=== PATIENT | male | born 1975 | race Caucasian/White ===

== ENCOUNTER 2018-05-08 14:23 | Emergency (ER) | payer OTHER, MEDICARE, MEDICAID ==
[~2018-05-08] VITALS: Ht 175.3 cm; Wt 70.3 kg
--- OUTSIDE RECORDS SUMMARY | ~2018-05-08 | XMS | Encounter Summary ---
Demographics + + + | Address | [address] | | | [place] [address] | + + + | Home Phone | | + + + | Preferred Language | Unknown | + + + | Marital Status | Single | + + + | Baptist Affiliation | NON | + + + | Race | White | + + + | Ethnic Group | Not or | + + + Author + + + | Author | [facility] | + + + | Organization | [facility] | + + + | Address | Unknown | + + + | Phone | Unavailable | + + + Support + + +---------+ + | Name | Relationship | Address | Phone | + + +---------+ + | Vi Chatman | ECON | Unknown | | + + +---------+ + Care Team Providers + +------+ + | Care Library Page Name | Role | Phone | + +------+ + | Tony Emmanuel MD | PCP | | + +------+ + Encounter Details +--------+ + + + + | Date | Type | Department | Care Team | Description | +--------+ + + + + | 04/19/ | Abstract | Neurologic | Lavell Wallace, | | | 2018 | | Oncology at | MD [facility] | | | | | [facility] | [address] | | | | | [address] | [place], [place] | | | | | [facility] | [address] | | | | | Mailcode: [address] | [phone] | | | | | [facility] | | | | | | [place], [place] | | | | | | [address] | | | | | | [phone] | | | +--------+ + + + + Social History + + + +--------+ + | Tobacco Use | Types | Packs/Day | Years | Date | | | | | Used | | + + + +--------+ + | Former Smoker | Cigarettes | 1 | 4 | Quit: 08/16/2002 | + + + +--------+ + + +---+---+---+ | Smokeless Tobacco: | | | | | Never Used | | | | + +---+---+---+ + + +---------+ + | Alcohol Use | Drinks/We | oz/Week | Comments | | | ek | | | + + +---------+ + | Yes | | | rare | + + +---------+ + + + + | Sex Assigned at | Date Recorded | | | | + + + | Not on file | | + + + as of this encounter Plan of Treatment +--------+---------+ + + + | Date | Type | Specialty | Care Team | Description | +--------+---------+ + + + | 06/30/ | Office | Neurology | | | | 2018 | Visit | | | | +--------+---------+ + + + | 07/06/ | Office | Neurology | Wanda Miranda, | | | 2017 | Visit | | [address] | | | | | | [address] | | | | | | [place], [place] | | | | | | [address] | | | | | | [phone] | | | | | | | | +--------+---------+ + + + as of this encounter Procedures + +--------+ + + + | Procedure Name | Priori | Date/Time | Associated Diagnosis | Comments | | | ty | | | | + +--------+ + + + | CBC, WITH | Routin | 04/08/2018 | | Results for this | | DIFFERENTIAL | e | 12:00 AM | | procedure are in the | | | | PDT | | results section. | + +--------+ + + + in this encounter Results CBC, WITH DIFFERENTIAL (04/08/2018) + +-------+ + + | Component | Value | Ref Range | Performed At | + +-------+ + + | WHITE CELL COUNT | 4.1 | K/cu mm | [facility] | | | | | [place] | + +-------+ + + | RED CELL COUNT | 3.89 | M/cu mm | [facility] | | | | | [place] | + +-------+ + + | HEMOGLOBIN | 13.6 | 13.5 - 17.5 g/dL | [facility] | | | | | [place] | + +-------+ + + | HEMATOCRIT | 40.9 | % | [facility] | | | [place] | + +-------+ + + | MCV | 105.4 | fL | [facility] | | | | [place] | + +-------+ + + | MCH | 35 | pg | [facility] | | | | | [place] | + +-------+ + + | MCHC | 33 | g/dL | [facility] | | | | | [place] | + +-------+ + + | PLATELET COUNT | 189 | K/cu mm | [facility] | | | | [place] | + +-------+ + + | NEUTROPHIL % | 51.2 | % | [facility] | | | | | [place] | + +-------+ + + | LYMPHOCYTE % | 38.8 | % | [facility] | | | | [place] | + +-------+ + + | MONOCYTE % | 7.4 | % | [facility] | | | | [place] | + +-------+ + + | EOS % | 1.6 | % | [facility] | | | | | [place] | + +-------+ + + | BASO % | 1 | % | [facility] | | | | [place] | + +-------+ + + | RDW | 15.3 | % | [facility] | | | | | [place] | + +-------+ + + + + | Specimen | + + | Blood - Blood | + + + + + + + | Performing | Address | City/State/Zipcode | Phone Number | | Organization | | | | + + + + + | [facility] - | [address] | [place] | [phone] | | [place] | | | | + + + + + in this encounter Visit Diagnoses Not on filein this encounter"
--- OUTSIDE RECORDS SUMMARY | ~2018-05-08 | XMS | Encounter Summary ---
Demographics + + + | Address | [address] | | | [place] [address] | + + + | Home Phone | | + + + | Preferred Language | Unknown | + + + | Marital Status | Single | + + + | Latter Day Affiliation | NON | + + + | Race | White | + + + | Ethnic Group | Not or | + + + Author + + + | Author | [facility] | + + + | Organization | [facility] | + + + | Address | Unknown | + + + | Phone | Unavailable | + + + Support + + +---------+ + | Name | Relationship | Address | Phone | + + +---------+ + | Vi Chatman | ECON | Unknown | | + + +---------+ + Care Team Providers + +------+ + | Care Business English Instructor Name | Role | Phone | + +------+ + | Tony Emmanuel MD | PCP | | + +------+ + Encounter Details +--------+ + + + + | Date | Type | Department | Care Team | Description | +--------+ + + + + | 03/23/ | Abstract | Neurologic | Lavell Wallace, | | | 2018 | | Oncology at | [facility] | | | | | [facility] | [address] | | | | | [address] | [place], [place] | | | | | [facility] | [address] | | | | | Mailcode: [address] | [phone] | | | | | [facility] | | | | | | [place], [place] | | | | | | [address] | | | | | | [phone] | | | +--------+ + + + [...] [address] | | | | | | [place], [place] | | | | | | [address] | | | | | | [phone] | | | | | | | | +--------+---------+ + + + as of this encounter Procedures + +--------+ + + + | Procedure Name | Priori | Date/Time | Associated Diagnosis | Comments | | | ty | | | | + +--------+ + + + | CBC, WITH | Routin | 03/18/2018 | | Results for this | | DIFFERENTIAL | e | 12:00 AM | | procedure are in the | | | | PDT | | results section. | + +--------+ + + + in this encounter Results NIXON, WITH DIFFERENTIAL (03/18/2018) + + + + + | Component | Value | Ref Range | Performed At | + + + + + | WHITE CELL COUNT | 4.1 | K/cu mm | [facility] | | | | | [place] | + + + + + | RED CELL COUNT | 3.77 | M/cu mm | [facility] | | | | | [place] | + + + + + | HEMOGLOBIN | 13.1 (A) | 13.5 - 17.5 g/dL | [facility] | | | | | [place] | + + + + + | HEMATOCRIT | 38.3 | % | [facility] | | | | | [facility] | + + + + + | MCV | 101.8 | fL | [facility] | | | | | [place] | + + + + + | MCH | 35 | pg | [facility] | | | | | [place] | + + + + + | MCHC | 34 | g/dL | [facility] | | | | | [place] | + + + + + | PLATELET COUNT | 129 | K/cu mm | [facility] | | | | | [place] | + + + + + | NEUTROPHIL % | 55.2 | % | [facility] | | | | | [place] | + + + + + | LYMPHOCYTE % | 35.5 | % | [facility] | | | | | [place] | + + + + + | MONOCYTE % | 5.3 | % | [facility] | | | | | [place] | + + + + + | EOS % | 3.1 | % | [facility] | | | | | [place] | + + + + + | BASO % | 0.9 | % | [facility] | | | | | [place] | + + + + + | RDW | 14.4 | % | [facility] | | | | | [place] | + + + + + + + | Specimen | + + | Blood - Blood | + + + + + + + | Performing | Address | City/State/Zipcode | Phone Number | | Organization | | | | + + + + + | [facility] - | [address] | [place] | [phone] | | [place] | | | | + + + + + in this encounter Visit Diagnoses Not on filein this encounter"
--- OUTSIDE RECORDS SUMMARY | ~2018-05-08 | XMS | Encounter Summary ---
Demographics + + + | Address | [address] | | | [place] [address] | + + + | Home Phone | | + + + | Preferred Language | Unknown | + + + | Marital Status | Single | + + + | Jew Affiliation | NON | + + + | Race | White | + + + | Ethnic Group | Not or | + + + Author + + + | Author | [facility] | + + + | Organization | [facility] | + + + | Address | Unknown | + + + | Phone | Unavailable | + + + Support + + +---------+ + | Name | Relationship | Address | Phone | + + +---------+ + | Vi Chatman | ECON | Unknown | | + + +---------+ + Care Team Providers + +------+ + | Care System Administration Manager Name | Role | Phone | + +------+ + | Tony Emmanuel MD | PCP | | + +------+ + Encounter Details +--------+ + + + + | Date | Type | Department | Care Team | Description | +--------+ + + + + | 03/14/ | Telephone | Neurologic | Geno Veras, | | | 2018 | | Oncology at | [employer] [address] | | | | | [facility] | [address] | | | | | [address] | [place], [place] | | | | | [facility] | [address] | | | | | Mailcode: [address] | [phone] | | | | | Physicians [facility] | | | | | | [place], [place] | | | | | | [address] | | | | | | [phone] | | | +--------+ + + + [...] Office | Neurology | | | | 2017 | Visit | | | | +--------+---------+ + + + | 07/06/ | Office | Neurology | Wanda Miranda, | | | 2017 | Visit | | [address] | | | | | | [address] | | | | | | [place], [place] | | | | | | [address] | | | | | | [phone] | | | | | | | | +--------+---------+ + + + as of this encounter Visit Diagnoses Not on filein this encounter"
--- OUTSIDE RECORDS SUMMARY | ~2018-05-08 | XMS | Encounter Summary ---
Demographics + + + | Address | [address] | | | [place] [address] | + + + | Home Phone | | + + + | Preferred Language | Unknown | + + + | Marital Status | Single | + + + | Rastafari Affiliation | NON | + + + | Race | White | + + + | Ethnic Group | Not or | + + + Author + + + | Author | [facility] | + + + | Organization | [facility] | + + + | Address | Unknown | + + + | Phone | Unavailable | + + + Support + + +---------+ + | Name | Relationship | Address | Phone | + + +---------+ + | Vi Chatman | ECON | Unknown | | + + +---------+ + Care Team Providers + +------+ + | Care Software Installation Engineer Name | Role | Phone | + +------+ + | Tony Emmanuel MD | PCP | | + +------+ + Encounter Details +--------+ + + + + | Date | Type | Department | Care Team | Description | +--------+ + + + + | 03/29/ | Pharmacy | Specialty Pharmacy | | | | 2017 | Visit | Services [address] | | | | [address] | | | | | | [place], [place] | | | | | | [address] | | | | | | [phone] | | | +--------+ + + + [...] [address] | | | | | | [place], [place] | | | | | | [address] | | | | | | [phone] | | | | | | | | +--------+---------+ + + + as of this encounter Visit Diagnoses Not on filein this encounter"
--- OUTSIDE RECORDS SUMMARY | ~2018-05-08 | XMS | Encounter Summary ---
Demographics + + + | Address | [address] | | | [place] [address] | + + + | Home Phone | | + + + | Preferred Language | Unknown | + + + | Marital Status | Single | + + + | Mormon Affiliation | NON | + + + | Race | White | + + + | Ethnic Group | Not or | + + + Author + + + | Author | [facility] | + + + | Organization | [facility] | + + + | Address | Unknown | + + + | Phone | Unavailable | + + + Support + + +---------+ + | Name | Relationship | Address | Phone | + + +---------+ + | Vi Chatman | ECON | Unknown | | + + +---------+ + Care Team Providers + +------+ + | Care Rapid Outsole Stitcher Name | Role | Phone | + [...] | | | [address] | [place], [place] | | | | | [facility] | [address] | | | | | Mailcode: [address] | [phone] | | | | | [facility] | | | | | | [place], [place] | | | | | | [address] | | | | | | [phone] | | | +--------+ + + + [...] [address] | | | | | | [place], [place] | | | | | | [address] | | | | | | [phone] | | | | | | | [address] | [place] | [phone] | | [place] | | | | + + + + + in this encounter Visit Diagnoses Not on filein this encounter"
--- OUTSIDE RECORDS SUMMARY | ~2018-05-08 | XMS | Encounter Summary ---
Demographics + + + | Address | [address] | | | [place] [address] | + + + | Home Phone | | + + + | Preferred Language | Unknown | + + + | Marital Status | Single | + + + | Scientology Affiliation | NON | + + + | Race | White | + + + | Ethnic Group | Not or | + + + Author + + + | Author | [facility] | + + + | Organization | [facility] | + + + | Address | Unknown | + + + | Phone | Unavailable | + + + Support + + +---------+ + | Name | Relationship | Address | Phone | + + +---------+ + | Vi Chatman | ECON | Unknown | | + + +---------+ + Care Team Providers + +------+ + | Care Insurance Writer Name | Role | Phone | + [...] | | | [address] | [place], [place] | | | | | [facility] | [address] | | | | | Mailcode: [address] | [phone] | | | | | Phys[facility] | | | | | | [place], [place] | | | | | | [address] | | | | | | [phone] | | | +--------+ + + + [...] [address] | | | | | | [place], [place] | | | | | | [address] | | | | | | [phone] | | | | | | | | +--------+---------+ + + + as of this encounter Procedures + +--------+ + + + | Procedure Name | Priori | Date/Time | Associated Diagnosis | Comments | | | ty | | | | + +--------+ + + + | COMPLETE METABOLIC | Routin | 04/08/2018 | | Results for this | | SET | e | 12:00 AM | | procedure are in the | | (NA,K,CL,CO2,BUN,CRE | | PDT | | results section. | | AT,GLUC,CA,AST,ALT,B | | | | | | MARIELENA TOTAL,ALK | | | | | | PHOS,ALB,PROT TOTAL) | | | | | + +--------+ + + + in this encounter Results COMPLETE METABOLIC SET (NA,K,CL,CO2,BUN,CREAT,GLUC,CA,AST,ALT,BILI TOTAL,ALK PHOS,ALB,PROT TOTAL) (04/08/2018) + +-------+ + + | Component | Value | Ref Range | Performed At | + +-------+ + + | GLUCOSE, PLASMA | 99 | 65 - 110 mg/dL | [facility] - | | (LAB) | | | [place] | + +-------+ + + | BUN, PLASMA (LAB) | 16 | mg/dL | [facility] | | | | | [place] | + +-------+ + + | CREATININE PLASMA | 0.89 | mg/dL | [facility] - | | (LAB) | | | [place] | + +-------+ + + | TOTAL PROTEIN, | 6.8 | g/dL | [facility] - | | PLASMA (LAB) | | | [place] | + +-------+ + + | ALBUMIN, PLASMA | 4.4 | g/dL | [facility] | | (LAB) | | | [place] | + +-------+ + + | CALCIUM, PLASMA | 9.1 | mg/dL | [facility] | | (LAB) | | | [place] | + +-------+ + + | BILIRUBIN TOTAL | 0.3 | Transcutaneous | [facility] - | | | | Bilirubinometer | [place] | + +-------+ + + | ALK PHOS | 135 | U/L | [facility] | | | | | [place] | + +-------+ + + | AST(SGOT) | 14 | U/L | [facility] | | | | | [place] | + +-------+ + + | SODIUM, PLASMA (LAB) | 141 | mmol/L | [facility] - | | | | | [place] | + +-------+ + + | POTASSIUM, PLASMA | 4.2 | mmol/L | [facility] | | (LAB) | | | [place] | + +-------+ + + | CHLORIDE, PLASMA | 105 | mmol/L | [facility] | | (LAB) | | | [place] | + +-------+ + + | TOTAL CO2, PLASMA | 23 | mmol/L | [facility] - | | (LAB) | | | [place] | + +-------+ + + | ALT (SGPT) | 16 | U/L | [facility] - | | | | | [place] | + +-------+ + + + + | Specimen | + + | Blood - Blood | + + + + + + + | Performing | Address | City/State/Zipcode | Phone Number | | Organization | | | | + + + + + | [facility] - | [address] | [place] | [phone] | | [place] | | | | + + + + + in this encounter Visit Diagnoses Not on filein this encounter"
--- OUTSIDE RECORDS SUMMARY | ~2018-05-08 | XMS | Encounter Summary ---
Demographics + + + | Address | [address] | | | [place] [address] | + + + | Home Phone | | + + + | Preferred Language | Unknown | + + + | Marital Status | Single | + + + | Voodoo Affiliation | NON | + + + | Race | White | + + + | Ethnic Group | Not or | + + + Author + + + | Author | [facility] | + + + | Organization | [facility] | + + + | Address | Unknown | + + + | Phone | Unavailable | + + + Support + + +---------+ + | Name | Relationship | Address | Phone | + + +---------+ + | Vi Chatman | ECON | Unknown | | + + +---------+ + Care Team Providers + +------+ + | Care Cashier Supervisor Name | Role | Phone | + +------+ + | Tony Emmanuel MD | PCP | | + +------+ + Encounter Details +--------+ + + + + | Date | Type | Department | Care Team | Description | +--------+ + + + + | 02/21/ | Abstract | Neurologic | Lavell Wallace, | | | 2018 | | Oncology at | [facility] | | | | | [facility] | [address] | | | | | [address] | [place], [place] | | | | | [facility] | [address] | | | | | Mailcode: [address] | [phone] | | | | | Physicians [facility] | | | | | | [place], [place] | | | | | | [address] | | | | | | [phone] | | | +--------+ + + + [...] [address] | | | | | | [place], [place] | | | | | | [address] | | | | | | [phone] | | | | | | | | +--------+---------+ + + + as of this encounter Procedures + +--------+ + + + | Procedure Name | Priori | Date/Time | Associated Diagnosis | Comments | | | ty | | | | + +--------+ + + + | CBC, WITH | Routin | 02/18/2018 | | Results for this | | DIFFERENTIAL | e | 12:00 AM | | procedure are in the | | | | PDT | | results section. | + +--------+ + + + in this encounter Results NIXON, WITH DIFFERENTIAL (02/18/2018) + +-------+ + + | Component | Value | Ref Range | Performed At | + +-------+ + + | WHITE CELL COUNT | 5.7 | K/cu mm | [facility] | | | | | [place] | + +-------+ + + | RED CELL COUNT | 4 | M/cu mm | [facility] | | | | | [place] | + +-------+ + + | HEMOGLOBIN | 14 | 13.5 - 17.5 g/dL | [facility] | | | | | [place] | + +-------+ + + | HEMATOCRIT | 40.3 | % | [facility] | | | | | [place] | + +-------+ + + | MCV | 100.9 | fL | [facility] | | | | | [place] | + +-------+ + + | MCH | 35 | pg | [facility] | | | | | [place] | + +-------+ + + | MCHC | 35 | g/dL | [facility] | | | | | [place] | + +-------+ + + | PLATELET COUNT | 148 | K/cu mm | [facility] | | | | | [place] | + +-------+ + + | NEUTROPHIL % | 67 | % | [facility] | | | | | [place] | + +-------+ + + | LYMPHOCYTE % | 23.7 | % | [facility] | | | | | [place] | + +-------+ + + | MONOCYTE % | 8.3 | % | [facility] | | | | | [place] | + +-------+ + + | EOS % | 0.4 | % | [facility] | | | | | [place] | + +-------+ + + | BASO % | 0.6 | % | [facility] | | | | | [place] | + +-------+ + + | RDW | 13.1 | % | [facility] - | [address] | [place] | [phone] | | [place] | | | | + + + + + in this encounter Visit Diagnoses Not on filein this encounter"
--- OUTSIDE RECORDS SUMMARY | ~2018-05-08 | XMS | Clinical Summary ---
Demographics + + + | Address | [address] | | | [place] [address] | + + + | Home Phone | | + + + | Preferred Language | Unknown | + + + | Marital Status | Single | + + + | Bahai Affiliation | 1001 | + + + | Race | Unknown | + + + | Ethnic Group | Unknown | + + + Author + + + | Author | [facility] | | | and Kashana | + + + | Organization | [facility] | | | and Kashana | + + + | Address | Unknown | + + + | Phone | Unavailable | + + + Support + + +---------+ + | Name | Relationship | Address | Phone | + + +---------+ + | Albert Chatman | ECON | Unknown | | + + +---------+ + Care Team Providers + +------+ + | Care Residential Carpet Installer Name | Role | Phone | + +------+ + | No, Physician | PP | Unavailable | + +------+ + Allergies + + + + + + | Active Allergy | Reactions | Severity | Noted | Comments | | | | | Date | | + + + + + + | Clindamycin | Rash | Low | 09/13/19 | | | | | | 15 | | + + + + + + | Levetiracetam | Other (See Comments) | | 09/06/19 | Unclear if the | | | | | 14 | psychosis was truly | | | | | | due to the Keppra or | | | | | | another cause, but | | | | | | symptoms resolved | | | | | | after stopping | | | | | | Keppra | + + + + + + Current Medications + + +-------+---------+------+------+-------+ | Prescription | Sig. | Disp. | Refills | Star | End | Statu | | | | | | t | Date | s | | | | | | Date | | | + + +-------+---------+------+------+-------+ | phenytoin | Take 1 capsule by | | | 08/16 | | Activ | | (DILANTIN) 100 mg ER | mouth Daily. Take by | | | 04/04 | | e | | capsule | mouth, 500 mg once | | | 18 | | | | | daily on odd days, | | | | | | | | 600 mg once daily on | | | | | | | | even days | | | | | | + + +-------+---------+------+------+-------+ | pseudoePHEDrine | Take 1 tablet by | | | | | Activ | | (SUDOGEST) 30 mg | mouth every 6 hours | | | | | e | | tablet | as needed. | | | | | | + + +-------+---------+------+------+-------+ | topiramate | Take 2 tablets by | | | 02/2 | | Activ | | (TOPAMAX) 100 mg | mouth 2 times daily. | | | 8 | | e | | tablet | | | | 17 | | | + + +-------+---------+------+------+-------+ | Zinc 30 MG TABS | Take 1 tablet by | | | | | Activ | | | mouth Daily. | | | | | e | + + +-------+---------+------+------+-------+ | | Take 2 tablets by | | | | | Activ | | Aspirin-Acetaminophe | mouth every 6 hours | | | | | e | | n-Caffeine (EXCEDRIN | as needed. 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 Lomas, | | see detailed noted from 09/13/2014-seizures started in 2008, | | associated with tumor-initially treated with keppra but concern | | for psychosis and this was discontinued.-last seizure activity in | | 03/2016 associated with medication non-compliance, reported to | | have dilantin shortage-continue home phenytoin 500 mg vs 600 mg | | every other day and topiramate 200 mg BID VERIFIED | + + Encounters +--------+ + + + + | Date | Type | Specialty | Care Team | Description | +--------+ + + + + | 03/22/ | Hospital | | Geno Veras, | Oligoastrocytoma | | 2017 | Encounter | | ALMOND ROASTER | (HCC) | +--------+ + + + + | 03/22/ | Hospital | | Maddy Gonzalez | Glioma (HCC) | | 2017 | Encounter | | MD Marcy | (Primary Dx) | +--------+ + + + + | 03/21/ | Procedure | | | | | 2018 | Pass | | | | +--------+ + + + + | 03/21/ | Ancillary | | Geno Veras, | 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 | | ALMOND ROASTER | (HCC) | +--------+ + + + + from Last 3 Months Family History + + +------+ + | Medical History | Relation | Name | Comments | + + +------+ + | Brain cancer | Brother | | | + + +------+ + | Cancer | Maternal | | | | | Grandmoth | | | | | er | | | + + +------+ + + +------+ + + | Relation | Name | Status | Comments | + +------+ + + | Brother | | | | + +------+ + + | Father | | Alive | | + +------+ + + | Maternal Grandmother | | | | + +------+ + + | Mother | | Alive | | + +------+ + + Social History + +-------+ +--------+ + | Tobacco Use | Types | Packs/Day | Years | Date | | | | | Used | | + +-------+ +--------+ + | Former Smoker | | 0.5 | 8 | Quit: 2000 | + +-------+ +--------+ + + +---+---+---+ | Smokeless Tobacco: | | | | | Former User | | | | + +---+---+---+ + + +---------+ + | Alcohol Use | Drinks/We | oz/Week | Comments | | | ek | | | + + +---------+ + | No | | | seldom | + + +---------+ + + + + | Sex Assigned at | Date Recorded | | | | + + + | Not on file | | + + + Last Filed Vital Signs + + + + | Vital Sign | Reading | Time Taken | + + + + | Blood Pressure | 138/84 | 03/22/2018848 PDT | + + + + | Pulse | 64 | 03/22/2018848 PDT | + + + + | Temperature | 36.5 C (97.7 F) | 03/22/2018848 PDT | + + + + | Respiratory Rate | 16 | 03/22/2018848 PDT | + + + + | Oxygen Saturation | 100% | 03/22/2018848 PDT | + + + + | Inhaled Oxygen | - | - | | Concentration | | | + + + + | Weight | 86.1 kg (189 lb 13.1 | 03/22/2018848 PDT | | | oz) | | + + + + | Height | - | - | + + + + | Body Mass Index | - | - | + + + + Plan of Treatment +--------+ + + + + | Date | Type | Specialty | Care Team | Description | +--------+ + + + + | 06/24/ | Appointment | | Maddy Gonzalez | | | 2017 | | | MD Marcy [address] | | | | | | [place] | | | | | | [id number] | | | | | | | | +--------+ + + + + + + + + + | Health Maintenance | Due Date | Last Done | Comments | + + + + + | Diabetic Eye Exam | | | | | (Bi-Annually) | 1 | | | + + + + + | Diabetic Foot Exam | | | | | | 1 | | | + + + + + | Hemoglobin A1c Q3 | | | | | Months | 1 | | | + + + + + | Vaccine: | | | | | Dtap/Tdap/Td (1 - | 2 | | | | Tdap) | | | | + + + + + | Vaccine: | | | | | Pneumococcal 19-64 | 2 | | | | Highest Risk (1 of 3 | | | | | - PCV13) | | | | + + + + + | Microalbumin | | | | | Screening | 5 | | | + + + + + | Statin Therapy | | | | | (optimal intensity) | 5 | | | + + + + + | Vaccine: Influenza | | 10/12/2017, 09/08/2013 | | | (#1) | 8 | | | + + + + + Procedures + +--------+ + + + | Procedure Name | Priori | Date/Time | Associated Diagnosis | Comments | | | ty | | | | + +--------+ + + + | MRI BRAIN W WO | Routin | 03/22/2018 | Oligoastrocytoma | Results for this | | CONTRAST | e | 1040 PDT | (HCC) | procedure are in the | | | | | | results section. | + +--------+ + + + from Last 3 Months Results MRI Brain w wo Contrast (03/22/2018 1040) + + + | Narrative | Performed At | + + + | TECHNIQUE: MRI of the brain with intravenous administration of | [facility] | | contrast. Sequences include sagittal T1, axial diffusion-weighted | | | imaging and ADC maps, axial T2, axial T2 FLAIR, axial susceptibility | | | weighted imaging, axial T1, coronal T1, and postcontrast axial, | | | coronal, and sagittal T1-weighted images. 8 mL Gadavist was | | | administered intravenously. CLINICAL INFORMATION: Oligoastrocytoma | | | (HCC) P[facility]USH IMAGES TO [facility]: COMPARISON: MRI dated | | | 01/20/2018 and 11/25/2017. FINDINGS: High right frontoparietal | | | craniotomy changes with tumor resection cavity involving the mesial | | | right frontal lobe and superior right corpus callosum. Mild T1 | | | hyperintensity noted within the brain parenchyma along the anterior | | | and posterior margins of the resection cavity. The previously | | | described gyriform-like enhancement at the mesial right | | | frontoparietal region is again noted along extending posteriorly from | | | the posterior margin of the resection cavity and demonstrates mildly | | | decreased enhancement and size from prior imaging. This area | | | currently measures up to 1.3 cm in the transverse dimension, | | | previously 1.5 cm and 1.0 cm in the superior to inferior dimension, | | | previously 1.3 cm. Probable minimal postcontrast enhancement | | | within the brain parenchyma at the anterior margin of the resection | | | cavity. Gliotic changes are noted surrounding the resection | | | cavity. Expected dilatation of the right lateral ventricle. No | | | ventriculomegaly. No significant mass effect. No focal major | | | vascular structure abnormality. IMPRESSION - Slight | | | interval decreased size and enhancement of the previously described | | | lobulated, gyriform of the mesial right frontal parietal region. | | | High right frontoparietal craniotomy changes with resection cavity. | | | Dictated and Signed by: Davie Vanegas MD Electronically | | | signed: 03/22/2018 2:17 PM | | + + + + + | Procedure Note | + + | Nura, Rad Results In - 03/22/2018 1420 PDT | | TECHNIQUE: MRI of the brain with intravenous administration of contrast. | | Sequences include sagittal T1, axial diffusion-weighted imaging and ADC maps, | | axial T2, axial T2 FLAIR, axial susceptibility weighted imaging, axial T1, | | coronal T1, and postcontrast axial, coronal, and sagittal T1-weighted images. | | 8 mL Gadavist was administered intravenously. | | | | CLINICAL INFORMATION: Oligoastrocytoma (HCC) | | PLEASE PUSH IMAGES TO [facility] [place]: | | | | COMPARISON: MRI dated 01/20/2018 and 11/25/2017. | | | | FINDINGS: | | High right frontoparietal craniotomy changes with tumor resection cavity | | involving the mesial right frontal lobe and superior right corpus callosum. | | Mild T1 hyperintensity noted within the brain parenchyma along the anterior and | | posterior margins of the resection cavity. The previously described | | gyriform-like enhancement at the mesial right frontoparietal region is again | | noted along extending posteriorly from the posterior margin of the resection | | cavity and demonstrates mildly decreased enhancement and size from prior | | imaging. This area currently measures up to 1.3 cm in the transverse dimension, | | previously 1.5 cm and 1.0 cm in the superior to inferior dimension, previously | | 1.3 cm. Probable minimal postcontrast enhancement within the brain parenchyma | | at the anterior margin of the resection cavity. Gliotic changes are noted | | surrounding the resection cavity. | | | | Expected dilatation of the right lateral ventricle. No ventriculomegaly. No | | significant mass effect. | | | | No focal major vascular structure abnormality. | | | | | | IMPRESSION - | | Slight interval decreased size and enhancement of the previously described | | lobulated, gyriform of the mesial right frontal parietal region. | | | | High right frontoparietal craniotomy changes with resection cavity. | | | | Dictated and Signed by: Davie Vanegas MD | | Electronically signed: 03/22/2018 2:17 PM | + + + +---------+ + + | Performing | Address | City/State/Zipcode | Phone Number | | Organization | | | | + +---------+ + + | [facility] | | | | + +---------+ + + from Last 3 Months Insurance + +--------+ +--------+ +---------+ | Payer | Benefi | Subscriber | Type | Phone | Address | | | t Plan | ID | | | | | | / | | | | | | | Group | | | | | + +--------+ +--------+ +---------+ | MEDICARE | MEDICA | [id number] | Medica | [phone] | | | RE | | re | [phone] | | | | PART A | | | | | | | AND B | | | | | + +--------+ +--------+ +---------+ + +--------+ +--------+ + + | Guarantor Name | Accoun | Relation to | Date | Phone | Billing Address | | | t Type | Patient | of | | | | | | | | | | + +--------+ +--------+ + + | ORTIZ CHATMAN | Person | Self [birth year] | Home: | [address] | | | al/Fam | | [phone] | [phone] | [place] [address] | | | raffaele | | | [phone] | | + +--------+ +--------+ + +"
--- OUTSIDE RECORDS SUMMARY | ~2018-05-08 | XMS | Encounter Summary ---
Demographics + + + | Address | [address] | | | [place] [address] | + + + | Home Phone | | + + + | Preferred Language | Unknown | + + + | Marital Status | Single | + + + | Sabianism Affiliation | 1001 | + + + | Race | Unknown | + + + | Ethnic Group | Unknown | + + + Author + + + | Author | [facility] | | | and [place]ana | + + + | Organization | [facility] | | | and Kashana | [...] Team Providers + +------+ + | Care Client Success Director Name | Role | Phone | + +------+ + | No, Physician | PCP | Unavailable | + +------+ + Encounter Details +--------+ + + + + | Date | Type | Department | Care Team | Description | +--------+ + + + + | 03/21/ | Procedure | [facility] | | | | 2018 | Pass | [facility] MRI [address] | | | | | | [place], | | | | | | [place] [address] | | | | | | [phone] | | | +--------+ + + + + Social History + +-------+ +--------+ [...] as of this encounter Plan of Treatment +--------+ + + + + | Date | Type | Specialty | Care Team | Description | +--------+ + + + + | 06/24/ | Appointment | Radiation Oncology | Maddy Gonzalez | | | 2017 | | | MD Marcy [address] | | | | | | [place] | | | | | | [address] | | | | | | | | +--------+ + + + + as of this encounter Visit Diagnoses Not on filein this encounter"
--- OUTSIDE RECORDS SUMMARY | ~2018-05-08 | XMS | Encounter Summary ---
Demographics + + + | Address | [address] | | | [place] [address] | + + + | Home Phone | | + + + | Preferred Language | Unknown | + + + | Marital Status | Single | + + + | Voodoo Affiliation | 1001 | + + + | Race | Unknown | + + + | Ethnic Group | Unknown | + + + Author + + + | Author | [facility] | | | and Kashana | + + + | Organization | [facility] | | | and Kashana [...] Team Providers + +------+ + | Care Case Work Aide Name | Role | Phone | + +------+ + | No, Physician | PCP | Unavailable | + +------+ + Reason for Referral Diagnostic/Screening (Routine) +--------+--------+ + + + + | Status | Reason | Specialty | Diagnoses / | Referred By | Referred To | | | | | Procedures | Contact | Contact | +--------+--------+ + + + + | Closed | | Radiology | Diagnoses | Rito, | [facility] | | | | | | MICHELE Lora | [address] | | | | | Oligoastrocy | [address] | [place], | | | | | radha (HCC) | [place] | [place] | | | | | Procedures | [address] | [address] | | | | | MRI Brain w | [place], [place] | Phone: | | | | | wo Contrast | [address] | [phone] | | | | | | Phone: | Fax: | | | | | | [phone] | [phone] | | | | | | Fax: | | | | | | | [phone] | | +--------+--------+ + + + + Diagnostic/Screening (Routine) +--------+--------+ + + + + | Status | Reason | Specialty | Diagnoses / | Referred By | Referred To | | | | | Procedures | Contact | Contact | +--------+--------+ + + + + | Closed | | Radiology | Diagnoses | Rito, | [facility] | | | | | | Geno CONVEYOR WORKER | [address] | | | | | Oligoastrocy | [address] | [place], | | | | | radha (HCC) | [place] | [place] | | | | | Procedures | [address] | [address] | | | | | MRI Brain w | [place], [place] | Phone: | | | | | wo Contrast | [address] | [phone] | | | | | | Phone: | Fax: | | | | | | [phone] | [phone] | | | | | | Fax: | | | | | | | [phone] | | +--------+--------+ + + + + Reason for Visit Diagnostic/Screening (Routine) +--------+--------+ + + + + | Status | Reason | Specialty | Diagnoses / | Referred By | Referred To | | | | | Procedures | Contact | Contact | +--------+--------+ + + + + | Closed | | Radiology | Diagnoses | Rito, | [facility] | | | | | | MICHELE Lora | [address] | | | | | Oligoastrocy | [address] | [place], | | | | | radha (HCC) | [place] | [place] | | | | | Procedures | [address] | [address] | | | | | MRI Brain w | [place], [place] | Phone: | | | | | wo Contrast | [address] | [phone] | | | | | | Phone: | Fax: | | | | | | [phone] | [phone] | | | | | | Fax: | | | | | | | [phone] | | +--------+--------+ + + + + Encounter Details +--------+ + + + + | Date | Type | Department | Care Team | Description | +--------+ + + + + | 03/22/ [facility] | Geno Veras, | Oligoastrocytoma | | 2018 | Encounter | MED CTR MRI [address] | CONVEYOR WORKER [address] [facility] | ([facility]) | | | | [address] [place], | [facility] | | | | | [place] [address] | [place], [place] | | | | | [phone] | [address] | | | | | | [phone] | | | | | | | [...] + + + as of this encounter Medications at Time of Discharge + + +-------+---------+ + + | Medication | Sig. | Disp. | Refills | Start | End Date | | | | | | Date | | + + +-------+---------+ + + | | Take 2 tablets by | | | | | | Aspirin-Acetaminophe | mouth every 6 hours | | | | | | n-Caffeine (EXCEDRIN | as needed. | | | | | | PO) | | | | | | + + +-------+---------+ + + | phenytoin | Take 1 capsule by | | | 09/02/19 | | | (DILANTIN) 100 mg ER | mouth Daily. Take by | | | 18 | | | capsule | mouth, 500 mg once | | | | | | | daily on odd days, | | | | | | | 600 mg once daily on | | | | | | | even days | | | | | + + +-------+---------+ + + | pseudoePHEDrine | Take 1 tablet by | | | | | | (SUDOGEST) 30 mg | mouth every 6 hours | | | | | | tablet | as needed. | | | | | + + +-------+---------+ + + | topiramate | Take 2 tablets by | | | 10/13/19 | | | (TOPAMAX) 100 mg | mouth 2 times daily. | | | 17 | | | tablet | | | | | | + + +-------+---------+ + + | Zinc 30 MG TABS | Take 1 tablet by | | | | | | | mouth Daily. | | | | | + + +-------+---------+ + + as of this encounter Plan of Treatment +--------+ + + + + | Date | Type | Specialty | Care Team | Description | +--------+ + + + + | 06/24/ | Appointment | Radiation Oncology | Maddy Gonzalez | | | 2018 | | | MD [address] | | | | | | [place] | | | | | | [address] | | | | | | | [...] + + + in this encounter Results MRI Brain w wo Contrast (03/22/2018 [...] (HCC) | | PLEASE PUSH IMAGES TO [facility] [place]: | | | | COMPARISON: MRI [...] | | | + +---------+ + + in this encounter Visit Diagnoses + + | Diagnosis | + + | Oligoastrocytoma (HCC) | + + Administered Medications + +--------+ +-------+------+------+ | Medication Order | MAR | Action | Dose | Rate | Site | | | Action | Date | | | | + +--------+ +-------+------+------+ | gadobutrol (GADAVIST) injection | Given | 03/22/2018 | 8 mLs | | | | 8 mL 8 mL, Intravenous, ONCE | | 10:41 | | | | | PRN, Other, Starting 03/22/18 | | PDT | | | | | at 1041, For 1 dose, MRI | | | | | | + +--------+ +-------+------+------+ +---+---+ | | | +---+---+ in this encounter"
--- OUTSIDE RECORDS SUMMARY | ~2018-05-08 | XMS | Encounter Summary ---
Demographics + + + | Address | [address] | | | [place] [address] | + + + | Home Phone | | + + + | Preferred Language | Unknown | + + + | Marital Status | Single | + + + | Temple Affiliation | NON | + + + | Race | White | + + + | Ethnic Group | Not or | + + + Author + + + | Author | [facility] | + + + | Organization | [facility] | + + + | Address | Unknown | + + + | Phone | Unavailable | + + + Support + + +---------+ + | Name | Relationship | Address | Phone | + + +---------+ + | Vi Chatman | ECON | Unknown | | + + +---------+ + Care Team Providers + +------+ + | Care Lithopone Mill Worker Name | Role | Phone | + +------+ + | Tony Emmanuel MD | PCP | | + +------+ + Reason for Visit + + + | Reason | Comments | + + + | Lab Results | | + + + Encounter Details +--------+ + + + + | Date | Type | Department | Care Team | Description | +--------+ + + + + | 03/30/ | Telephone | Neurologic | Magy Samuels RN | Lab Results | | 2018 | | Oncology at | [address] | | | | | [facility] | [address] | | | | | [address] | [place], [place] | | | | | [facility] | [address] | | | | | Mailcode: L[address] | | | | | | Physicians [facility] | | | | | | [place], [place] | | | | | | [address] | | | | | | [phone] | | | +--------+ + + + [...] [address] | | | | | | [place] | | | | | | [address] | | | | | | [phone] | | | | | | | | +--------+---------+ + + + as of this encounter Visit Diagnoses Not on filein this encounter"
--- OUTSIDE RECORDS SUMMARY | ~2018-05-08 | XMS | Encounter Summary ---
Demographics + + + | Address | [address] | | | [place] [address] | + + + | Home Phone | | + + + | Preferred Language | Unknown | + + + | Marital Status | Single | + + + | Sabianism Affiliation | NON | + + + | Race | White | + + + | Ethnic Group | Not or | + + + Author + + + | Author | [facility] | + + + | Organization | [facility] | + + + | Address | Unknown | + + + | Phone | Unavailable | + + + Support + + +---------+ + | Name | Relationship | Address | Phone | + + +---------+ + | Vi Chatman | ECON | Unknown | | + + +---------+ + Care Team Providers + +------+ + | Care Publisher Assistant Name | Role | Phone | + +------+ + | Tony Emmanuel MD | PCP | | + +------+ + Reason for Visit + + + | Reason | Comments | + + + | Follow-up visit | | + + + Encounter Details +--------+---------+ + + + | Date | Type | Department | Care Team | Description | +--------+---------+ + + + | 03/30/ | Office | Neurologic | | 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 | | | | [facility] | | (HCC) (Primary Dx); | | | | [address] | | 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 | | | | Mailcode: [id number] | | (HCC); Encounter for | | | | [facility] | | antineoplastic | | | | [place], [place] | | chemotherapy | | | | [address] | | | | | | [phone] | | | +--------+---------+ + + + Social History + + [...] + + + as of this encounter Last Filed Vital Signs + + + + | Vital Sign | Reading | Time Taken | + + + + | Blood Pressure | 135/81 | 03/30/2018 1:09 PM PDT | + + + + | Pulse | 55 | 03/30/2018 1:09 PM PDT | + + + + | Temperature | - | - | + + + + | Respiratory Rate | - | - | + + + + | Oxygen Saturation | 98% | 03/30/2018 1:09 PM PDT | + + + + | Inhaled Oxygen | - | - | | Concentration | | | + + + + | Weight | 82.1 kg (181 lb) | 03/30/2018 1:09 PM PDT | + + + + | Height | 175.3 cm (5' 9") | 03/30/2018 1:09 PM PDT | + + + + | Body Mass Index | 26.73 | 03/30/2018 1:09 PM PDT | + + + + in this encounter Instructions Patient Instructions - Geno Veras NP - 03/30/2018 1:00 PM PDTReturn to Neuro-Oncolo gy clinic in 3 months with a new brain MRI Continue CCNU pickle solution maker at pharmacy today Continue weekly labs in this encounter Progress Notes Geno Veras NP - 03/30/2018 1:00 PM PDTFormatting of this note may be different from the original. Neuro Oncology Clinic 03/30/2018 Reason for Visit: Tumor follow up. History of Present Illness: Mr. Chatman initially presented in 07/24 with several months of seizures. He was seen in [facility] ED in [place], [place]. CT showed a R frontal mass with midline shift. MRI at [facility] showed a [id number] T2 bright mass centered in the superior R frontal lobe with extension across the b henna of the corpus callosum and nodular enhancing area superior to this region, suggestive of primary brain neoplasm. 08/04/[address] 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 09/2009 - 12/2009monthly temodar. Stopped because he was not able to afford the medication and his insurance changed. 08/2013 was hospitalized after he was found down in the bathtub after an unknown amount of t andrew. He had JOSTIN, DVT and large decub ulcer that required one year of woundvac and surgical r epair for healing. 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 11/26/16 MRI demonstrated new area of progressive nodular enhancement in the right paramedia n frontal lobe perioperative bed concerning for progressive disease . 01/14/17 - started TMZ 150mg/m2, increased to 200mg/m2 subsequent doses 08/27/17:Tumor progression on imaging; stopped monthly Temodar (total 5 courses) 09/28/17: Seen by Dr Sweet who felt any surgical resection of this lesion would be extens avelina and leave him much worse neurologically. Patient elected to proceed with radiation local ly under care of Dr Roca. 11/29/17:Completed RT 28fractions 5040 cGy 12/17/17: Started CCNU (lomistine) Oral 90mg /m2 every 6 weeks Interval History: Date of last clinic visit 01/2018 with MRI showing stable disease. Mr. Chatman has been taking CCNU q 6 weeks. Last dose 02/11/2018. No headaches, seizures, LOC, or falls. No changes in vision, hearing, balance, strength, or sensation. No n/v, diarrhea, constipation, chest pain, or shortness of breath. Review of Systems: General: Quality of Life and overall health in the past week is reported as not reported on 1 = very poor to 7 = excellent scale. A complete review of systems was performed, including the following: Constitutional Eyes Ears, nose mouth, throat Cardiovascular Respiratory Gastrointestinal Genitourinary Musculoskeletal Skin Neurologic General Health Hematologic or Lymphatic Allergic or immunologic Pertinent positives and negatives are recorded in the HPI and Interval Hx. All others negat avelina. KPS: 90 Steroids: No. Decadron Dose: 0. Hydrocortisone Dose: 0. Allergies Allergen Reactions Clindamycin Rash Keppra [Levetiracetam] Psychosis Unclear if the psychosis was truly due to the Keppra or another cause, but symptoms resol zamzam after stopping Keppra Current Outpatient Prescriptions Medication Sig Calcium Carbonate-Vit D3-Min 600 mg calcium- 400 unit oral tablet Take 1 tablet by mout h two times daily. Indications: Vitamin D Deficiency cholecalciferol (Vitamin D3) (VITAMIN D3) 2,000 unit oral capsule Take 1 capsule by lorna th once daily. Start after completion of high dose therapy Vitamin D 3. Indications: Vitami n D Deficiency dexamethasone (DECADRON) 4 mg oral tablet Take 2 tabs one hour prior to CCNU. Extra gi inga for future chemo cycles. ferrous sulfate 325 mg (65 mg iron) oral tablet Take 325 mg by mouth once daily. lomustine 100 mg oral capsule Total dose is 180 mg. Take one (100 mg) capsule by mouth once at bedtime for 1 day. Take on empty stomach with water. Please note you have two Lomu felix prescriptions. lomustine 40 mg oral capsule Total dose is 180mg. Take two (40mg) capsules by mouth on ce at bedtime for 1 day. Take on empty stomach with water. Please note you have two Lomusti ne prescriptions. LORazepam 0.5 mg oral tablet Take two tabs 60 min prior to CCNU. And may take q8h prn n ausea/vomiting. ondansetron (ZOFRAN ( HYDROCHLORIDE)) 8 mg oral tablet Take 1 tablet PO prior to CCNU . Also may take q8h prn for nausea/vomiting. ondansetron 8 mg oral tablet Take 1 tab (8 mg) 30-60 min prior to Temozolomide and ever y 8 hours as needed for nausea/vomiting. oxyCODONE, immediate release, 5 mg oral tablet Take 1-2 tablets by mouth every eight ho urs as needed for moderate pain or severe pain. PHENYTOIN ER 100 mg oral capsule TAKE FIVE (500) CAPSULES BY MOUTH ONCE DAILY ON ODD DA YS, SIX CAPSULES ( 600) ON EVEN DAYS TO PREVENT SEIZURES AFTER HEAD TRAUMA OR SURGERY prochlorperazine 10 mg oral tablet Take 1 tablet by mouth every eight hours as needed f or nausea/vomiting. Max dose: 40 mg/day pseudoephedrine (SUDOGEST) 30 mg oral tablet Take 30-60 mg by mouth every six hours as needed for congestion. senna-docusate 8.6-50 mg oral tablet Take 1 tablet by mouth twice daily as needed. TOPIRAMATE 100 mg oral tablet TAKE 2 TABLETS BY MOUTH TWICE DAILY No current facility-administered medications for this visit. Physical Exam: Vital Signs: BP 135/81 | Pulse 55 | Ht 1.753 m (5' 9") | Wt 82.1 kg (181 lb) | SpO2 98% | B MO 26.73 kg/(m^2) General: Affect: normal HEENT: Pupils PEERLA; EOMS intact all pedro; Visual pedro full; Hearing intact; Oropharynx clear swallow and gag intact. Resp: Normal resp effort Neurologic: Alert and oriented. Speech fluent Thought Process and Perception: Process: intact. Cognitive Function: Orientation: intact. Cranial Nerves: I: Not tested II Visual acuity, visual pedro Intact to confrontation III/IV/ Gaze conjugate, EOMI Intact; nystagmus absent V Sensation intact and symmetric to light touch V1-V3 Intact VII Symmetric facial motor function bilaterally Intact VIII Intact to finger rub bilaterally intact IX Palate elevates symmetrically Intact; X Normal cough; Clear articulation intact XI Shoulder shrug bilaterally Intact XII Tongue protrusion midline Intact Motor Assessment: normal strength and range of motion Cerebellar Assessment: Finger to Nose intact; Romberg negative Gait: upright and steady Sensory assessment: Light touch intact. Diagnostic tests: I have reviewed the CBC results since the last clinic visit. Mr. Chatman has not experien gayatri a drop in blood counts that has required a dosage change. Imaging: MR BRAIN WWO CONTRAST from 03/2018 revd , stable scans I,MICHELE Herrera, am functioning as a scribe for Hermelindo Ibanez MD for the assess ment discussion and plan. Assessment and Discussion: Mr. Chatman is doing well on oral CCNU chemotherapy and is without new issues. He is exp eriencing some side effects due to the CCNU; fatigue I personally reviewed the MR images and compared them with prior MR images. My impression is that patient's disease is stable disease. I reviewed the MRI and comparisons with the david duff and his family and all questions were answered. Plan: Return to Neuro-Oncology clinic in 3 months with a new brain MRI Continue CCNU 90 mg/m2 call when you pickle solution maker CCNU to discuss start date please Request lab results from 03/25/2018 I have verified with the patient the HPI, ROS, allergies and medication documented above by MICHELE Herrera. I have reviewed the scribed A & P and I agree. Hermelindo Ibanez MD [employer] [facility] [phone] in this encounter Plan of Treatment +--------+---------+ + [...] [address] | | | | | | [place], [place] | | | | | | [address] | | | | | | [phone] | | | | | | | | +--------+---------+ + + + + +--------+ + + | Name | Priori | Associated Diagnoses | Order Schedule | | | ty | | | + +--------+ + + | CBC, WITH DIFFERENTIAL | Routin | Encounter for | Expected: 03/30/2018 | | | e | antineoplastic | (Approximate), | | | | chemotherapy | Expires: 04/30/2019 | + +--------+ + + as of this encounter Visit Diagnoses + + | Diagnosis | + + | 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
--- OUTSIDE RECORDS SUMMARY | ~2018-05-08 | XMS | Encounter Summary ---
Demographics + + + | Address | [address] | | | [place] [address] | + + + | Home Phone | | + + + | Preferred Language | Unknown | + + + | Marital Status | Single | + + + | Adventism Affiliation | NON | + + + [...] Team Providers + +------+ + | Care Archives Technician Name | Role | Phone | + [...] Description | +--------+---------+ + + + | 03/04/ | Office | Neurology at | Asha Hyatt, | Localization-related | | 2018 | Visit | [facility] & | [employer]PECT[employer] [address] | epilepsy (HCC) | | | | Healing [address] | (Primary Dx); | | | | Odell Wills Mail Code: | [place], [place] | Vitamin D deficiency | | | | [facility] | [id number] | | | | | [facility] and [facility], | [phone] | | | | | 8th floor [place], | | | | | | [place] [address] | | | | | | [phone] | | | +--------+---------+ + + + [...] + + + | Blood Pressure | 128/86 | 03/04/2018 12:57 PM PDT | + + + + | Pulse | 58 | 03/04/2018 12:57 PM PDT | + + + + | Temperature | - | - | + + + + | Respiratory Rate | - | - | + + + + | Oxygen Saturation | - | - | + + + + | Inhaled Oxygen | - | - | | Concentration | | | + + + + | Weight | 79.4 kg (175 lb) | 03/04/2018 12:57 PM PDT | + + + + | Height | - | - | + + + + | Body Mass Index | 25.47 | 03/04/2018 12:57 PM PDT | + + + + in this encounter Instructions Patient Instructions - Asha Hyatt FNP - 03/04/2018 1:10 PM PDTIt was nice seeing y anthony in clinic today! If you need to get in touch with me between clinic visits, the best ways to do this are: 1. MyChart: this is is a good way to ask non-urgent questions. You can sign up at checkout. 2. . Our nursing team can answer many questions, and they consult with sara ferris on a daily basis for questions that need my input. 3. To cancel or reschedule appointments: [phone]. Please cancel or reschedule appointm ents at least 24 hours ahead of time. It's really helpful for other patients if you call, so we can get them in urgently. As a reminder from todays visit: For now, continue Dilantin as prescribed. I would advocate for a transition to Lacosamid e (Vimpat). I will review this with Dr. Miranda and let you know via [employer]. Continue Topamax 200mg twice per day. Labs today. Follow up with Dr. Miranda June 2018 Sincerely, Johanna Hyatt, Epilepsy PARTS SALVAGER If you have experienced a seizure or other type of spell that has affected your level of co nsciousness/alertness, you must refrain from driving, operating heavy machinery, climbing to heights, or swimming/taking baths unattended until you have been free of these seizures/spe lls for a period of 3 months if you live in the state of [place] and 6 months if you live in the state of [place]. You must be cleared by your physician and have a valid drive away driver's lic ense to be able to drive. Please bring a full list of current medications with you to your next appointment. The [facility]ile[facility] [place] ([facility]NW) www.epilepsynw.org offers some local resources and support groups. The National Epilepsy Foundation has additional helpful resources including self management tools at http://www.webease.org/ Additional reliable information about epilepsy can be found at the Epilepsy Foundation webs ite at www.epilepsy.com or the book "Navigating Life with Epilepsy" YOUR CHECK-IN TIME FOR YOUR NEXT VISIT IS 15 MINUTES BEFORE YOUR SCHEDULED APPOINTMENT TIME . IF YOU ARRIVE LATE, THERE IS A CHANCE I MAY NOT BE ABLE TO SEE YOU! in this encounter Progress Notes Asha Hyatt, [employer]PECTOR - 03/04/2018 1:10 PM PDTFormatting of this note may be different fr om the original. 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 Date of last visit: OV 05/19/17 Wanda Miranda MD Event description/semiology: nocturnal focal hypermotor seizures, focal motor seizures invo lving left leg, and secondarily generalized tonic clonic seizures Current AEDs: PHT 500 EOD / 600 on alternate days; TPX 200 BID Most recent labs/AED levels: CBC WNL (01/17/18) PHT TOTAL 13.7 (05/19/17) TPX 7.6 (05/19/17) Vit D not previously drawn (d/t insurance) - he is at high risk for deficiency and needs to be tested. He may require high dose Vitamin D supplementation d/t phenytoin therapy. I have used a diagnosis of Vitamin D deficiency, which is highly likely, for the ICD approval code . Plan at last visit per Dr Miranda: 1) Continue Dilantin alternate day 500 mg/600 mg po daily in AM and topiramate 200 mg BID. 2) AED levels and 25 OH vitamin D level were drawn today and results are reviewed above. Th judy levels were in good range for him. Since his PHT levels have been running in the 13-20 m cg/ml range, his seizure control has been excellent. The 25 OH Vitamin D level was not run t segundo by the lab because the ICD10 diagnoses submitted were not adequate. This is a new issue we will have to investigate. 3) I discussed some of the matchbook maker risks of phenytoin, including mild distal sensory axon al polyneuropathy, gingival hyperplasia, vitamin D deficiency, and premature osteopenia/oste oporosis. I discussed the value of maintaining a good dental hygiene program to minimize gin gival hyperplasia. He is still taking Vitamin D 2000 international units capsules daily. He was dosed with Vitamin D 50,000 international units weekly X 8 doses and then switched to 20 00 international units daily for maintenance therapy 6) Return to [facility] to see Anushka Brooks PARTS SALVAGER in 3 months and to see me again in 6 months. Interval Hx: No seizures at all No med SE per se but would like to consider transition off Dilantin and onto a safer long-t erm seizure medicine. He denies sensory changes, gingival hyperplasia. Never had Vit D testing d/t cost. I have reordered this today with an approved and appropri ate insurance code. Needs DEXA scan, I let him know I would request his PCP order and manage this. Reports ongoing headaches since resection. Taking Excedrin a few times per week, up to daily when they are flaring. He was not aware of the risk of rebound headaches Levetiracetam (Used for several months in 2008, possibly contributing to a bout of psychosi s at that time), gabapentin (used in combination with topiramate [id number], discontinued in early 2015). . He is considering being followed by an epileptologist in [place], closer to his home Brief hx (adapted from Dr Miranda's previous note): His right frontal oligodendroglioma, last biopsied and resected on 10/14/16 at [facility] by Dr Alicia Sweet because of MRI evidence of tumor recurrence. [facility] showed progression after 6 weeks of radiation treatment earlier this year. His functional status remains good. His memory, language, personality, and basic cognition remain intact, although executive function and higher order cognitive skills are somewhat co mpromised. His general health remains good. He is taking Vitamin D 2000 international units capsules once daily because he is on Dilantin. Since his surgery he has done well. He has no new focal neurological symptoms. Gait, cognit ion, coordination, strength, and emotional state seem to be at the prior baseline. He has be en living independently in his own apartment in [place] and has been functioning normally. Other than being more forgetful in recent years, he denies any apparent cognitive changes. 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 He was told not to drive until medically cleared by the ER physician treating him at that time. He parents report ehrnan t his driving skills seemed very adequate prior to surgery. He had been driving locally with out mishap for years. He and his parents both feel that he is now functioning well enough to safely return to driving. Ortiz underwent a 24 hour ambulatory EEG from 11/25 to 11/26/16. This showed frequent right f ronto-central sharp waves maximum at C4 and F4. There were also two subclinical electrograph ic seizures on the morning on 11/26 occurring at 8:40 AM and 9:24 AM, each lasting less than a minute. I questioned Ortiz and his parents. They were all together on that morning before returning to [facility] EEG that day. At the time of those electrographic seizures they were toget her eating breakfast and then back in their motel room and saw no clinical seizure activity. Current AED regimen: Phenytoin extended alternating 500 mg/600 mg Q PM and topiramate 200 m g BID AED tolerability: Good. He denies any significant dose related side effects. Energy level, cognition, balance, appetite, weight, and mood seemed to be unaffected by current regimen. AED adherence: Somewhat irregular over the 8 year course of his epilepsy with periods of se lf discontinuation several times in the past, but excellent since his March 2016 seizures. He is not missing doses at this point with a resultant improvement in seizure control. . Neurological and epilepsy hx (per Dr Miranda's previous notes): The patient has no early risk factors for epilepsy except a positive family hx of epilepsy in his brother, who also had a tumor related epilepsy secondary to an anaplastic oligodendro glioma and eventually of this tumor 11 years after the diagnosis. There is also a hx of epilepsy of unknown cause in a first cousin and the child of that first cousin. The patient was neurologically asymptomatic until the summer when his girlfriend moved in with him and began witnessing him to have apparent nocturnal complex partial seizures several dileep es per month manifested by behavioral arousal from sleep with an odd look on his face with h im exhibiting stiffening of his body with grabbing onto his arms with his hands, sometimes w ith jerking of one arm, followed by a period of restless confusion and then return to sleep. He himself was unable to recognize these events the next morning. Apparently no medical jamin luation was sought at that time and these episodes remained undiagnosed and untreated for ab out 5 months. These nocturnal seizures became more frequent and intense, culminating in a da ytime seizure witnessed by his boss at work in July 2009, apparently a complex partial s eizure which evolved to a secondarily generalized tonic clonic seizure, leading to a 911 martin l and transport to the [facility] ER, where a CT brain scan showed a mass in the right frontal lobe. He was loaded with IV fosphenytoin at that time and transported to [facility], where he was admitted to the neurosurgery service. The neurosurgery discharge summary descr ibed the following: "Ortiz Chatman is a 34 y/o male who presented with 5 months of seizure-like episodes that have been increasing in frequency and severity over the past few weeks. Events start with R arm twitching and generalize to whole body shaking and becomes unresponsive. He does endorse occasional blurry vision with his left eye. His history is significant for a brother with a naplastic oligodendroglioma with a 1P19Q deletion. CT head at OSH showed 3x3x8 cm R frontal minimally-enhancing brain mass. He was given ativan and loaded with 1g dilantin at the [facility] an acute care hospital and transferred to [facility] for further care. He received an additional 500mg dila ntin on arrival to [facility]. No seizure activity during hospital stay. A MRI which revealed a T2 bright mass centered in the superior right frontal lobe with extension across the body of t he corpus callosum and nodular enhancement superiorly concerning for primary brain neoplasm. A right frontal craniotomy for tumor resection was done on 08/04/09. Patient tolerated the p rocedure well without complications". During that hospitalization the patient was initially on phenytoin extended, but was switch ed to levetiracetam and discharged seizure free on 1000 mg BID and a tapering course of dexa methasone. He initially tolerated levetiracetam well except for developing some insomnia and irritability. Within a week he self discontinued the levetiracetam and had several more wit nessed nocturnal seizures. During that time he developed a rapidly worsening manic type psyc hosis with increasingly severe insomnia, agitation, bizarre behavior, and scientology delusion s. He was readmitted to neurosurgery on 08/25 and seen by psychiatry, who thought that his ps ychosis might be due to coming off Keppra abruptly with recurrence of seizures with potentia l contributions from steroid therapy and levetiracetam effect. Levetiracetam was restarted a t 1000 mg BID and over the course of his 3 day admission, his psychosis resolved. The pathol ogy showed a WHO grade II oligoastrocytoma and arrangements were made for him to see Dr Alex Wallace in for a neuro-oncology consultation. He was started on monthly cyclical therapy with temozolomide in October 2009 and maintained on that for the next 3 months, at which time chemotherapy was discontinued because the patient lost his medical insurance coverage and co uld not afford the cost of treatment. Dexamethasone was eventually discontinued, but then la ter restarted in 2012 and maintained chronically, possibly because of evidence of tumor recu rrence on MRI. 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 He was initially maintained on levetiracetam 2000 mg BID, but continued to manifest some in termittent manic type behaviors for the next month with periods of agitation and bizarre beh avior lasting sometimes hours to several days at a time. He was first seen by Dr Rito rowell in neurology consultation on 10/03/09, at which time he was still on levetiracetam and a recent bout of bizarre behavior had just subsided. Dr Lomas could not differentiate bet ween AED induced psychosis and intermittent post ictal psychosis. He elected to start him on gabapentin therapy, up titrated to 600 mg TID and to taper him off levetiracetam therapy. Sonia ferris did well on GBP monotherapy and remained seizure free with no further episodes of manic ty pe psychosis. He eventually moved to [place] for about a year in late 2009 and early 2010, du ring which time he remained seizure free, but developed recurrent sharp headaches. His neuro logist in [place] started him on topiramate co-therapy 100 mg BID to treat his headaches, whi ch was somewhat helpful. He continued to maintain on a TPM-GBP combination through 2015 with good tolerability during which time he remained free of witnessed seizures. He continued to be followed by Dr Wallace during this time and had interval MRI brain scans roughly every 6 months with no signs of tumor relapse until June 2013 when a scan showed some evidence of right para-falcine tumor recurrence. Dr Wallace recommended restarting Temodar therapy at that time. He began to complain of increased headache and was restarted on dexamethasone 2 mg BID at that time. Apparently he never started the Temodar as recommended. In August 2013 he was found down by his son lying in his bathtub, stuporous and confused. He apparently been lying in his tub for several days. He recalls becoming sick and has a vag ue recollection of getting in his tub, but little or no recall of the events of the next day or two. His son called 911 and he was transported to [facility] in [place] and then transferred to [facility]. He was found to have a decubitus ulcers on his back and buttocks, and m arkedly swollen left leg, later diagnosed as being due to extensive deep vein thrombosis. He was dehydrated with evidence of kidney injury from myoglobinuria. There was a leukocytosis, but no evidence of infection was found. There was no clear explanation for why he had been lying in his tub for several days. Neurology saw him, but did not think he had had seizure a ctivity. It was felt that he may have become increasingly encephalopathic due to dehydration related to his diabetes mellitus, treated with metformin and insulin. He was also diagnosed as developing a pulmonary embolism due to his DVT. He was treated with enoxaparin Sub Q, ev entually switched to coumadin, but matchbook maker anticoagulation was not continued because of th e risks of cerebral bleed with his brain tumor. He was eventually transferred to a SNF for rehab and had to undergo grafting to treat a deep decubitus on his buttocks. Repeat MRI duri ng this admission showed no evidence of tumor progression. Apparently the suspicious abnorma lity noted in the June 2013 scan had regressed. He remained on topiramate 100 mg BID and gabapentin 600 mg TID after that hospitalization, and remained seizure free. When he returned to the [facility] on 09/13/14 he report ed being seizure free, but Dr Lomas had concerns about him still having nocturnal seizur es that were not being documented. When living with his girlfriend in 2008 she witnessed parul quent nocturnal seizures with him grabbing both arms with his hands followed by confusion wh ich he was unable to recognize himself the next morning. The exam on that visit revealed him having unusual ecchymoses on both arms, possibly seizure related. When the patient returned to Dr Wallace in February 2015 there was no evidence of tumor recurrence on the interval scan a nd a decision was made to defer Temodar therapy. The MRI scan was stable on his November 2015 v isit to neuro-oncology and the dexamethasone taper was started on that visit. When Ortiz was last here to see Dr Lomas on 03/19, he reported that he had been seizure free since 2009, but had gone off his AED therapy, apparently having misconstrued something his PCP, Dr Tony Emmanuel had said. According to his parents, he had been "sickly" in January a february, feeling fatigued with diminished appetite and some weight loss. He was starting to recover when he saw Dr Lomas. His appetite had improved and he had stopped losing weight . For much of the preceding 5-6 years before that, he had been maintained on dexamethasone 2 mg BID to limit cerebral edema secondary to his tumor, resulting in iatrogenic Pearis[place]'s sy ndrome complicated by diabetes mellitus. On his 11/27/[address] Wallace, his dexamethaso ne was reduced to 2 mg daily with plans to taper and discontinue steroid therapy in the next month. Some of the "sickly" symptoms he was having during the Spring and early summer h ave been related to this transition. During the summer much of the iatrogenic Shirin's synd daylin resolved with significant weight loss and resolution of his diabetes. At the time of wy s 03/19 clinic visit, Dr Lomas instructed him on getting back on his regimen of topiramate 100 mg BID and gabapentin 600 mg TID. On 04/14/16, a few weeks after he saw Dr Lomas in clinic, Ortiz had a cluster of complex partial seizures culminating in a witnessed tonic clonic seizure in the [facility] ER in [place]. He woke up that day not feeling right and called his dad when he found h imself having lost some time and feeling confused. He dad describes him as being quite confu sed on the phone and only able to repetitively state "I want to come home". His dad was in [facility] at the time and called to 911 to have the police go check on him. When the police a rrived at his home he seemed to have recovered and was back to baseline. They did not activa te medical transport at that time. His dad arrived about an hour later and found him again t o be confused. He then had a brief witnessed seizure in which he stiffened, flexed his arms and grabbed his left arm with his right hand, after which he put his head down and went into a deeply somnolent state and was unarousable. His dad then called 911 and had him transport ed to the [facility] ER. He was awake and coherent in the ER, but then had another more se ever seizure that his dad and ER staff witnessed. He became unresponsive and got an odd grim elena on his face with blank staring. He then grabbed his arms with both hands and his body st iffened, after which he apparently went into a grand mal seizure. The post ictal somnolence cleared in 5-10 minutes with him awakening into a confusional amnesic state that cleared in 20-30 minutes. At that point he was given a loading dose of IV fosphenytoin and then started on maintenance phenytoin extended. He was asked to restart topiramate at 100 mg BID and eusebio ntually this was increased to the current 200 mg BID. The gabapentin was either discontinued or not restarted. He was observed in the ER for 8-12 hours and sent home having returned to his prior neurological baseline, maintained on a PHT-TPM combination. When Ortiz returned to see Dr Lomas on 03/19 some recent brain imaging studies raised con cern about tumor re-growth or recurrence. He was referred back to neuro-oncology and was see n by Dr Wallace on 05/28/16. A repeat MRI scan showed a new area of mass in the right mesial frontal lobe concerning for tumor growth. He was referred back to neurosurgery and re-evalu ated by Dr Sweet on 10/13/16. He underwent a craniotomy for biopsy and debulking of this t umor recurrence at [facility] on 10/14/16. The biopsy pathology showed WHO grade II oligodendrogliom a with 1p/19q co-deletions. His case was presented to tumor board with recommendations being repeat MRI to evaluate the residual bulk of the new tumor nodule with consideration for mor e aggressive treatment for a WHO grade III recurrence given the risk that this recurrence wa s more biologically aggressive. Dexamethasone was used only for post operative cerebral edema and was then rapidly tapered and discontinued. While he had no apparent complex partial or tonic clonic seizures since that cluster of sei zures in March 2016, he describes having developed some spells of "jerkiness" in his left l eg and sometimes his left arm starting in late August or early September 2016. These apparen t focal motor seizures began to occur almost daily and sometimes several times in a day. The se episodes were manifested by the onset of low amplitude involuntary irregular jerky moveme nts of mostly his distal left leg or sometimes of his left arm lasting 1-3 minutes, during w hich time he has no other symptoms and retains normal awareness and control. He could still use his left sided extremities normally, executing normal voluntary movements, such as walki ng during these episodes. He did not experience any other sensory, psychical, or cognitive s ymptoms during these spells. The jerky movements were often subtle and not very evident to o thers. These apparent focal motor seizures resolved within a few weeks of his first [facility] visit with me on 11/04/16, perhaps due to improved AED adherence and more consis tently therapeutic phenytoin levels. 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 Calcium Carbonate-Vit D3-Min 600 mg calcium- 400 [...] 40 mg oral capsule Total dose is 180 mg. Take two (40 mg) capsules by mouth once at bedtime for 1 day. Take on empty stomach with water. Please note you have two Lomus marlin prescriptions. LORazepam 0.5 mg oral tablet Take [...] needed for moderate pain or severe pain. (Patient not taking: Reported on 09/28/2017) PHENYTOIN ER 100 mg oral capsule TAKE [...] No current facility-administered medications for this visit. Psychosocial: Ortiz is now on SSD and Medicare. He lives independently in his own apartment in [place]. His parents live a few miles aware and remain supportive and involved in his life. He has a teenage son who does not live with him. His ex girlfriend and mother of this son still lives in [place]. He has an ODL, but has not been driving since his seizure relapse on March 2017. His cousin is now living with him. Examination: Healthy appearing white male of average to mildly overweight build, neatly magaly ssed and well groomed, in NAD. Vital signs: BP 128/86 | Pulse 58 | Wt 79.4 kg (175 lb) | BMI 25.47 kg/(m^2). Skin: Unremarkable. HEENT: Recent well healed bifrontal craniotomy scars. External ocular exam normal. Fundosco pic exam unremarkable. No papilledema. Mouth and pharynx normal. No lymphadenopathy. Chest - Clear to A and P. Cardiac - S1 and S2 normal with regular rhythm. No murmurs or gallops hea rd. Neurological - Alert and fully oriented. Thinking logical, coherent, and organized. Affect somewhat blunted. Speech fluent with no evidence of aphasia or dysarthria. CN II-XII intact. EOM's full without nystagmus. Visual pedro intact to confrontation. Facial movements full and symmetric. Motor - no drift, asterixis, tremor, involuntary movements, or myoclonus evid ent. Strength and tone normal in all limbs. Coordination intact on finger to nose and heel t o guzmán maneuvers. KJ's normal bilaterally. Movements are smooth, prompt, and well executed. Gait was unremarkable. Tandem walk normal. Romberg negative. DTR's 1-1.5+ and symmetrical. Neurodiagnostics: MRI brain w wo contrast (09/15/17, [facility]): IMPRESSION: There is no evidence of interval disease progression. Stable extensive residual mildly enha ncing tumor along the right cerebral hemisphere compared to a most recent scan. ADDENDUM: There is mild interval increase in the intensity of the enhancement in the medial aspect of the tumor or could be related to technical differences in between the scans or early diseas e progression. Short followup is recommended. MRI brain without and with contrast (05/13/17, [facility]) IMPRESSION: Compared to 02/10/17, stable residual mildly enhancing tumor along the right paramedian fron huong lobe without evidence of disease progression. MRI brain without and with contrast (07/01/16, [facility]): IMPRESSION: Findings highly suspicious for continued disease progression, with new enhancing foci in the right frontal lobe and right posterior parafalcine region. * numerous interim MRI studies (see reports in EPIC) MRI brain w / wo contrast (08/01/19, [facility]) IMPRESSION: T2 bright mass centered in the superior right frontal lobe with extension across the body of the corpus callosum and nodular enhancement superiorly suggestive of primary brain neoplasm. Routine EEG: Date of Test: 11/27/2009 ROUTINE EEG: This is a routine EEG in a 34-year-old man with a history of seizure disorder. Background activity in the awake state contains a posteriorly dominant and symmetrically distributed 11 Hz well formed alpha rhythm that blocks with eye opening. Some low voltage beta activity is seen in the central head regions. Hyperventilation and photic stimulation do not produce diagnostic changes in the EEG. Later in the recording the patient becomes drowsy with generalized slowing of the background. Vertex sharp waves are seen. However, a well developed and sustained stage two sleep recording is not achieved. Clinical interpretation: this is a normal awake and drowsy EEG. No epileptiform discharges or lateralized abnormalities were identified. Jacques Shelley M.D. Dept. 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 EEG Description Interictal Record: The record was obtained in awake, drowsy and sleep states. The posterior awake dominant background activity was a continuous, reactive rhythm of 10.5-11 Hz. This was mildly asymmetric with the amplitude is higher and activity appears more sharply contoured in the right hemisphere but well modulated, and attenuated with eye opening. There is also slightly higher amplitude faster frequencies across the right Fronto-central region are consistent with a breach rhythm. Symmetric diffuse frontocentral beta range activity was present. Photic stimulation results in a symmetric photic driving response. Hyperventilation results in symmetric physiologic slowing. As the patient grew drowsy, a drop out of the background rhythm occurred with vertex sharp waves and sleep spindles appearing asymmetrically over the central region with higher amplitudes noted on the right compared to Left side. Stage II sleep was evident. K-complexes, vertex waves, and sleep spindles were noted. Interictal Findings - Abnormal slow wave/Epileptiform activity: - Intermittent right fronto-central primarily theta slowing noted. - Right epileptiform discharges seen intermittently throughout the study in the right fronto-central region (F4/C4 maximal). Ictal Activity: 2 focal right fronto-central focal onset electrographic seizures (with rapi d generalization) were observed. 1) Electrographic onset at 08:40:55am on 11/26/2016, there was onset of right fronto-central delta activity that became more sharply contoured as it progressed then spread bihemispherically as the wa ve forms evolved into clear epileptiform spike/wave morphology with 2-4 Hz range activity. This mark alphonso continued until 08:41:36 on 11/26/2016 when it dissipated and was followed by post-ictal slowing. 2) Electrographic onset at 09:24:57am on 11/26/2016, there was onset of right fronto-central delta activity that became more sharply contoured as it progressed then spread bihemispherically as the wa ve forms evolved into clear epileptiform spike/wave morphology with 2-4 Hz range activity. This mark alphonso continued until 09:25:39 on 11/26/2016 when it dissipated and was followed by post-ictal slowing. Events: No clinical events were reported by patient. EKG: The single-channel EKG recording shows a normal sinus rhythm. Interpretation: This is an abnormal awake and asleep 24-hour ambulatory EEG study. The higher amplitude faster frequencies across the right fronto-central region are consistent with a breach rhythm and patient's known skull defect. The presence of intermittent focal slowing in the right Fronto-central region suggests the presence of an underlying space occupying or atrophic structural abnormality in that region. Additionally, intermittent epileptiform discharges were seen in the right fronto-central region, representing an increased risk of seizures arising from that region. 2 focal right fronto-central focal onset electrographic seizures (with rapid generalization ) were seen. Edward Redman DO, MFA [employer] Department of Neurology Impression: 1) Treatment responsive symptomatic focal epilepsy with nocturnal focal hypermotor seizures , focal motor seizures involving left leg, and secondarily generalized tonic clonic seizures , due to a right frontal oligodendroglioma, now controlled on current AED regimen of phenyto in and topiramate. Last seizure nocturnal hypermotor and tonic clonic seizure activity occur red on 04/14/16 as a cluster of complex partial seizures culminating in a tonic clonic seizur e after the patient had self discontinued his AED's a few months before and had not fully re -established therapy after a 03/19/[address] Lomas. Focal motor seizures inv olving his left leg and occasionally left arm came under control with improved adherence wit h his AED regimen after his 11/04 epilepsy clinic visit. Recent ambulatory EEG captured frequ ent interictal right frontal sharp waves and 2 subclinical electrographic seizures during th e waking state not associated with any clinical manifestation. 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 S/P initial craniotomy for bx and debulking in August 2009. Treated with temozolomide for only 3 months in 2009, discontinued due to lo ss of medical insurance. Questionable growth in 2012 which receded prompting restart of dexa methasone. More definite tumor progression noted in May 2016 leading to his most recent craniotomy for bx and debulking on 10/14/16. 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 Potential contributing factors included levetiracetam therapy, treatment with dexamethasone, and post ictal effects. This has since fully resolved. 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 A 1-2 month period of failure to thrive in January and February 2016 may have been related to coming off steroid therapy with transient iatrogenic Marion's disease. 6) Anxiety/Depression. As part of routine office visitation the patient completed NDDI-E an d NIKKI-7 forms to screen for depression and anxiety. He is not interested in initiating treat ment and we will continue to monitor this. NDDI-E Score (>15 significant): NDDI-E Everything is a struggle: 2 Nothing I do is right: 3 Feel guilty: 1 I'd be better off : 1 Frustrated: 3 Difficulty finding pleasure: 3 NDDI-E Total: 13 NIKKI-7 score (5-9 mild, 10-14 moderate, >14 severe): NIKKI Questionnaire Feeling nervous, anxious, or on edge: 1 Not being able to stop or control worryin Worrying too much about different things: 1 Having trouble relaxin Being so restless that it is hard to sit still: 1 Becoming easily annoyed or irritable: 1 Feeling afraid as if something awful might happen: 0 TOTAL SCORE (5=mild; 10=moderate; 15=severe): 6 Considerations: Consider referral to mental health or treat NDDIE > 15 NIKKI >/= 10 Consider urgent assessment Score of 3 or 4 on better off question of NDDI-E Expresses active suicidal ideation in clinic encounter Plan: 1. Medications: a) Maintenance: Continue phenytoin 500 , , , Wednesday / 600mg on , , Wed *I will discuss potential brown sition from phenytoin to an alternative agent with Dr Miranda. Options include oxcarbazepine, lacosmide, valproic acid and others. I'm reluctant to make changes given seizure-freedom, ye t undetermined tumor recurrence, and I have only just met the patient today. Continue topiramate 200mg BID c) Supplements: Vitamin D will be based on blood test results. 2. EEG: None at this time. 3. Imaging: per oncology team for MRI. Recommend DEXA scan with PCP. 4. Labs: After visit today: AED levels, CBC, CMP, Vitamin D 5. Safety: Reviewed. 6. Follow up: as scheduled June [address] Miranda I spent 35 minutes with this patient, of which greater than 50% was spent counseling the pa tient regarding their medical condition, including risks and benefits of long-term use of ph enytoin versus other seizure medications. We specifically discussed lacosamide though other options exist and may be better. We discussed seizure safety, treatment for any Vitamin D de ficiency as well as DEXA scan to evaluate any developing osteopenia or osteoporosis d/t phen ytoin therapy. Did you review any brain imaging study results, if available? (Choose "Yes" if you looked a nd no results were available for review.): Yes Did you review any EEG study results, if available? (Choose "Yes" if you looked and no resu lts were available for review.): Yes Electronically signed on 03/04/2018 by MICHELE Clarke. [facility] Epilepsy [place]onin this encounter Plan of Treatment +--------+---------+ + + + | Date | Type | Specialty | Care Team | Description | +--------+---------+ + + + | 06/30/ | Office | Neurology | | | | 2017 | Visit | | | | +--------+---------+ + + + | 07/06/ | Office | Neurology | Wanda Miranda, | | | 2017 | Visit | | [address] | | | | | | [address] | | | | | | [place], [place] | | | | | | [address] | | | | | | [phone] | | | | | | | | +--------+---------+ + + + as of this encounter Results COMPLETE METABOLIC SET (NA,K,CL,CO2,BUN,CREAT,GLUC,CA,AST,ALT,BILI TOTAL,ALK PHOS,ALB,PROT TOTAL) (03/04/2018 1:54 PM) + +---------+ + + | Component | Value | Ref Range | Performed At | + +---------+ + + | GLUCOSE, PLASMA | 78 | 70 - 99 mg/dL | [facility] | | (LAB) | | | SERVICES, CORE | + +---------+ + + | BUN, PLASMA (LAB) | 15 | 6 - 20 mg/dL | [facility] | | | | | SERVICES, CORE | + +---------+ + + | CREATININE PLASMA | 0.85 | 0.70 - 1.30 mg/dL | [facility] | | (LAB) | | | SERVICES, CORE | + +---------+ + + | EGFR - | >60 | >60 mL/min | [facility] | | CENTRAL AFRICAN | | | SERVICES, CORE | + +---------+ + + | EGFR NON | >60 | >60 mL/min | [facility] | | -CENTRAL AFRICAN | | | SERVICES, CORE | + +---------+ + + | SODIUM, PLASMA (LAB) | 143 | 136 - 145 mmol/L | [facility] | | | | | SERVICES, CORE | + +---------+ + + | POTASSIUM, PLASMA | 4.0 | 3.4 - 5.0 mmol/L | [facility] | | (LAB) | | | SERVICES, CORE | + +---------+ + + | CHLORIDE, PLASMA | 108 | 97 - 108 mmol/L | [facility] | | (LAB) | | | SERVICES, CORE | + +---------+ + + | TOTAL CO2, PLASMA | 27 | 21 - 32 mmol/L | [facility] | | (LAB) | | | SERVICES, CORE | + +---------+ + + | CALCIUM, PLASMA | 9.2 | 8.6 - 10.2 mg/dL | [facility] | | (LAB) | | | SERVICES, CORE | + +---------+ + + | CALCIUM(ALB | 9.0 | 8.6 - 10.2 mg/dL | [facility] | | CORRECTED) | | | SERVICES, CORE | + +---------+ + + | BILIRUBIN TOTAL | 0.2 (L) | 0.3 - 1.2 mg/dL | [facility] | | | | | SERVICES, CORE | + +---------+ + + | TOTAL PROTEIN, | 7.9 | 6.4 - 8.2 g/dL | [facility] | | PLASMA (LAB) | | | SERVICES, CORE | + +---------+ + + | ALBUMIN, PLASMA | 4.2 | 3.5 - 4.7 g/dL | [facility] | | (LAB) | | | SERVICES, CORE | + +---------+ + + | ALK PHOS | 148 (H) | 53 - 128 U/L | [facility] | | | | | SERVICES, CORE | + +---------+ + + | AST(SGOT) | 19 | <=41 U/L | [facility] | | | | | SERVICES, CORE | + +---------+ + + | ALT (SGPT) | 27 | <=60 U/L | [facility] | | | | | SERVICES, CORE | + +---------+ + + | ANION GAP | 8 | 4 - 11 mmol/L | [facility] | | | | | SERVICES, CORE | + +---------+ + + | ANION GAP(ALB | 7 | 4 - 11 mmol/L | [facility] | | CORRECTED) | | | SERVICES, CORE | + +---------+ + + | POTASSIUM CMNT | No Hemo | | [facility] | | | | | SERVICES, CORE | + +---------+ + + | AZIZA T CMNT | No Hemo | | [facility] | | | | | SERVICES, CORE | + +---------+ + + | AST CMNT | No Hemo | | [facility] | | | | | SERVICES, CORE | + +---------+ + + + + | Specimen | + + | Blood - Blood | + + + + + | Narrative | Performed At | + + + | GFR is estimated using the MDRD equation recommended by the | [facility] | | National Kidney Disease Education Program. Estimated GFR | LABORATORY | | Interpretive Information: <60 mL/min/1.73 sq | SERVICES, CORE | | m Chronic Kidney Disease <15 mL/min/1.73 | | | sq m Kidney Failure Estimated GFR greater | | | that 60 mL/min/1.73 sq m is of limited clinical value. The MDRD | | | equation is not valid in the following situations: - Patients under | | | 18 years of age - Severe malnutrition or obesity - Vegetarian diet | | | - Rapidly changing kidney function - Amputees, paraplegics, or other | | | muscle-wasting diseses | | + + + + + + + + | Performing | Address | City/State/Zipcode | Phone Number | | Organization | | | | + + + + + | [facility] | [address] | [place] [address] | | | SERVICES, CORE | [address] | | | + + + + + TOPIRAMATE, SERUM (03/04/2018 1:54 PM) + + + + + | Component | Value | Ref Range | Performed At | + + + + + | TOPIRAMATE, SERUM | 5.2Comment: INTERPRETIVE | 5.0 - 20.0 ug/mL | [facility] | | | INFORMATION: Topiramate | | [facility] - | | | Therapeutic | | [facility] | | | range: 5.0-20.0 | | | | | ug/mL | | | | | Toxic: Not well | | | | | established | | | | | Pharmacokinetics varies | | | | | widely, particularly | | | | | with co-medications, | | | | | age, and/or compromised | | | | | renal function. Adverse | | | | | effects may include | | | | | somnolence, fatigue, and | | | | | dizziness.Performed by | | | | | [facility] | | | | | [address], [facility],[place] | | | | | [address] | | | | | [phone]. | | | | | Anuj driscoll MD, | | | | | Lab. Director | | | + + + + + + + | Specimen | + + | Blood - Blood | + + + + + + + | Performing | Address | City/State/Zipcode | Phone Number | | Organization | | | | + + + + + | [facility] | [address] | [place], [place] | | | [facility] | | [address] | | + + + + + PHENYTOIN, FREE & TOTAL (03/04/2018 1:54 PM) + +-------+ + + | Component | Value | Ref Range | Performed At | + +-------+ + + | PHENYTOIN CONC, | 12 | 10 - 20 ug/mL | [facility] | | TOTAL | | | LAB | + +-------+ + + | % BOUND PHENYTOIN | 90.8 | 85.0 - 95.0 % | [facility] | | | | | LAB | + +-------+ + + | FREE PHENYTOIN CONC | 1.1 | 1.0 - 2.0 ug/mL | [facility] | | | | | LAB | + +-------+ + + + + | Specimen | + + | Blood - Blood | + + + + + | Narrative | Performed At | + + + | Toxic | [facility] | | Level: Total: >30 ug/mL Serious: >160 ug/mL Test | REFER[facility] | | performed by: [employer] [employer] [facility] [address], [place] | | | [address] | | | | | |Test performed by: | | |[facility] | | |[address] | | |[place] [address] | | + + + + + + + + | Performing | Address | City/State/Zipcode | Phone Number | | Organization | | | | + + + + + | [facility] | | | | + + + + + | [facility] | see below | | | + + + + + in this encounter Visit Diagnoses + + | Diagnosis | + + | Localization-related epilepsy (HCC) - Primary | + + | Localization-related (focal) (partial) epilepsy and epileptic syndromes with simple | | partial seizures, without mention of intractable epilepsy | + + | Vitamin D deficiency | + +
--- OUTSIDE RECORDS SUMMARY | ~2018-05-08 | XMS | Encounter Summary ---
Demographics + + + | Address | [address] | | | [place] [address] | + + + | Home Phone | | + + + | Preferred Language | Unknown | + + + | Marital Status | Single | + + + | Orthodoxy Affiliation | NON | + + + | Race | White | + + + | Ethnic Group | Not or | + + + Author + + + | Author | [facility] | + + + | Organization | [facility] | + + + | Address | Unknown | + + + | Phone | Unavailable | + + + Support + + +---------+ + | Name | Relationship | Address | Phone | + + +---------+ + | Vi Chatman | ECON | Unknown | | + + +---------+ + Care Team Providers + +------+ + | Care Edi Architect Name | Role | Phone | + +------+ + | Tony Emmanuel MD | PCP | | + +------+ + Reason for Visit + + + | Reason | Comments | + + + | Lab Results | requested | + + + Encounter Details +--------+ + + + + | Date | Type | Department | Care Team | Description | +--------+ + + + + | 05/04/ | Telephone | Neurologic | Magy Samuels RN | Lab Results | | 2018 | | Oncology at | [address] | (requested) | | | | [facility] | [address] | | | | | [address] | [place], [place] | | | | | [facility] | [address] | | | | | Mailcode: [id number] | | | | | | [address] | | | | | | [place], [place] | | | | | | [address] | | | | | | [phone] | | | +--------+ + + + [...] Neurology | Wanda Miranda, | | | 2018 | Visit | | [address] | | | | | | [address] | | | | | | [place], [place] | | | | | | [address] | | | | | | [phone] | | | | | | | | +--------+---------+ + + + as of this encounter Visit Diagnoses Not on filein this encounter"
--- OUTSIDE RECORDS SUMMARY | ~2018-05-08 | XMS | Encounter Summary ---
Demographics + + + | Address | [address] | | | [place] [address] | + + + | Home Phone | | + + + | Preferred Language | Unknown | + + + | Marital Status | Single | + + + | Anglican Affiliation | NON | + + + | Race | White | + + + | Ethnic Group | Not or | + + + Author + + + | Author | [facility] | + + + | Organization | [facility] | + + + | Address | Unknown | + + + | Phone | Unavailable | + + + Support + + +---------+ + | Name | Relationship | Address | Phone | + + +---------+ + | Vi Chatman | ECON | Unknown | | + + +---------+ + Care Team Providers + +------+ + | Care 2Nd Grade Teacher Name | Role | Phone | + +------+ + | Tony Emmanuel MD | PCP | | + +------+ + Encounter Details +--------+ + + + + | Date | Type | Department | Care Team | Description | +--------+ + + + + | 03/21/ | Telephone | Neurologic | Geno Veras, | | | 2018 | | Oncology at | STEAM HAMMER OPERATOR [address] | | | | | [facility] | [address] | | | | | [address] | [place], [place] | | | | | [facility] | [address] | | | | | Mailcode: [id number] | [phone] | | | | | [facility] | | | | | | [place], [place] | | | | | | [address] | | | | | | [phone] | | | +--------+ + + + [...] [address] | | | | | | [place], [place] | | | | | | [address] | | | | | | [phone] | | | | | | | | +--------+---------+ + + + as of this encounter Visit Diagnoses Not on filein this encounter"
--- OUTSIDE RECORDS SUMMARY | ~2018-05-08 | XMS | Encounter Summary ---
Demographics + + + | Address | [address] | | | [place] [address] | + + + | Home Phone | | + + + | Preferred Language | Unknown | + + + | Marital Status | Single | + + + | Zoroastrian Affiliation | NON | + + + [...] Team Providers + +------+ + | Care Air Quality Technician Name | Role | Phone | + +------+ + | Tony Emmanuel MD | PCP | | + +------+ + Encounter Details +--------+ + + + + | Date | Type | Department | Care Team | Description | +--------+ + + + + | 02/09/ | Pharmacy | Specialty Pharmacy | | | | 2017 | Visit | Services [address] | | | | [address] | | | | | | [place], [place] | | | | | | [address] | | | | | | [phone] | | | +--------+ + + + [address] | | | | | | [place], [place] | | | | | | [address] | | | | | | [phone] | | | | | | | | +--------+---------+ + + + as of this encounter Visit Diagnoses Not on filein this encounter"
--- OUTSIDE RECORDS SUMMARY | ~2018-05-08 | XMS | Encounter Summary ---
Demographics + + + | Address | [address] | | | [place] [address] | + + + | Home Phone | | + + + | Preferred Language | Unknown | + + + | Marital Status | Single | + + + | Anabaptist Affiliation | NON | + + + | Race | White | + + + | Ethnic Group | Not or | + + + Author + + + | Author | [facility] | + + + | Organization | [facility] | + + + | Address | Unknown | + + + | Phone | Unavailable | + + + Support + + +---------+ + | Name | Relationship | Address | Phone | + + +---------+ + | Vi Chatman | ECON | Unknown | | + + +---------+ + Care Team Providers + +------+ + | Care Career Technical Supervisor Name | Role | Phone | [...] | +--------+ + + + + | 03/04/ | Telephone | Neurologic | Magy Samuels RN | Lab Results | | 2018 | | Oncology at | [address] | | | | | [facility] | [address] | | | | | [address] | [place], [place] | | | | | [facility] | [address] | | | | | Mailcode: [id number] | | | | | | [facility] | | | | | | [place], [place] | | | | | | [address] | | | | | | [phone] | | | +--------+ + + + [address] | | | | | | [place] | | | | | | [address] | | | | | | [phone] | | | | | | | | +--------+---------+ + + + as of this encounter Visit Diagnoses Not on filein this encounter"
--- OUTSIDE RECORDS SUMMARY | ~2018-05-08 | XMS | Encounter Summary ---
Demographics + + + | Address | [address] | | | [place] [address] | + + + | Home Phone | | + + + | Preferred Language | Unknown | + + + | Marital Status | Single | + + + | Christian Affiliation | NON | + + + [...] Team Providers + +------+ + | Care Cash Poster Name | Role | Phone | + +------+ + | Tony Emmanuel MD | PCP | | + +------+ + Encounter Details +--------+ + + + + | Date | Type | Department | Care Team | Description | +--------+ + + + + | 02/09/ | Abstract | Neurologic | Lavell Wallace, | | | 2018 | | Oncology at | MD Halima Ya | | | | | Physicians Yolanda | [address] | | | | | [address] | [place], [place] | | | | | [facility] | [address] | | | | | Mailcode: [id number] | [phone] | | | | | Physicians Yolanda | | | | | | [place], [place] | | | | | | [address] | | | | | | [phone] | | | +--------+ + + + [...] Rd | | | | | | [place], [place] | | | | | | [address] | | | | | | [phone] | | | | | | | | +--------+---------+ + + + as of this encounter Procedures + +--------+ + + + | Procedure Name | Priori | Date/Time | Associated Diagnosis | Comments | | | ty | | | | + +--------+ + + + | CBC, WITH | Routin | 01/17/2018 | | Results for this | | DIFFERENTIAL | e | 12:00 AM | | procedure are in the | | | | PDT | | results section. | + +--------+ + + + in this encounter Results NIXON, WITH DIFFERENTIAL (01/17/2018) + +-------+ + + | Component | Value | Ref Range | Performed At | + +-------+ + + | WHITE CELL COUNT | 5.3 | K/cu mm | [facility] | | | | | [place] | + +-------+ + + | RED CELL COUNT | 4.02 | M/cu mm | [facility] | | | [facility] | + +-------+ + + | HEMOGLOBIN | 13.7 | 13.5 - 17.5 g/dL | [facility] | | | [facility] | + +-------+ + + | HEMATOCRIT | 41.9 | % | [facility] | | | [facility] | + +-------+ + + | MCV | 104.1 | fL | [facility] | | | [facility] | + +-------+ + + | MCH | 34 | pg | [facility] | | | [facility] | + +-------+ + + | MCHC | 33 | g/dL | [facility] | | | [facility] | + +-------+ + + | PLATELET COUNT | 132 | K/cu mm | [facility] | | | [facility] | + +-------+ + + | NEUTROPHIL % | 62.7 | % | [facility] | | | [facility] | + +-------+ + + | LYMPHOCYTE % | 28.5 | % | [facility] | | | [facility] | + +-------+ + + | MONOCYTE % | 6.3 | % | [facility] | | | [facility] | + +-------+ + + | EOS % | 1.7 | % | [facility] | | | | | [facility] | + +-------+ + + | BASO % | 0.8 | % | [facility] | [...] + + | [facility] - | [address] | [place] | [phone] | | [place] | | | | + + + + + in this encounter Visit Diagnoses Not on filein this encounter"
--- OUTSIDE RECORDS SUMMARY | ~2018-05-08 | XMS | Encounter Summary ---
Demographics + + + | Address | [address] | | | [place] [address] | + + + | Home Phone | | + + + | Preferred Language | Unknown | + + + | Marital Status | Single | + + + | Jain Affiliation | NON | + + + | Race | White | + + + | Ethnic Group | Not or | + + + Author + + + | Author | [facility] | + + + | Organization | [facility] | + + + | Address | Unknown | + + + | Phone | Unavailable | + + + Support + + +---------+ + | Name | Relationship | Address | Phone | + + +---------+ + | Vi Chatman | ECON | Unknown | | + + +---------+ + Care Team Providers + +------+ + | Care Weapons Engineer Name | Role | Phone | + +------+ + | Tony Emmanuel MD | PCP | | + +------+ + Encounter Details +--------+ + + + + | Date | Type | Department | Care Team | Description | +--------+ + + + + | 04/04/ | Abstract | Neurologic | Lavell Wallace, | | | 2018 | | Oncology at | MD Halima Ya | | | | | Physicians Yolanda | [address] | | | | | [address] | [place], [place] | | | | | [facility] | [address] | | | | | Mailcode: [id number] | [phone] | | | | | Physicians Yolanda | | | | | | [place], [place] | | | | | | [address] | | | | | | [phone] | | | +--------+ + + + [...] Rd | | | | | | [place], [place] | | | | | | [address] | | | | | | [phone] | | | | | | | | +--------+---------+ + + + as of this encounter Procedures + +--------+ + + + | Procedure Name | Priori | Date/Time | Associated Diagnosis | Comments | | | ty | | | | + +--------+ + + + | CBC, WITH | Routin | 03/25/2018 | | Results for this | | DIFFERENTIAL | e | 12:00 AM | | procedure are in the | | | | PDT | | results section. | + +--------+ + + + in this encounter Results NIXON, WITH DIFFERENTIAL (03/25/2018) + +-------+ + + | Component | Value | Ref Range | Performed At | + +-------+ + + | WHITE CELL COUNT | 5.4 | K/cu mm | [facility] | | | [facility] | + +-------+ + + | RED CELL COUNT | 3.99 | M/cu mm | [facility] | | | | [facility] | + +-------+ + + | HEMOGLOBIN | 14 | 13.5 - 17.5 g/dL | [facility] | | | | | [facility] | + +-------+ + + | HEMATOCRIT | 40.6 | % | [facility] | | | [facility] | + +-------+ + + | MCV | 101.7 | fL | [facility] | | | [facility] | + +-------+ + + | MCH | 35 | pg | [facility] | | | [facility] | + +-------+ + + | MCHC | 34 | g/dL | [facility] | | | | [facility] | + +-------+ + + | PLATELET COUNT | 131 | K/cu mm | [facility] | | | | [facility] | + +-------+ + + | NEUTROPHIL % | 64.2 | % | [facility] | | | [facility] | + +-------+ + + | LYMPHOCYTE % | 26.9 | % | [facility] | | | [facility] | + +-------+ + + | MONOCYTE % | 4.9 | % | [facility] | | | | [facility] | + +-------+ + + | EOS % | 3 | % | [facility] | | | | | [place] | + +-------+ + + | BASO % | 1 | % | [facility] | | | | | [facility] | + +-------+ + + | RDW | 14.7 | % | [facility] | [address] | [place] | [phone] | | [place] | | | | + + + + + in this encounter Visit Diagnoses Not on filein this encounter"
--- OUTSIDE RECORDS SUMMARY | ~2018-05-08 | XMS | Clinical Summary ---
Demographics + + + | Address | [address] | | | [place] [address] | + + + | Home Phone | | + + + | Preferred Language | Unknown | + + + | Marital Status | Single | + + + | Church Affiliation | 1001 | + + + | Race | Unknown | + + + | Ethnic Group | Unknown | + + + Author + + + | Author | [facility] | | | and Kashana | + + + | Organization | [facility] | | | and Kashana [...] Team Providers + +------+ + | Care Sign Letterer Name | Role | Phone | + [...] | | 2017 | Encounter | | SENIOR MARKETING DATA ANALYST | (HCC) | +--------+ + + + [...] | | 2018 | Orders | | SENIOR MARKETING DATA ANALYST | (HCC) | +--------+ + + + [...] [place] | | | | | | [address] | | | | | | | [...] | | (HCC) PLEASE PUSH IMAGES TO [facility]: COMPARISON: MRI dated | | [...] (HCC) | | PLEASE PUSH IMAGES TO [facility] [place]: | | | | COMPARISON: [...] +--------+ +---------+ | MEDICARE | MEDICA | [id number] | Medica | [phone] | | [...] | 1975 | [phone] | [place] [address] | | | raffaele | | | 0536 | | + +--------+ +--------+ + +"
--- OUTSIDE RECORDS SUMMARY | ~2018-05-08 | XMS | Encounter Summary ---
Demographics + + + | Address | [address] | | | [place] [address] | + + + | Home Phone | | + + + | Preferred Language | Unknown | + + + | Marital Status | Single | + + + | Hoahaoism Affiliation | 1001 | + + + | Race | Unknown | + + + | Ethnic Group | Unknown | + + + Author + + + | Author | [facility] | | | and Kashana | + + + | Organization | [facility] | | | and Kashana [...] Team Providers + +------+ + | Care Clinician Oncology Name | Role | Phone | + [...] | | MICHELE Lora | [address] | | | | | Oligoastrocy | [address] | [place], | | | | | radha (HCC) | [place] | [place] | | | | | Procedures | [address] | [address] | | | | | MRI Brain w | [place], [place] | Phone: | | | | | wo Contrast | [address] | [phone] | | | | | | Phone: | Fax: | | | | | | [phone] | [phone] | | | | | | Fax: | | | | | | | [phone] | | +--------+--------+ + + + + Encounter Details +--------+ + + + + | Date | Type | Department | Care Team | Description | +--------+ + + + + | 03/21/ | 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, | 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 | MED CTR XRAY [address] | INCOME AUDITOR [address] [facility] | ([facility]) | | | | [address] [place] | Jose Wendi | | | | | [place] [address] | [place], [place] | | | | | [phone] | [address] | | | | | | [phone] | | | | | | | [...] | | 2017 | | | MD Deepti Vidal | | | | | | [place], [place] | | | | | | [address] | | | | | | | | +--------+ + + + + as of this encounter Results MRI Brain w wo [...] | | (HCC) PLEASE PUSH IMAGES TO [facility] [place]: COMPARISON: MRI dated | | | 01/20/2018 [...] (HCC) | | PLEASE PUSH IMAGES TO [facility] [place]: | | | | COMPARISON: [...] + + | Oligoastrocytoma (HCC) | + +"
--- OUTSIDE RECORDS SUMMARY | ~2018-05-08 | XMS | Encounter Summary ---
Demographics + + + | Address | [address] | | | [place] [address] | + + + | Home Phone | | + + + | Preferred Language | Unknown | + + + | Marital Status | Single | + + + | Faith Affiliation | NON | + + + | Race | White | + + + | Ethnic Group | Not or | + + + Author + + + | Author | [facility] | + + + | Organization | [facility] | + + + | Address | Unknown | + + + | Phone | Unavailable | + + + Support + + +---------+ + | Name | Relationship | Address | Phone | + + +---------+ + | Vi Chatman | ECON | Unknown | | + + +---------+ + Care Team Providers + +------+ + | Care Scissors Sharpener Name | Role | Phone | + +------+ + | Tony Emmanuel MD | PCP | | + +------+ + Encounter Details +--------+ + + + + | Date | Type | Department | Care Team | Description | +--------+ + + + + | 02/07/ | Telephone | Neurologic | Geno Veras, | | | 2018 | | Oncology at | ACCESS SERVICES REPRESENTATIVE [address] | | | | | Physicians Yolanda | [address] | | | | | [address] | [place], [place] | | | | | [facility] | [address] | | | | | Mailcode: [id number] | [phone] | | | | | Physicians [address]on | | | | | | [place], [place] | | | | | | [address] | | | | | | [phone] | | | +--------+ + + + [...] Rd | | | | | | [place], [place] | | | | | | [address] | | | | | | [phone] | | | | | | | | +--------+---------+ + + + as of this encounter Visit Diagnoses Not on filein this encounter"
--- OUTSIDE RECORDS SUMMARY | ~2018-05-08 | XMS | Encounter Summary ---
Demographics + + + | Address | [address] | | | [place] [address] | + + + | Home Phone | | + + + | Preferred Language | Unknown | + + + | Marital Status | Single | + + + | Gnosticist Affiliation | NON | + + + [...] Team Providers + +------+ + | Care Elementary School Counselor Name | Role | Phone | + +------+ + | Tony Emmanuel MD | PCP | | + +------+ + Encounter Details +--------+ + + + + | Date | Type | Department | Care Team | Description | +--------+ + + + + | 02/07/ | Pharmacy | Specialty Pharmacy | | | | 2017 | Visit | Services [address] | | | | | | [address] | | | | | | [place], [place] | | | | | | [address] | | | | | | [phone] | | | +--------+ + + + [...] Rd | | | | | | [place], [place] | | | | | | [address] | | | | | | [phone] | | | | | | | | +--------+---------+ + + + as of this encounter Visit Diagnoses Not on filein this encounter"
--- OUTSIDE RECORDS SUMMARY | ~2018-05-08 | XMS | Encounter Summary ---
Demographics + + + | Address | [address] | | | [place] [address] | + + + | Home Phone | | + + + | Preferred Language | Unknown | + + + | Marital Status | Single | + + + | Methodist Affiliation | 1001 | + + + | Race | Unknown | + + + | Ethnic Group | Unknown | + + + Author + + + | Author | [facility] | | | and Kashana | + + + | Organization | [facility] | | | and Kashana [...] Team Providers + +------+ + | Care Health Information Assistant Name | Role | Phone | [...] | | MICHELE Lora | [address] | | | | | Oligoastrocy | [address] | [place], | | | | | radha (HCC) | [place] | [place] | | | | | Procedures | [address] | [address] | | | | | MRI Brain w | [place], [place] | Phone: | | | | | wo Contrast | [address] | [phone] | | | | | | Phone: | Fax: | | | | | | [phone] | [phone] | | | | | | Fax: | | | | | | | [phone] | | +--------+--------+ + + + + Encounter Details +--------+ + + + + | Date | Type | Department | Care Team | Description | +--------+ + + + + | 03/21/ | 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
--- OUTSIDE RECORDS SUMMARY | ~2018-05-08 | XMS | Encounter Summary ---
Demographics + + + | Address | [address] | | | [place] [address] | + + + | Home Phone | | + + + | Preferred Language | Unknown | + + + | Marital Status | Single | + + + | Methodist Affiliation | NON | + + + [...] Team Providers + +------+ + | Care Manager Relocation Name | Role | Phone | + +------+ + | Tony Emmanuel MD | PCP | | + +------+ + Encounter Details +--------+ + + + + | Date | Type | Department | Care Team | Description | +--------+ + + + + | 03/16/ | Abstract | Neurologic | Lavell Wallace, | | | 2018 | | Oncology at | MD Halima Ya | | | | | Physicians Yolanda | [address] | | | | | [address] | [place], [place] | | | | | [facility] | [address] | | | | | Mailcode: L603 | [phone] | | | | | Physicians Yolanda | | | | | | [place], [place] | | | | | | [address] | | | | | | [phone] | | | +--------+ + + + [...] Rd | | | | | | [place], [place] | | | | | | [address] | | | | | | [phone] | | | | | | | | +--------+---------+ + + + as of this encounter Procedures + +--------+ + + + | Procedure Name | Priori | Date/Time | Associated Diagnosis | Comments | | | ty | | | | + +--------+ + + + | COMPLETE METABOLIC | Routin | 03/11/2018 | | Results for this | | [...] COMPLETE METABOLIC SET (NA,K,CL,CO2,BUN,CREAT,GLUC,CA,AST,ALT,BILI TOTAL,ALK PHOS,ALB,PROT TOTAL) (03/11/2018) + +-------+ + + | Component | Value | Ref Range | Performed At | + +-------+ + + | GLUCOSE, PLASMA | 85 | 65 - 110 mg/dL | [facility] | | (LAB) | | | [facility] | + +-------+ + + | BUN, PLASMA (LAB) | 14 | mg/dL | [facility] | | | | | [facility] | + +-------+ + + | CREATININE PLASMA | 0.9 | mg/dL | [facility] | | (LAB) | | | [facility] | + +-------+ + + | TOTAL PROTEIN, | 7 | g/dL | [facility] | | PLASMA (LAB) | | | [place] | + +-------+ + + | ALBUMIN, PLASMA | 4.6 | g/dL | [facility] | | (LAB) | | | [place] | + +-------+ + + | CALCIUM, PLASMA | 9.6 | mg/dL | [facility] | | (LAB) | | | [facility] | + +-------+ + + | BILIRUBIN TOTAL | 0.3 | Transcutaneous | [facility] - | | | | Bilirubinometer | [facility] | + +-------+ + + | ALK PHOS | 143 | U/L | [facility] | | | | | [facility] | + +-------+ + + | AST(SGOT) | 18 | U/L | [facility] | | | | | [place] | + +-------+ + + | SODIUM, PLASMA (LAB) | 142 | mmol/L | [facility] | | | | | [place] | + +-------+ + + | POTASSIUM, PLASMA | 4 | mmol/L | [facility] | | (LAB) | | | [facility] | + +-------+ + + | CHLORIDE, PLASMA | 108 | mmol/L | [facility] | | (LAB) | | | [facility] | + +-------+ + + | TOTAL CO2, PLASMA | 20 | mmol/L | [facility] | | (LAB) | | | [place] | + +-------+ + + | ALT (SGPT) | 22 | U/L | [facility] - | | | | | [place] | + +-------+ + + + + | Specimen | + + | Blood - Blood | + + + + + + + | Performing | Address | City/State/Zipcode | Phone Number | | Organization | | | | + + + + + | [facility] | [address] | [place] | [phone] | | [place] | | | | + + + + + in this encounter Visit Diagnoses Not on filein this encounter"
--- OUTSIDE RECORDS SUMMARY | ~2018-05-08 | XMS | Encounter Summary ---
Demographics + + + | Address | [address] | | | [place] [address] | + + + | Home Phone | | + + + | Preferred Language | Unknown | + + + | Marital Status | Single | + + + | Baptism Affiliation | 1001 | + + + | Race | Unknown | + + + | Ethnic Group | Unknown | + + + Author + + + | Author | [facility] | | | and Kashana | + + + | Organization | [facility] | | | and Kashana | [...] Team Providers + +------+ + | Care It Admin Name | Role | Phone | + [...] | | MICHELE Lora | [address] | | | | | Oligoastrocy | [address] | [place], | | | | | radha (HCC) | [place] | [place] | | | | | Procedures | [address] | [address] | | | | | MRI Brain w | [place], [place] | Phone: | | | | | wo Contrast | [address] | [phone] | | | | | | Phone: | Fax: | | | | | | [phone] | [phone] | | | | | | Fax: | | | | | | | [phone] | | +--------+--------+ + + + + [...] | | | | | | Geno ELECTRICAL MANUFACTURING ENGINEER | [address] | | | | | Oligoastrocy | [address] | [place], | | | | | radha (HCC) | [address] | [place] | | | | | Procedures | [address] | [address] | | | | | MRI Brain w | [place], [place] | Phone: | | | | | wo Contrast | [address] | [phone] | | | | | | Phone: | Fax: | | | | | | [phone] | [phone] | | | | | | Fax: | | | | | | | [phone] | | +--------+--------+ + + + + [...] | | MICHELE Lora | [address] | | | | | Oligoastrocy | [address] | [place], | | | | | radha (HCC) | [address] | [place] | | | | | Procedures | [address] | [address] | | | | | MRI Brain w | [place], [place] | Phone: | | | | | wo Contrast | [address] | [phone] | | | | | | Phone: | Fax: | | | | | | [phone] | [phone] | | | | | | Fax: | | | | | | | [phone] | | +--------+--------+ + + + + Encounter Details +--------+ + + + + | Date | Type | Department | Care Team | Description | +--------+ + + + + | 03/22/ | [facility] | [facility] | Geno Veras, | Oligoastrocytoma | | 2018 | Encounter | MED CTR MRI [address] | ELECTRICAL MANUFACTURING ENGINEER [address] [facility] | ([facility]) | | | | [address] [place], | [facility] | | | | | [place] [address] | [place], [place] | | | | | [phone] | [address] | | | | | | [phone] | | | | | | | [...] | | | | [address] [place] | | | | | | [address] [...] | | (HCC) PLEASE PUSH IMAGES TO [facility]: COMPARISON: MRI dated | | [...] | | PLEASE PUSH IMAGES TO [facility] [place]: | | | | COMPARISON: [...]
--- OUTSIDE RECORDS SUMMARY | ~2018-05-08 | XMS | Clinical Summary ---
Demographics + + + | Address | [address] | | | [place] [address] | + + + | Home Phone | | + + + | Preferred Language | Unknown | + + + | Marital Status | Single | + + + | Congregation Affiliation | NON | + + + | Race | White | + + + | Ethnic Group | Not or | + + + Author + + + | Author | [facility] | + + + | Organization | [facility] | + + + | Address | Unknown | + + + | Phone | Unavailable | + + + Support + + +---------+ + | Name | Relationship | Address | Phone | + + +---------+ + | Vi Chatman | ECON | Unknown | | + + +---------+ + Care Team Providers + +------+ + | Care Chronometer Adjuster Name | Role | Phone | + +------+ + | Tony Emmanuel MD | PP | | + +------+ + Source Comments JAYRO is fully live on both [facility] Ambulatory and [facility] InPatient.[facility] Allergies + + + + + + | Active Allergy | Reactions | Severity | Noted | Comments | | | | | Date | | + + + + + + | Clindamycin | Rash | | 09/13/19 | | | | | | 15 | | + + + + + + | Levetiracetam | Psychosis | | 09/06/19 | Unclear if the [...] + + + Current Medications + + +---------+---------+------+------+-------+ | Prescription | Sig. | Disp. | Refills | Star | End | Statu | | | | | | t | Date | s | | | | | | Date | | | + + +---------+---------+------+------+-------+ | ferrous sulfate | Take 325 mg by mouth | | | | | Activ | | 325 mg (65 mg iron) | once daily. | | | | | e | | oral tablet | | | | | | | + + +---------+---------+------+------+-------+ | pseudoephedrine | Take 30-60 mg by | | | | | Activ | | (SUDOGEST) 30 mg | mouth every six | | | | | e | | oral tablet | hours as needed for | | | | | | | | congestion. | | | | | | + + +---------+---------+------+------+-------+ | senna-docusate | Take 1 tablet by | 60 | 0 | 03/0 | | Activ | | 8.6-50 mg oral | mouth twice daily as | tablet | | 4/20 | | e | | tablet | needed. | | | 17 | | | + + +---------+---------+------+------+-------+ | oxyCODONE, | Take 1-2 tablets by | 40 | 0 | 03/2 | | Activ | | immediate release, 5 | mouth every eight | tablet | | 2/20 | | e | | mg oral tablet | hours as needed for | | | 17 | | | | | moderate pain or | | | | | | | | severe pain. | | | | | | + + +---------+---------+------+------+-------+ | ondansetron 8 mg | Take 1 tab (8 mg) | 30 | 5 | 04/1 | | Activ | | oral | 30-60 min prior to | tablet | | 3/20 | | e | | tabletIndications: | Temozolomide and | | | 17 | | | | Mixed | every 8 hours as | | | | | | | oligoastrocytoma | needed for | | | | | | | ([facility]) | nausea/vomiting. | | | | | | + + +---------+---------+------+------+-------+ | prochlorperazine | Take 1 tablet by | 30 | 5 | 04/1 | | Activ | | 10 mg oral | mouth every eight | tablet | | 3/20 | | e | | tabletIndications: | hours as needed for | | | 17 | | | | Mixed | nausea/vomiting. Max | | | | | | | oligoastrocytoma | dose: 40 mg/day | | | | | | | ([facility]) | | | | | | | + + +---------+---------+------+------+-------+ | Calcium | Take 1 tablet by | 60 | 2 | 04/1 | | Activ | | Carbonate-Vit D3-Min | mouth two times | tablet | | 8/20 | | e | | 600 mg calcium- 400 | daily. Indications: | | | 17 | | | | unit oral | Vitamin D Deficiency | | | | | | | tabletIndications: | | | | | | | | Vitamin D Deficiency | | | | | | | + + +---------+---------+------+------+-------+ | cholecalciferol | Take 1 capsule by | | | 06/2 | | Activ | | (Vitamin D3) | mouth once daily. | | | 05/05 | | e | | (VITAMIN D3) 2,000 | Start after | | | 17 | | | | unit oral | completion of high | | | | | | | capsuleIndications: | dose therapy Vitamin | | | | | | | Vitamin D Deficiency | D 3. Indications: | | | | | | | | Vitamin D Deficiency | | | | | | + + +---------+---------+------+------+-------+ | LORazepam 0.5 mg | Take two tabs 60 min | 20 | 0 | 11/14 | | Activ | | oral tablet | prior to CCNU. And | tablet | | 04/04 | | e | | | may take q8h prn | | | 18 | | | | | nausea/vomiting. | | | | | | + + +---------+---------+------+------+-------+ | dexamethasone | Take 2 tabs one hour | 30 | 2 | / | | Activ | | (DECADRON) 4 mg oral | prior to CCNU. | tablet | | 820 | | e | | tablet | Extra given for | | | 18 | | | | | future chemo cycles. | | | | | | + + +---------+---------+------+------+-------+ | ondansetron | Take 1 tablet PO | 30 | 2 | 11/14 | | Activ | | (ZOFRAN ( | prior to CCNU. Also | tablet | | 04/04 | | e | | HYDROCHLORIDE)) 8 mg | may take q8h prn for | | | 18 | | | | oral tablet | nausea/vomiting. | | | | | | + + +---------+---------+------+------+-------+ | TOPIRAMATE 100 mg | TAKE 2 TABLETS BY | 60 | 5 | 01/14 | | Activ | | oral tablet | MOUTH TWICE DAILY | tablet | | 09/04 | | e | | | | | | 18 | | | + + +---------+---------+------+------+-------+ | PHENYTOIN ER 100 | TAKE FIVE (500) | 165 | 5 | 02/13 | | Activ | | mg oral capsule | CAPSULES BY MOUTH | capsule | | 03/04 | | e | | | ONCE DAILY ON ODD | | | 18 | | | | | DAYS, SIX CAPSULES ( | | | | | | | | 600) ON EVEN DAYS | | | | | | | | TO PREVENT SEIZURES | | | | | | | | AFTER HEAD TRAUMA OR | | | | | | | | SURGERY | | | | | | + + +---------+---------+------+------+-------+ | lomustine 100 mg | Total dose is 180 | 1 | 0 | 08/0 | | Activ | | oral capsule | mg. Take one (100 | capsule | | 2/20 | | e | | | mg) capsule by mouth | | | 18 | | | | | once at bedtime for | | | | | | | | 1 day. Take on | | | | | | | | empty stomach with | | | | | | | | water. Please note | | | | | | | | you have two | | | | | | | | Lomustine | | | | | | | | prescriptions. | | | | | | + + +---------+---------+------+------+-------+ | lomustine 40 mg | Total dose is 180mg. | 2 | 0 | 08/0 | | Activ | | oral capsule | Take two (40mg) | capsule | | 2/20 | | e | | | capsules by mouth | | | 18 | | | | | once at bedtime for | | | | | | | | 1 day. Take on empty | | | | | | | | stomach with water. | | | | | | | | Please note you | | | | | | | | have two Lomustine | | | | | | | | prescriptions. | | | | | | + + +---------+---------+------+------+-------+ Active Problems + + + | Problem | Noted Date | + + + | At risk for electrolyte imbalance | 10/14/2016 | + + + + + | Last Assessment & Plan: -MAC electrolyte protocol | + + + + + | At risk for constipation | 10/14/2016 | + + + + + | Last Assessment & Plan: -MAC bowel protocol | + + + + + | Brain tumor (HCC) | 10/14/2016 | + + + + + | Overview: Initial presentation in July 2009 with several | | months of seizures (left arm twitching that occasionally | | generalized), found to have a right frontal mass with midline | | shift. 08/04/09: resection by Dr. 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 Stopped because he was unable to | | afford medication and insurance change August 2013: | | hospitalization after he was found down in a bathtub for unknown | | amount of time, complicated by JOSTIN, DVT, and large decubitus | | ulcer requiring 1 year of wound vac and surgical repair for | | healing March 2016: GTC provoked after medication | | non-compliance, problem with shortage of dilantin per report | | May 28 2016: MRI showing area of concern to the medial part | | of the right frontal lobe, concerning for progression Family | | history significant for brother who had seizures associated with | | a right frontal oligodendroglioma; passing away several years | | after resection. 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 pending pathology | | | + + + + + | DVT of LEFT LOWER extremity (deep venous thrombosis) | 09/11/2013 | + + + | Steroid-induced diabetes mellitus (HCC) | 09/09/2013 | + + + + + | Overview: -A1c 6.7% on 10/13/16 | | Last Assessment & Plan: - not requiring any insulin coverage | | - on decadron wean and tolerating diet, will discontinue ISS | + + + + + | Decubitus ulcer | 09/05/2013 | + + + | Leukocytosis | 09/05/2013 | + + + | Hypovolemia | 09/05/2013 | + + + | Headache | 09/05/2013 | + + + + + | Overview: -Arose 02/2010 while he was living in [place] | | -Topomax was started at that time | | -Ibuprofen for break-through headaches | | ICD10 | + + + + + | Chronic fatigue | 04/07/2012 | + + + | Encounter for antineoplastic chemotherapy | 10/28/2009 | + + + | 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 Lomas, see | | detailed noted from 09/13/2014-seizures started in 2008, | | associated with tumor-initially treated with keppra but concern | | for psychosis and this was discontinued.-last seizure activity in | | 03/2016 associated with medication non-compliance, reported to | | have dilantin shortage-continue home phenytoin 500 mg vs 600 mg | | every other day and topiramate 200 mg BID VERIFIED | + + Resolved Problems + + + + | Problem | Noted | Resolved | | | Date | Date | + + + + | Pulmonary embolism ([facility]) | 09/11/19 | | | | 14 | 7 | + + + + | Hypernatremia | 09/11/19 | | | | 14 | 7 | + + + + | JOSTIN (acute kidney injury) ([facility]) | 09/05/19 | | | | 14 | 7 | + + + + | Altered mental state | 09/05/19 | | | | 14 | 7 | + + + + | Hypothermia | 09/05/19 | | | | 14 | 7 | + + + + | Chemotherapy induced nausea and vomiting | 07/18/20 | | | | 13 | 7 | + + + + | Hypertension | 09/16/19 | | | | 10 | 7 | + + + + Encounters +--------+ + + + + | Date | Type | Specialty | Care Team | Description | +--------+ + + + + | 05/04/ | Telephone | | Magy Samuels RN | Lab Results | | 2017 | | | | (requested) | +--------+ + + + + | 05/02/ | Telephone | | Angy Quintero | | 2017 | | | NICOLASA Hammer | | +--------+ + + + + | 04/19/ | Abstract | | Lavell Wallace, | | | 2017 | | | MD | | +--------+ + + + + | 04/19/ | Abstract | | Lavell Wallace, | | | 2017 | | | MD | | +--------+ + + + + | 04/14/ | Telephone | | Magy Samuels RN | Lab Results | | 2018 | | | | | +--------+ + + + + | 04/04/ | Abstract | | Lavell Wallace, | | | 2017 | | | MD | | +--------+ + + + + | 03/31/ | Telephone | | Magy Samuels RN | Chemotherapy Cycle | | 2017 | | | | | +--------+ + + + + | 03/30/ | Office | | | Oligodendroglioma of | | 2018 | Visit | | | both frontal lobes | | | | | | (HCC) (Primary Dx); | | | | | | Mixed | | | | | | oligoastrocytoma | | | | | | (HCC); Encounter for | | | | | | antineoplastic | | | | | | chemotherapy | +--------+ + + + + | 03/30/ | Telephone | | Magy Samuels RN | Lab Results | | 2017 | | | | | +--------+ + + + + | 03/30/ | Pharmacy | | | | | 2017 | Visit | | | | +--------+ + + + + | 03/30/ | Pharmacy | | | | | 2017 | Visit | | | | +--------+ + + + + | 03/29/ | Pharmacy | | | | | 2017 | Visit | | | | +--------+ + + + + | 03/25/ | Telephone | | Magy Samuels RN | Care Coordination | | 2018 | | | | | +--------+ + + + + | 08/10/ | Pharmacy | | | | | 2017 | Visit | | | | +--------+ + + + + | 03/23/ | Abstract | | Lavell Wallace, | | | 2017 | | | MD | | +--------+ + + + + | 03/21/ | Telephone | | Geno Veras, | | | 2017 | | | HEAVY CLEANER | | +--------+ + + + + | 03/17/ | Telephone | | Magy Samuels RN | Care Coordination | | 2017 | | | | | +--------+ + + + + | 03/17/ | Acid Filler | | Geno Veras, | Mixed | | 2017 | | | HEAVY CLEANER | oligoastrocytoma | | | | | | (HCC) (Primary Dx); | | | | | | Encounter for | | | | | | antineoplastic | | | | | | chemotherapy | +--------+ + + + + | 03/16/ | Abstract | | Lavell Wallace, | | | 2017 | | | MD | | +--------+ + + + + | 03/16/ | Abstract | | Lavell Wallace, | | | 2017 | | | MD | | +--------+ + + + + | 03/14/ | Telephone | | Geno Veras, | | | 2017 | | | HEAVY CLEANER | | +--------+ + + + + | 03/04/ | Lab | | | Oligoastrocytoma | | 2017 | | | | (HCC); Vitamin D | | | | | | deficiency ; | | | | | | Localization-related | | | | | | epilepsy (HCC) | +--------+ + + + + | 03/04/ | Office | | Asha Hyatt, | Localization-related | | 2017 | Visit | | CAT OPERATOR | epilepsy (HCC) | | | | | | (Primary Dx); | | | | | | Vitamin D deficiency | | | | | | | +--------+ + + + + | 03/04/ | Telephone | | Magy Samuels RN | Lab Results | 2017 | | | | | +--------+ + + + + | 02/26/ | Refill | | Wanda Miranda, | Refill Request | 2017 | | | MD | | +--------+ + + + + | 02/21/ | Abstract | | Lavell Wallace, | | | 2017 | | | MD | | +--------+ + + + + | 02/18/ | Telephone | | Angy Quintero | Lab Results | | 2017 | | | R, HEAVY CLEANER | | +--------+ + + + + | 02/17/ | Pharmacy | | | | | 2017 | Visit | | | | +--------+ + + + + | 02/10/ | Pharmacy | | | | | 2017 | Visit | | | | +--------+ + + + + | 02/09/ | Abstract | | Lavell Wallace, | | | 2017 | | | MD | | +--------+ + + + + | 02/09/ | Pharmacy | | | | | 2017 | Visit | | | | +--------+ + + + + | 02/07/ | Pharmacy | | | | | 2017 | Visit | | | | +--------+ + + + + | 02/07/ | Telephone | | Geno Veras, | | | 2017 | | | HEAVY CLEANER | | +--------+ + + + + from Last 3 Months Immunizations + + + + | Name | Dates Previously Given | Next Due | + + + + | Influenza Injectable | 09/08/2013 | | | Quadrivalent (IIV4 | | | | P-Free) | | | + + + + | Influenza, split | 08/26/2009 | | + + + + Family History + + +------+ + | Medical History | Relation | Name | Comments | + + +------+ + | Cancer | Brother | | anaplastic oligodendroglioma | + + +------+ + | None | Father | | | + + +------+ + | Cancer | Maternal | | breast | | | Grandmoth | | | | | er | | | + + +------+ + | Diabetes | Mother | | | + + +------+ + | Cancer | Paternal | | prostate | | | Grandfath | | | | | er | | | + + +------+ + + +------+--------+ + | Relation | Name | Status | Comments | + +------+--------+ + | Brother | | | | + +------+--------+ + | Father | | Alive | | + +------+--------+ + | Maternal Grandmother | | | | + +------+--------+ + | Mother | | Alive | | + +------+--------+ + | Paternal Grandfather | | | | + +------+--------+ + Social History + + + +--------+ [...] + + + + | Temperature | 36.7 C (98 F) | 09/28/2017 1:28 PM PST | + + + + | Respiratory Rate | 16 | 10/17/2016 7:56 AM PST | + + + + | Oxygen [...] PM PDT | + + + + Plan of Treatment +--------+---------+ + + + | Date | Type | Specialty | Care Team | Description | +--------+---------+ + + + | 06/30/ | Office | | | | | 2017 | Visit | | | | +--------+---------+ + + + | 07/06/ | Office | | Wanda Miranda, | | | 2017 | Visit | | [address] [facility] | | | | | | [address] | | | | | | [place], [place] | | | | | | [address] | | | | | | [phone] | | | | | | | | +--------+---------+ + + + + + + + + | Health Maintenance | Due Date | Last Done | Comments | + + + + + | INFLUENZA VACCINE | | 04/25/2016, 09/08/2013, | | | (FLU SHOT) | 8 | 08/26/2009, Additional history | | | | | exists | | + + + + + Implants + +------+------+ +--------+--------+--------+ | Implanted | Type | Area | Manufacture | Device | Expira | Model | | | | | r | | tion | / | | | | | | Identi | Date | Serial | | | | | | fier | | / Lot | + +------+------+ +--------+--------+--------+ | Screw Bone 4mm 1.55mm 2.55mm | | | [employer] | | | 04.503 | | Matrixneuro | | | | | | .104.0 | | Craniomaxillofacial Titanium | | | | | | 5 / / | | Self Drill Nonsterile - | | | | | | | | [id number]: Qty: 10 | | | | | | | | on 10/14/2016 by Kee, | | | | | | | | MD Alicia | | | | | | | + +------+------+ +--------+--------+--------+ | Plate Bone .5mm | | | [employer] [facility] | | | 421.52 | | Craniomaxillofacial Titanium | | | | | | 2 / / | | 6 Hole Strut Low Profile | | | | | | | | Nonsterile - | | | | | | | | [id number]: Qty: 3 on | | | | | | | | 10/14/2016 by Alicia Sweet, | | | | | | | | MD | | | | | | | + +------+------+ +--------+--------+--------+ | Graft Soft Tissue 3x3in | | | [employer] | | 05/15/ | [id number] | | Duragen Plus Cranial Dura | | | LIFESCIENCE | | 2018 | / | | Bovine Collagen Matrix Patch | | | S | | | [id number] | | Resorbable Suturable - | | | | | | 61 | | [id number]: Qty: 1 on | | | | | | | | 10/14/2016 by Alicia Sweet, | | | | | | | | MD | | | | | | | + +------+------+ +--------+--------+--------+ + +------+------+ +--------+--------+--------+ | Explanted | Type | Area | Manufacture | Device | Expira | Model | | | | | r | | tion | / | | | | | | Identi | Date | Serial | | | | | | fier | | / Lot | + +------+------+ +--------+--------+--------+ | Screw Bone 4mm 1.55mm 2.55mm | | | [employer] | | | 04.503 | | Matrixneuro | | | | | | .104.0 | | Craniomaxillofacial Titanium | | | | | | 5 / / | | Self Drill Nonsterile - | | | | | | | | [id number]: Kee | | | | | | | | MD Alicia (Quantity not on | | | | | | | | file)Explanted: Qty: 3 on | | | | | | | | 10/14/2016 by Alicia Sweet | | | | | | | | | | | | | | | + +------+------+ +--------+--------+--------+ Procedures + +--------+ + + + | [...] section. | + +--------+ + + + | [...] section. | + +--------+ + + + | CBC, WITH | Routin | 03/18/2018 | | Results for this | | DIFFERENTIAL | e | 12:00 AM | | procedure are in the | | | | PDT | | results section. | + +--------+ + + + | CBC, WITH | Routin | 03/11/2018 | | Results for this | | DIFFERENTIAL | e | 12:00 AM | | procedure are in the | | | | PDT | | results section. | + +--------+ + + + | [...] | + +--------+ + + + | CBC AND AUTO DIFF | Routin | 03/04/2018 | Oligoastrocytoma | Results for this | | | e | 1:54 PM | (HCC) | procedure are in the | | | | PDT | | results section. | + +--------+ + + + | VITAMIN D, | Routin | 03/04/2018 | Oligoastrocytoma | Results for this | | 25-HYDROXY, SERUM | e | 1:54 PM | (HCC) Vitamin D | procedure are in the | | | | PDT | deficiency | results section. | | | | | Localization-related | | | | | | epilepsy (HCC) | | + +--------+ + + + | COMPLETE METABOLIC | Routin | 03/04/2018 | | Results for this | | SET | e | 1:54 PM | Localization-related | procedure are in the | | (NA,K,CL,CO2,BUN,CRE | | PDT | epilepsy ([facility]) | results section. | | AT,GLUC,CA,AST,ALT,B | | | | | | MARIELENA TOTAL,ALK | | | | | | PHOS,ALB,PROT TOTAL) | | | | | + +--------+ + + + | TOPIRAMATE, SERUM | Routin | 03/04/2018 | | Results for this | | | e | 1:54 PM | Localization-related | procedure are in the | | | | PDT | epilepsy ([facility]) | results section. | + +--------+ + + + | PHENYTOIN, FREE & | Routin | 03/04/2018 | | Results for this | | TOTAL | e | 1:54 PM | Localization-related | procedure are in the | | | | PDT | epilepsy (HCC) | results section. | + +--------+ + + + | T CELL QUANT (T,B | Routin | 03/04/2018 | Oligoastrocytoma | Results for this | | AND NK), BLOOD | e | 1:54 PM | (HCC) | procedure are in the | | | | PDT | | results section. | + +--------+ + + + | CBC, WITH | Routin | 03/04/2018 | Oligoastrocytoma | Results for this | | DIFFERENTIAL | e | 1:54 PM | (HCC) | procedure are in the | | | | PDT | | results section. | + +--------+ + + + | CBC, WITH | Routin | 02/18/2018 | | Results for this | | DIFFERENTIAL | e | 12:00 AM | | procedure are in the | | | | PDT | | results section. | + +--------+ + + + from Last 3 Months Results CBC, WITH DIFFERENTIAL (04/08/2018)Only the most recent of 5 results within the time period is included. + +-------+ + + | Component | [...] + | [facility] - | [address] | [place], [place] | [phone] | | [place] | | | | + + + + + COMPLETE METABOLIC SET (NA,K,CL,CO2,BUN,CREAT,GLUC,CA,AST,ALT,BILI TOTAL,ALK PHOS,ALB,PROT TOTAL) (04/08/2018)Only the most recent of 3 results within the time period is included. + +-------+ + + | Component | [...] + | [facility] - | [address] | [place], [place] | [phone] | | [place] | | | | + + + + + CBC AND AUTO DIFF (03/04/2018 1:54 PM) + + + + + | Component | Value | Ref Range | Performed At | + + + + + | WHITE CELL COUNT | 4.91 | 3.50 - 10.80 K/cu mm | [facility] | | | | [facility] | [facility] | + + + + + | RED CELL COUNT | 4.17 (L) | 4.50 - 6.00 M/cu mm | [facility] | [facility] | | [facility] | | | | | [facility] | + + + + + | HEMOGLOBIN | 14.4 | 13.5 - 17.5 g/dL | [facility] | | | | | [facility], | | | | | [facility] | + + + + + | HEMATOCRIT | 42.8 | 41.0 - 53.0 % | [facility] | | | | | [facility], | | | | | [facility] | + + + + + | MCV | 102.6 (H) | 80.0 - 100.0 fL | [facility] | | | | | [facility], | | | | | [facility] | + + + + + | MCHC | 33.6 | 32.0 - 36.0 g/dL | [facility] | | | | | [facility], | | | | | [facility] | + + + + + | RDW SD | 47.7 (H) | 35.1 - 46.3 fL | [facility] | | | | | [facility], | | | | | [facility] | + + + + + | PLATELET COUNT | 143 (L) | 150 - 400 K/cu mm | [facility] | | | | | [facility], | | | | | [facility] | + + + + + | MPV | 9.0 (L) | 9.7 - 12.3 fL | [facility] | | | | | [facility], | | | | | [facility] | + + + + + | NEUTROPHIL % | 58.1 | 50.0 - 70.0 % | [facility] | | | | | [facility], | | | | | [facility] | + + + + + | LYMPHOCYTE % | 29.3 | 18.0 - 42.0 % | [facility] | | | | | [facility], | | | | | [facility] | + + + + + | MONOCYTE % | 9.8 (H) | 3.5 - 9.0 % | [facility] | | | | | [facility], | | | | | [facility] | + + + + + | EOS % | 2.2 | 1.0 - 3.0 % | [facility] | | | | | [facility], | | | | | [facility] | + + + + + | BASO % | 0.6 | 0.0 - 2.0 % | [facility] | | | | | [facility], | | | | | [facility] | + + + + + | NEUTROPHIL # | 2.85 | 1.80 - 7.70 K/cu mm | [facility] | | | | | [facility], | | | | | [facility] | + + + + + | LYMPHOCYTE # | 1.44 | 1.00 - 4.80 K/cu mm | [facility] | | | | | [facility], | | | | | [facility] | + + + + + | MONOCYTE # | 0.48 | 0.10 - 0.90 K/cu mm | [facility] | | | | | [facility], | | | | | [facility] | + + + + + | EOS # | 0.11 | 0.00 - 0.50 K/cu mm | [facility] | | | | | [facility], | | | | | [facility] | + + + + + | BASO # | 0.03 | 0.00 - 0.10 K/cu mm | [facility] | | | | | SERVICES, | | | | | [facility] | | [facility] + | | | | | [facility] | + + + + + + + | Specimen | + + | Blood - Blood | + + + + + | Narrative | Performed At | + + + | New pediatric reference ranges for Lymphocyte % in effect January 27, | [facility] | | 2018. | LABORATORY | | | SERVICES, | | | [facility] | [facility] + [facility] | | [facility] | + + + + + + + + | Performing | Address | City/State/Zipcode | Phone Number | | Organization | | | | + + + + + | [facility] | [address] | [place] [address] | | | [facility] | | | | | HEALTH + HEALING | | | | + + + + + LYMPHOCYTE QUANTITATION (T,B AND NK), BLOOD (03/04/2018 1:54 PM) + +-------+ + + | Component | Value | Ref Range | Performed At | + +-------+ + + | CD3% (TOTAL T CELLS) | 75.5 | 49.0 - 85.0 % | [facility] | | | | | SERVICES, | | | | | [facility] + | | | | | COAG | + +-------+ + + | CD3 (TOTAL T CELLS) | 1,012 | 411-2,061 /cu mm | [facility] | | | | | SERVICES, | | | | | [facility] + | | | | | COAG | + +-------+ + + | CD4 % (T HELPER | 44.9 | 26.0 - 61.0 % | [facility] | | CELLS) | | | SERVICES, | | | | | SPECIAL IMM + | | | | | COAG | + +-------+ + + | CD4 (T HELPER CELLS) | 624 | 212-1,391 /cu mm | [facility] | | | | | SERVICES, | | | | | SPECIAL IMM + | | | | | COAG | + +-------+ + + | CD8 % (T SUPPRESSOR | 29.1 | 10.0 - 31.0 % | [facility] | | CELLS) | | | SERVICES, | | | | | SPECIAL IMM + | | | | | COAG | + +-------+ + + | CD8 (T SUPPRESSOR | 405 | 59 - 699 /cu mm | [facility] | | CELLS) | | | SERVICES, | | | | | SPECIAL IMM + | | | | | COAG | + +-------+ + + | CD4/CD8 RATIO | 1.5 | 1.0 - 3.6 Ratio | [facility] | | | | | SERVICES, | | | | | SPECIAL IMM + | | | | | COAG | + +-------+ + + | CD19%(TOTAL B CELLS) | 13.9 | 4.0 - 17.0 % | [facility] | | | | | SERVICES, | | | | | SPECIAL IMM + | | | | | COAG | + +-------+ + + | CD19 (TOTAL B CELLS) | 180 | 32 - 341 /cu mm | [facility] | | | | | SERVICES, | | | | | SPECIAL IMM + | | | | | COAG | + +-------+ + + | CD56+, CD3- % (NK | 5.8 | 5.0 - 28.0 % | [facility] | | CELLS) | | | SERVICES, | | | | | SPECIAL IMM + | | | | | COAG | + +-------+ + + | CD56+, CD3- (NK | 75 | 71 - 499 /cu mm | [facility] | | CELLS) | | | SERVICES, | | | | | SPECIAL IMM + | | | | | COAG | + +-------+ + + | LYMPHOCYTE NUMBER | 1,389 | 1,000-3,440 /cu mm | [facility] | | | | | SERVICES, | | | | | SPECIAL IMM + | | | | | COAG | + +-------+ + + + + | Specimen | + + | Blood - Blood | + + + + + | Narrative | Performed At | + + + | This is a quantitative assay for lymphocyte subsets and may be | [facility] | | useful for initial screening. Please request the IMMUNODEF SURFACE | LABORATORY | | MARKERS PANEL or ALPS-LYMPHOPROLIFERATIVE MARKER PANEL for more | SERVICES, | | comprehensive Flow Cytometry testing of immunodeficiency or autoimmune | SPECIAL IMM + | | disorders. (Analyte specific reagents are used in many laboratory | COAG | | tests necessary for standard medical care. This test was developed | | | and its performance characteristics determined by [facility] | | | laboratories. It has not been cleared or approved by the US Food | | | and Drug Administration (FDA). FDA does not require this test to go | | | through premarket FDA review. This test is used for clinical | | | purposes. It should not be regarded as investigational or for | | | research. The laboratory is certified under the Clinical Laboratory | | | Improvement Amendments (CLIA) as qualified to perform high complexity | | | clinical laboratory testing.) | | + + + + + + + + | Performing | Address | City/State/Zipcode | Phone Number | | Organization | | | | + + + + + | [facility] | [address] | [place] [address] | | | SERVICES, SPECIAL | [address] | | | | IMM + COAG | | | | + + + [...] dizziness.Performed by | | | | | [facility] | | | | | [address] Little, [facility],[place] | | | | | [address] | | | | | [phone]. | | | | | [facility], Anuj Harden MD, | | | | | Lab. Director | | | + + + + + + + | Specimen | + + | Blood - Blood | + + + + + + + | Performing | Address | City/State/Zipcode | Phone Number | | Organization | | | | + + + + + | [facility] | [address] | [place], [place] | | | [facility] | | [address] | | + + + + + VITAMIN D, 25-HYDROXY, SERUM (03/04/2018 1:54 PM) + +-------+ + + | Component | Value | Ref Range | Performed At | + +-------+ + + | VITAMIN D 25 HYDROXY | 37.0 | 30 - 80 ng/mL | [facility] | | | | | SERVICES, CORE | + +-------+ + + + + | Specimen | + + | Blood - Blood | + + + + + | Narrative | Performed At | + + + | Reference Interval: 0-18years: Deficiency: <20 ng/mL | [facility] | | Optimum level: >or=20 | LABORATORY | | ng/mL | SERVICES, CORE | | >18years: Deficiency: <20 ng/mL | | | Insufficiency: 20-29 ng/mL | | | Optimum Level: 30-80 ng/mL | | | High: 81-150 ng/ml | | | Toxic: >150 ng/mL | | + + + + + + + + | Performing | Address | City/State/Zipcode | Phone Number | | Organization | | | | + + + + + | [facility] | [address] | [place] [address] | | | SERVICES, CORE | [address] | | | + + + [...] | REFERENCE LAB | | performed by: [facility] [address], [place] | | | [address] | | | | | |Test performed by: | | |[facility] | | |[address] | | |[place] [address] | | + + + + + + + + | Performing | Address | City/State/Zipcode | Phone Number | | Organization | | | | + + + + + | [facility] | | | | + + + + + | [facility] | see below | | | + + + + + from Last 3 Months Insurance + +--------+ +--------+ + + | Payer | Benefi | Subscriber | Type | Phone | Address | | | t Plan | ID | | | | | | / | | | | | | | Group | | | | | + +--------+ +--------+ + + | MEDICARE | MEDICA | xxxxxxxxxx | Medica | [phone] | [address] | | | RE A & | | re | [phone] | [place] [address] | | | B | | | | | + +--------+ +--------+ + + + +--------+ +--------+ + + | Guarantor Name | Accoun | Relation to | Date | Phone | Billing Address | | | t Type | Patient | of | | | | | | | | | | + +--------+ +--------+ + + | ORTIZ CHATMAN | Person | Self [birth year] | Home: | [address] | | | al/Mat | | 1975 | [phone] | [place] [address] | | | raffaele | | | [phone] | | + +--------+ +--------+ + +
--- OUTSIDE RECORDS SUMMARY | ~2018-05-08 | XMS | Encounter Summary ---
Demographics + + + | Address | [address] | | | [place] [address] | + + + | Home Phone | | + + + | Preferred Language | Unknown | + + + | Marital Status | Single | + + + | Synagogue Affiliation | NON | + + + [...] Team Providers + +------+ + | Care Cdl Dedicated Truck Driver Name | Role | Phone | + [...] + + | 02/18/ | Telephone | Neurologic | Angy Quintero | Lab Results | | 2018 | | Oncology at | R, METAL PUNCH PRESS OPERATOR [address] | | | | | Physicians [facility] | [address] | | | | | [address] | [place], [place] | | | | | [facility] | [address] | | | | | Mailcode: [id number] | [phone] | | | | | [address] | | | | | | [place], [place] | | | | | | [address] | | | | | | [phone] | | | +--------+ + + + [...] [address] | | | | | | [place] | | | | | | [address] | | | | | | [phone] | | | | | | | | +--------+---------+ + + + as of this encounter Visit Diagnoses Not on filein this encounter"
--- OUTSIDE RECORDS SUMMARY | ~2018-05-08 | XMS | Encounter Summary ---
Demographics + + + | Address | [address] | | | [place] [address] | + + + | Home Phone | | + + + | Preferred Language | Unknown | + + + | Marital Status | Single | + + + | Hindu Affiliation | NON | + + + | Race | White | + + + | Ethnic Group | Not or | + + + Author + + + | Author | [facility] | + + + | Organization | [facility] | + + + | Address | Unknown | + + + | Phone | Unavailable | + + + Support + + +---------+ + | Name | Relationship | Address | Phone | + + +---------+ + | Vi Chatman | ECON | Unknown | | + + +---------+ + Care Team Providers + +------+ + | Care Rail Filler Name | Role | Phone | + +------+ + | Tony Emmanuel MD | PCP | | + +------+ + Encounter Details +--------+ + + + + | Date | Type | Department | Care Team | Description | +--------+ + + + + | 03/25/ | Pharmacy | Specialty Pharmacy | | | | 2017 | Visit | Services [address] | | | | | | [address] | | | | | | [place], [place] | | | | | | [address] | | | | | | [phone] | | | +--------+ + + + [...] [address] | | | | | | [place], [place] | | | | | | [address] | | | | | | [phone] | | | | | | | | +--------+---------+ + + + as of this encounter Visit Diagnoses Not on filein this encounter"
--- OUTSIDE RECORDS SUMMARY | ~2018-05-08 | XMS | Encounter Summary ---
Demographics + + + | Address | [address] | | | [place] [address] | + + + | Home Phone | | + + + | Preferred Language | Unknown | + + + | Marital Status | Single | + + + | Hinduism Affiliation | NON | + + + [...] Team Providers + +------+ + | Care Assistant Grocery Store Manager Name | Role | Phone | + +------+ + | Tony Emmanuel MD | PCP | | + +------+ + Reason for Visit + + + | Reason | Comments | + + + | Care Coordination | | + + + Encounter Details +--------+ + + + + | Date | Type | Department | Care Team | Description | +--------+ + + + + | 03/17/ | Telephone | Neurologic | Magy Samuels RN | Care Coordination | | 2018 | | Oncology at | [address] | | | | | Physicians [facility] | [facility] | | | | | [address] | [place], [place] | | | | | [facility] | [address] | | | | | Mailcode: [id number] | | | | | | Physicians [facility]anda | | | | | | [place], [place] | | | | | | [address] | | | | | | [phone] | | | +--------+ + + + [...] [address] | | | | | | [place] | | | | | | [address] | | | | | | [phone] | | | | | | | | +--------+---------+ + + + as of this encounter Visit Diagnoses Not on filein this encounter"
--- OUTSIDE RECORDS SUMMARY | ~2018-05-08 | XMS | Encounter Summary ---
Demographics + + + | Address | [address] | | | [place] [address] | + + + | Home Phone | | + + + | Preferred Language | Unknown | + + + | Marital Status | Single | + + + | Restorationist Affiliation | NON | + + + | Race | White | + + + | Ethnic Group | Not or | + + + Author + + + | Author | [facility] | + + + | Organization | [facility] | + + + | Address | Unknown | + + + | Phone | Unavailable | + + + Support + + +---------+ + | Name | Relationship | Address | Phone | + + +---------+ + | Vi Chatman | ECON | Unknown | | + + +---------+ + Care Team Providers + +------+ + | Care Drawing Tender Name | Role | Phone | + +------+ + | Tony Emmanuel MD | PCP | | + +------+ + Encounter Details +--------+------+ + + + | Date | Type | Department | Care Team | Description | +--------+------+ + + + | 03/04/ | Lab | Laboratory at [facility] | | Oligoastrocytoma | | 2017 | | 3rd Floor [address] | | ([facility]); Vitamin D | | | | [address], | | deficiency ; | | | | [place] [address] | | Localization-related | | | | [phone] | | epilepsy ([facility]) | +--------+------+ + + + Social History + + [...] | 2017 | Visit | | [address] | | | | | | [address] | | | | | | [place], [place] | | | | | | [address] | | | | | | [phone] | | | | | | | [...] | (NA,K,CL,CO2,BUN,CRE | | PDT | epilepsy (HCC) | results section. | | AT,GLUC,CA,AST,ALT,B | | | | | | MARIELENA TOTAL,ALK | | | | | | PHOS,ALB,PROT TOTAL) | | | | | + +--------+ + + + in this encounter Results VITAMIN D, 25-HYDROXY, SERUM (03/04/2018 1:54 PM) [...] | + + + + + | [facility] | [address] | [place] [address] | | | SERVICES, CORE | [address] | | | + + + + + CBC AND AUTO DIFF (03/04/2018 1:54 PM) + + + + + | Component | Value | Ref Range | Performed At | + + + + + | WHITE CELL COUNT | 4.91 | 3.50 - 10.80 K/cu mm | [facility] | | | | | SERVICES, | | | | | [facility] + | | | | | [facility] | + + + + + | RED CELL COUNT | 4.17 (L) | 4.50 - 6.00 M/cu mm | [facility] | | | [...] (H) | 80.0 - 100.0 fL | [facility] | | | | | SERVICES, | | | | | [facility] | [facility] | [facility] + | | | | | [facility]AL[facility] | + + + + + | MCHC | 33.6 | 32.0 - 36.0 g/dL | [facility] | | | | | SERVICES, | | | | | [facility] | | [facility] | [facility] + | | | | | HEALING | + + + + + | RDW SD | 47.7 (H) | 35.1 - 46.3 fL | [facility] | | | | | [...] | 0.00 - 0.50 K/cu mm | [facility] | | | | | SERVICES, | | | | | [facility] | | [facility] | [facility] + | | | | | HEALING | + + + + + | BASO # | 0.03 | 0.00 - 0.10 K/cu mm | [facility] | | | | | [...] Lymphocyte % in effect January 27, | [facility] | | 2018. | [facility]ORAT[facility] | | | [facility], | | | [facility] | | | [facility] + | | | HEALING | + + + + + + + + | Performing | Address | City/State/Zipcode | Phone Number | | Organization | | | | + + + + + | [facility] | [address] | [place] [address] | | | SERVICES, [facility] | | | | | [facility] [...] 15 | 6 - 20 mg/dL | [facility] | | | | | SERVICES, CORE | + +---------+ + + | CREATININE PLASMA | 0.85 | 0.70 - 1.30 mg/dL | [facility] | | (LAB) | | | SERVICES, CORE | + +---------+ + + | EGFR - | >60 | >60 mL/min | [facility] | | ETHIOPIAN | | | SERVICES, CORE | + +---------+ + + | EGFR NON | >60 | >60 mL/min | [facility] | | -ETHIOPIAN | | | SERVICES, CORE | + [...] 7.9 | 6.4 - 8.2 g/dL | [facility] | | PLASMA (LAB) | | [...] CORE | + +---------+ + + | BILI T CMNT | No Hemo | | [...] | + + + + + | [facility] | [address] [facility] | [place] [address] | | | SERVICES, CORE | [address] [...] dizziness.Performed by | | | | | [address] | | | | | [address], [facility],[place] | | | | | [address] | | | | | [phone].Banjo. | | | | | [facility] MD, | | | | | Lab. [...] [facility] | [address] | [place], [place] | | | [facility] | | [address] | | + + + + + [...] | REFERENCE LAB | | performed by: [facility] [address], [place] | | | [address] | | | | | |Test performed by: | | |[facility] | | |[address] | | |[place] [address] | | + + + + + [...] 75.5 | 49.0 - 85.0 % | [facility] | | | | | SERVICES, | | | | | SPECIAL IMM + | | | | | COAG | + +-------+ + + | CD3 (TOTAL T CELLS) | 1,012 | 411-2,061 /cu mm | [facility] | | | | | SERVICES, | | | | | SPECIAL IMM + | | | | | COAG | + +-------+ + + | CD4 % (T HELPER | 44.9 | 26.0 - 61.0 % | [facility] | | CELLS) | | [...] | 59 - 699 /cu mm | [facility] | | CELLS) | | | [...] | and its performance characteristics determined by [facility] | | | laboratories. 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
--- OUTSIDE RECORDS SUMMARY | ~2018-05-08 | XMS | Encounter Summary ---
Demographics + + + | Address | [address] | | | [place] [address] | + + + | Home Phone | | + + + | Preferred Language | Unknown | + + + | Marital Status | Single | + + + | Latter-Day Affiliation | NON | + + + [...] Team Providers + +------+ + | Care Director Of Enrollment Name | Role | Phone | + +------+ + | Tony Emmanuel MD | PCP | | + +------+ + Encounter Details +--------+ + + + + | Date | Type | Department | Care Team | Description | +--------+ + + + + | 05/02/ | Telephone | Neurologic | Angy Quintero | | | 2018 | | Oncology at | R, RAIL CAR UNLOADER [address] | | | | | Physicians [facility] | [address] | | | | | [address] | [place], [place] | | | | | [facility] | [address] | | | | | Mailcode: [id number] | [phone] | | | | | Physicians [address] | | | | | | [place], [place] | | | | | | [address] | | | | | | [phone] | | | +--------+ + + + [...] [address] | | | | | | [place], [place] | | | | | | [address] | | | | | | [phone] | | | | | | | | +--------+---------+ + + + as of this encounter Visit Diagnoses Not on filein this encounter"
--- OUTSIDE RECORDS SUMMARY | ~2018-05-08 | XMS | Encounter Summary ---
Demographics + + + | Address | [address] | | | [place] [address] | + + + | Home Phone [...] Author + + + | Author | [facility] | + + + | Organization | [facility] | + + + | Address | Unknown | + + + | Phone | Unavailable | + + + Support + + +---------+ + | Name | Relationship | Address | Phone | + + +---------+ + | Vi Chatman | ECON | Unknown | | + + +---------+ + Care Team Providers + +------+ + | Care Bell Hole Digger Name | Role | Phone | + [...] | | | [address] | [place], [place] | | | | | [facility] | [address] | | | | | Mailcode: [id number] | [phone] | | | | | Physicians [facility]olanda | | | | | | [place], [place] | | | | | | [address] | | | | | | [phone] | | | +--------+ + + + [...] [address] | | | | | | [place], [place] | | | | | | [address] | | | | | | [phone] | | | | | | | [...] + + | [facility] - | [address] | [place] | [phone] | | [place] | | | | + + + + + in this encounter Visit Diagnoses Not on filein this encounter"
--- OUTSIDE RECORDS SUMMARY | ~2018-05-08 | XMS | Encounter Summary ---
Demographics + + + | Address | [address] | | | [place] [address] | + + + | Home Phone | | + + + | Preferred Language | Unknown | + + + | Marital Status | Single | + + + | Shinto Affiliation | NON | + + + [...] Team Providers + +------+ + | Care Audiology Assistant Name | Role | Phone | [...] | | | [address] | [place], [place] | | | | | [facility] | [address] | | | | | Mailcode: [id number] | [phone] | | | | | Physicians [facility]olanda | | | | | | [place], [place] | | | | | | [address] | | | | | | [phone] | | | +--------+ + + + [...] Rd | | | | | | [place], [place] | | | | | | [address] | | | | | | [phone] | | | | | | | [...] + + | [facility] - | [address] | [place] | [phone] | | [place] | | | | + + + + + in this encounter Visit Diagnoses Not on filein this encounter"
--- OUTSIDE RECORDS SUMMARY | ~2018-05-08 | XMS | Encounter Summary ---
Demographics + + + | Address | [address] | | | [place] [address] | + + + | Home Phone | | + + + | Preferred Language | Unknown | + + + | Marital Status | Single | + + + | Sikh Affiliation | NON | + + + | Race | White | + + + | Ethnic Group | Not or | + + + Author + + + | Author | [facility] | + + + | Organization | [facility] | + + + | Address | Unknown | + + + | Phone | Unavailable | + + + Support + + +---------+ + | Name | Relationship | Address | Phone | + + +---------+ + | Vi Chatman | ECON | Unknown | | + + +---------+ + Care Team Providers + +------+ + | Care Rotary Screen Printing Machine Operator Name | Role | Phone | + [...] | | | [address] | [place], [place] | | | | | [facility] | [address] | | | | | Mailcode: [id number] | | | | | | Physicians [facility]olanda | | | | | | [place], [place] | | | | | | [address] | | | | | | [phone] | | | +--------+ + + + [...] [address] | | | | | | [place] | | | | | | [address] | | | | | | [phone] | | | | | | | | +--------+---------+ + + + as of this encounter Visit Diagnoses Not on filein this encounter"
--- OUTSIDE RECORDS SUMMARY | ~2018-05-08 | XMS | Encounter Summary ---
Demographics + + + | Address | [address] | | | [place] [address] | + + + | Home Phone | | + + + | Preferred Language | Unknown | + + + | Marital Status | Single | + + + | Quaker Affiliation | NON | + + + | Race | White | + + + | Ethnic Group | Not or | + + + Author + + + | Author | [facility] | + + + | Organization | [facility] | + + + | Address | Unknown | + + + | Phone | Unavailable | + + + Support + + +---------+ + | Name | Relationship | Address | Phone | + + +---------+ + | Vi Chatman | ECON | Unknown | | + + +---------+ + Care Team Providers + +------+ + | Care Medical Orderly Name | Role | Phone | + +------+ + | Tony Emmanuel MD | PCP | | + +------+ + Encounter Details +--------+ + + + + | Date | Type | Department | Care Team | Description | +--------+ + + + + | 03/30/ | Pharmacy | Specialty Pharmacy | | | | 2017 | Visit | Services [address] | | | | | | [address] | | | | | | [place], [place] | | | | | | [address] | | | | | | [phone] | | | +--------+ + + + [...] [address] | | | | | | [place], [place] | | | | | | [address] | | | | | | [phone] | | | | | | | | +--------+---------+ + + + as of this encounter Visit Diagnoses Not on filein this encounter"
--- OUTSIDE RECORDS SUMMARY | ~2018-05-08 | XMS | Encounter Summary ---
Demographics + + + | Address | [address] | | | [place] [address] | + + + | Home Phone | | + + + | Preferred Language | Unknown | + + + | Marital Status | Single | + + + | Spiritism Affiliation | NON | + + + | Race | White | + + + | Ethnic Group | Not or | + + + Author + + + | Author | [facility] | + + + | Organization | [facility] | + + + | Address | Unknown | + + + | Phone | Unavailable | + + + Support + + +---------+ + | Name | Relationship | Address | Phone | + + +---------+ + | Vi Chatman | ECON | Unknown | | + + +---------+ + Care Team Providers + +------+ + | Care Target Man Name | Role | Phone | + [...] + + | 03/25/ | Telephone | Neurologic | Magy Samuels RN | Care Coordination | | 2018 | | Oncology at | [address] | | | | | Physicians [facility] | [facility] | | | | | [address] | [place], [place] | | | | | [facility] | [address] | | | | | Mailcode: [address] | | | | | | Physicians [facility]olanda | | | | | | [place], [place] | | | | | | [address] | | | | | | [phone] | | | +--------+ + + + [...] [address] | | | | | | [place] | | | | | | [address] | | | | | | [phone] | | | | | | | | +--------+---------+ + + + as of this encounter Visit Diagnoses Not on filein this encounter"
--- OUTSIDE RECORDS SUMMARY | ~2018-05-08 | XMS | Encounter Summary ---
Demographics + + + | Address | [address] | | | [place] [address] | + + + | Home Phone | | + + + | Preferred Language | Unknown | + + + | Marital Status | Single | + + + | Sikhism Affiliation | NON | + + + | Race | White | + + + | Ethnic Group | Not or | + + + Author + + + | Author | [facility] | + + + | Organization | [facility] | + + + | Address | Unknown | + + + | Phone | Unavailable | + + + Support + + +---------+ + | Name | Relationship | Address | Phone | + + +---------+ + | Vi Chatman | ECON | Unknown | | + + +---------+ + Care Team Providers + +------+ + | Care Rug Cleaner Hand Name | Role | Phone | + [...] [address] | | | | | | [place], [place] | | | | | | [address] | | | | | | [phone] | | | +--------+ + + + [...] [address] | | | | | | [place], [place] | | | | | | [address] | | | | | | [phone] | | | | | | | | +--------+---------+ + + + as of this encounter Visit Diagnoses Not on filein this encounter"
--- OUTSIDE RECORDS SUMMARY | ~2018-05-08 | XMS | Encounter Summary ---
Demographics + + + | Address | [address] | | | [place] [address] | + + + | Home Phone | | + + + | Preferred Language | Unknown | + + + | Marital Status | Single | + + + | Jewish Affiliation | NON | + + + [...] Team Providers + +------+ + | Care Data Software Engineer Name | Role | Phone | [...] | | | [address] | [place], [place] | | | | | [facility] | [address] | | | | | Mailcode: [address] | [phone] | | | | | Physicians [facility]olanda | | | | | | [place], [place] | | | | | | [address] | | | | | | [phone] | | | +--------+ + + + [...] [address] | | | | | | [place], [place] | | | | | | [address] | | | | | | [phone] | | | | | | | [address] | [place] | [phone] | | [place] | | | | + + + + + in this encounter Visit Diagnoses Not on filein this encounter"
--- OUTSIDE RECORDS SUMMARY | ~2018-05-08 | XMS | Encounter Summary ---
Demographics + + + | Address | [address] | | | [place] [address] | + + + | Home Phone | | + + + | Preferred Language | Unknown | + + + | Marital Status | Single | + + + | Orthodox Affiliation | NON | + + + [...] Team Providers + +------+ + | Care Lunchroom Mother Name | Role | Phone | + +------+ + | Tony Emmanuel MD | PCP | | + +------+ + Encounter Details +--------+ + + + + | Date | Type | Department | Care Team | Description | +--------+ + + + + | 02/10/ | Pharmacy | Specialty Pharmacy | | | | 2017 | Visit | Services [address] | | | | | [address] | | | | | | [place], [place] | | | | | | [address] | | | | | | [phone] | | | +--------+ + + + [...] Rd | | | | | | [place], [place] | | | | | | [address] | | | | | | [phone] | | | | | | | | +--------+---------+ + + + as of this encounter Visit Diagnoses Not on filein this encounter"
--- OUTSIDE RECORDS SUMMARY | ~2018-05-08 | XMS | Encounter Summary ---
Demographics + + + | Address | [address] | | | [place] [address] | + + + | Home Phone | | + + + | Preferred Language | Unknown | + + + | Marital Status | Single | + + + | Judaism Affiliation | NON | + + + | Race | White | + + + | Ethnic Group | Not or | + + + Author + + + | Author | [facility] | + + + | Organization | [facility] | + + + | Address | Unknown | + + + | Phone | Unavailable | + + + Support + + +---------+ + | Name | Relationship | Address | Phone | + + +---------+ + | Vi Chatman | ECON | Unknown | | + + +---------+ + Care Team Providers + +------+ + | Care Oracle Ebs Consultant Name | Role | Phone | + +------+ + | Tony Emmanuel MD | PCP | | + +------+ + Encounter Details +--------+ + + + + | Date | Type | Department | Care Team | Description | +--------+ + + + + | 02/17/ | Pharmacy | Specialty Pharmacy | | | | 2017 | Visit | Services [address] | | | | | [address] | | | | | | [place], [place] | | | | | | [address] | | | | | | [phone] | | | +--------+ + + + [...] [address] | | | | | | [place], [place] | | | | | | [address] | | | | | | [phone] | | | | | | | | +--------+---------+ + + + as of this encounter Visit Diagnoses Not on filein this encounter"
--- OUTSIDE RECORDS SUMMARY | ~2018-05-08 | XMS | Encounter Summary ---
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 [address] | | ([facility]); Vitamin D | | | | [place], | | deficiency ; | | | | [place] [address] | | Localization-related | | | | [phone] | | epilepsy ([facility]) | +--------+------+ + + + Social History [...] [address] | | | | | | [place], [place] | | | | | | [address] | | | | | | [phone] | | | | | | | [...] [facility] | [address] | [place] [address] | | | SERVICES, CORE | PARK [...] (H) | 80.0 - 100.0 fL | [facility] | | | | | SERVICES, | | | | | [facility] | | [facility] | [facility] + | | | | | HEAL[facility] | + + + + + | MCHC | 33.6 | 32.0 - 36.0 g/dL | [facility] | | | | | SERVICES, | | | | | [facility] | | | | | [facility] + | | | | | HEALING | + + + + + | RDW SD | 47.7 (H) | 35.1 - 46.3 fL | [facility] | | | | | SERVICES, [...] | 0.00 - 0.50 K/cu mm | [facility] | | | | | SERVICES, | | | | | [facility] | | | | | [facility] + | | | | | HEALING | + + + + + | BASO # | 0.03 | 0.00 - 0.10 K/cu mm | [facility] | | | | | SERVICES, [...] | 2018. | LABORATORY | | | [facility], | | | CENTER FOR | | | HEALTH + | | | HEALING | + + + + + + + + | Performing | Address | City/State/Zipcode | Phone Number | | Organization | | | | + + + + + | [facility] | [address] | [place] [address] | | | SERVICES, [place] [facility] | | | | | HEALTH [...] >60 mL/min | [facility] | | [place] | | | SERVICES, CORE | + +---------+ + + | EGFR NON | >60 | >60 mL/min | [facility] | | -[place] | | | SERVICES, CORE | + [...] | + + + + + | [facility] | [address] [facility] | [place] [address] | | | SERVICES, CORE | PARK [...] dizziness.Performed by | | | | | [employer],[address] | | | | | [address], [facility],[place] | | | | | [address] | | | | | [phone].[employer]. | | | | | [facility] MD, | | | | | Lab. [...] [facility] | [address] | [place], [place] | | | [facility] | | [address] | | + + + + + [...] | REFERENCE LAB | | performed by: [facility] [address], [place] | | | [address] | | | | | |Test performed by: | | |[facility] | | |[address] | | |[place] [address] | | + + + + + [...] | 1,012 | 411-2,061 /cu mm | [facility] | | | | | SERVICES, | | | | | SPECIAL IMM + | | | | | COAG | + +-------+ + + | CD4 % (T HELPER | 44.9 | 26.0 - 61.0 % | [facility] | | CELLS) | | | [...] | 59 - 699 /cu mm | [facility] | | CELLS) | | | [...] | and its performance characteristics determined by [facility] | | | laboratories. It has not [...] | + + + + + | [facility] | [address] | [place] [address] | | | SERVICES, SPECIAL | PARK [...]
--- OUTSIDE RECORDS SUMMARY | ~2018-05-08 | XMS | Encounter Summary ---
Demographics + + + | Address | [address] | | | [place] [address] | + + + | Home Phone | | + + + | Preferred Language | Unknown | + + + | Marital Status | Single | + + + | Mandaen Affiliation | NON | + + + [...] Team Providers + +------+ + | Care Rn Chronic Name | Role | Phone | + [...] + + | 04/14/ | Telephone | Neurologic | Magy Samuels RN | Lab Results | | 2018 | | Oncology at | [address] | | | | | [facility] | [address] | | | | | [address] | [place], [place] | | | | | [facility] | [address] | | | | | Mailcode: L[address] | | | | | | [facility] | | | | | | [place], [place] | | | | | | [address] | | | | | | [phone] | | | +--------+ + + + [...] Rd | | | | | | [place] | | | | | | [address] | | | | | | [phone] | | | | | | | | +--------+---------+ + + + as of this encounter Visit Diagnoses Not on filein this encounter"
--- OUTSIDE RECORDS SUMMARY | ~2018-05-08 | XMS | Encounter Summary ---
Demographics + + + | Address | [address] | | | [place] [address] | + + + | Home Phone | | + + + | Preferred Language | Unknown | + + + | Marital Status | Single | + + + | Yarsanism Affiliation | NON | + + + [...] Team Providers + +------+ + | Care Cake Wrapper Name | Role | Phone | + +------+ + | Tony Emmanuel MD | PCP | | + +------+ + Encounter Details +--------+ + + + + | Date | Type | Department | Care Team | Description | +--------+ + + + + | 02/07/ | Telephone | Neurologic | Geno Veras, | | | 2018 | | Oncology at | [facility] [address] | | | | | [facility] | [address] | | | | | [address] | [place], [place] | | | | | [facility] | [address] | | | | | Mailcode: [address] | [phone] | | | | | Physicians [facility] | | | | | | [place], [place] | | | | | | [address] | | | | | | [phone] | | | +--------+ + + + [...] Rd | | | | | | [place], [place] | | | | | | [address] | | | | | | [phone] | | | | | | | | +--------+---------+ + + + as of this encounter Visit Diagnoses Not on filein this encounter"
--- OUTSIDE RECORDS SUMMARY | ~2018-05-08 | XMS | Encounter Summary ---
Demographics + + + | Address | [address] | | | [place] [address] | + + + | Home Phone | | + + + | Preferred Language | Unknown | + + + | Marital Status | Single | + + + | Confucianism Affiliation | NON | + + + | Race | White | + + + | Ethnic Group | Not or | + + + Author + + + | Author | [facility] | + + + | Organization | [facility] | + + + | Address | Unknown | + + + | Phone | Unavailable | + + + Support + + +---------+ + | Name | Relationship | Address | Phone | + + +---------+ + | Vi Chatman | ECON | Unknown | | + + +---------+ + Care Team Providers + +------+ + | Care Class A Truck Driver Name | Role | Phone | + +------+ + | Tony Emmanuel MD | PCP | | + +------+ + Reason for Visit + + + | Reason | Comments | + + + | Chemotherapy Cycle | | + + + Encounter Details +--------+ + + + + | Date | Type | Department | Care Team | Description | +--------+ + + + + | 03/31/ | Telephone | Neurologic | Magy Samuels RN | Chemotherapy Cycle | | 2017 | | Oncology at | [address] | | | | | [facility] | [address] | | | | | [address] | [place], [place] | | | | | [facility] | [address] | | | | | Mailcode: [address] | | | | | | Phys[facility] | | | | | | [place], [place] | | | | | | [address] | | | | | | [phone] | | | +--------+ + + + [...] [address] | | | | | | [place] | | | | | | [address] | | | | | | [phone] | | | | | | | | +--------+---------+ + + + as of this encounter Visit Diagnoses Not on filein this encounter"
--- OUTSIDE RECORDS SUMMARY | ~2018-05-08 | XMS | Encounter Summary ---
Demographics + + + | Address | [address] | | | [place] [address] | + + + | Home Phone | | + + + | Preferred Language | Unknown | + + + | Marital Status | Single | + + + | Lutheran Affiliation | 1001 | + + + | Race | Unknown | + + + | Ethnic Group | Unknown | + + + Author + + + | Author | [facility] | | | and Kashana | + + + | Organization | [facility] | | | and Kashana [...] Team Providers + +------+ + | Care Elocution Teacher Name | Role | Phone | + +------+ + | No, Physician | PCP | Unavailable | + +------+ + Reason for Visit + + + | Reason | Comments | + + + | Follow-up | | + + + Encounter Details +--------+ + + + + | Date | Type | Department | Care Team | Description | +--------+ + + + + | 03/22/ | Hospital | [facility] | Maddy Gonzalez | Glioma (HCC) | | 2018 | Encounter | [facility] | MD Marcy [address] | (Primary Dx) | | | | [facility] [address] | [place], [place] | | | | | [address] | [address] | | | | | [place] [address] | | | | | | [phone] | | | +--------+ + + + [...] + | Blood Pressure | 138/84 | 03/22/2018 0849 PDT | + + + + | [...] | - | + + + + in this encounter Medications at Time of Discharge [...] +-------+---------+ + + as of this encounter Progress Notes Maddy Gonzalez MD - 03/22/2018 0727 PDTFormatting of this note may be different from t he original. Radiation Oncology Follow-up Chief Complaint/ICD10 ICD-10-CM ICD-9-CM 1. 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 He has undergone bruno or subtotal resection/biopsy on 2 occasions (2008 and 2016). Prior (09/2009-12/2010) and rec ent (01/2017-08/2017) treatment with Temodar with recent progression on Temodar. Completed ra diation therapy alone with 50.4 Gy in 28 fractions on 11/29/17. Ortiz was last seen at completion of radiation in November. Proceeded directly to additional chemotherapy at [facility], CCNU (Lomustine) 90mg /m2 every 6 we eks, started 12/17/17. Seems to be tolerating therapy well. Notes mild fatigue. Continued he adaches a few times a week. Stable from prior to treatment, no worsening. Manages with OTC E xcedrin. MRI brain on 01/20/18 demonstrated expansion of heterogeneous enhancing mass, suspicious for progression versus posttreatment changes/pseudo-progression. Similar T2/FLAIR surrounding h yperintensity. Dilantin alternate day 500 mg/600 mg po daily in AM and topiramate 200 mg BID. Managed by the [facility] epilepsy clinic. No recent generalized seizures. MRI brain scheduled for later today, 03/22/18 Review of systems: Constitutional: Reports times when energy is low, but good most of the time. Denies high f dania, shaking chills, anorexia, nausea, vomiting, weight loss, or night sweats. Appetite w ithout changes. Ear, Nose, Mouth, Throat: Denies odynophagia, dysphagia, or tinnitus. Cardiovascular: Denies shortness of breath, dyspnea on exertion, chest pain, palpitations o r orthopnea. Respiratory: Denies cough, hemoptysis, or sputum production. Gastrointestinal: Denies abdominal pain, constipation, diarrhea, melena, or bright red bloo d per rectum. Genitourinary: Denies hematuria or dysuria. Musculoskeletal: Denies joint pain or tenderness. Neurologic: Reports headaches about 3/week takes Excedrin which usually is effective for pa in relief. Denies visual changes, or numbness/tingling of the extremities. Endocrine: Denies peripheral edema or heat/cold intolerance. Hematologic: Denies spontaneous bruising or bleeding. Integumentary: Denies rash, wounds or other skin concerns. Pain: Denies pain. Pain assessment: Location: NA Pain Level: PAIN PROG PAIN LEVEL: 0 Current Outpatient Prescriptions Medication Sig Dispense Refill acetaminophen (TYLENOL) 500 mg tablet Take 1,000 mg by mouth every 6 hours as needed. Calcium Carbonate-Vit D-Min (CALCIUM 600+D PLUS MINERALS) 600-400 MG-UNIT TABS Take 1 t ablet by mouth 2 times daily. ferrous sulfate 325 mg tablet Take 1 tablet by mouth Daily. phenytoin (DILANTIN) 100 mg ER capsule Take 1 capsule by mouth Daily. Take by mouth, 50 0 mg once daily on odd days, 600 mg once daily on even days pseudoePHEDrine (SUDOGEST) 30 mg tablet Take 1 tablet by mouth every 6 hours as needed. topiramate (TOPAMAX) 100 mg tablet Take 2 tablets by mouth 2 times daily. Zinc 30 MG TABS Take 1 tablet by mouth Daily. No current facility-administered medications for this encounter. Allergies Allergen Reactions Levetiracetam Other (See Comments) Unclear if the psychosis was truly due to the Keppra or another cause, but symptoms resolv ed after stopping Keppra Clindamycin Rash Intolerance No active intolerances/contraindications There were no vitals filed for this visit. Wt Readings from Last 3 Encounters: 11/29/17 82.3 kg (181 lb 7 oz) 11/25/17 82.6 kg (182 lb 1.6 oz) 11/18/17 82.9 kg (182 lb 12.2 oz) Physical Exam: General: Healthy appearing man in no acute medical distress. KPS: 90 HEENT: Pupils equal, round and reactive to light. No conjunctival icterus or injection. EOM I. Oral, moist mucus membranes. Lymphatic: No cervical, supraclavicular or axillary lymphadenopathy. Cardiovascular: Regular rate and rhythm, no murmur. Pulmonary: Breath sounds heard throughout, no adventitial sounds or increased work of breat penny at rest. Extremities: Upper and lower extremities warm and well perfused with no upper or lower extr emity edema. Neurologic: Alert, oriented and appropriated in conversation. CN II-IX grossly intact. Move s all 4 extremities normally with normal gait. Strength 5/5 bilateral divider operator. Psychiatric: Appropriate. Labs: 03/11/18 WHITE CELL COUNT 5.5 K/cu mm RED CELL COUNT 4.03 M/cu mm HEMOGLOBIN 14 13.5 - 17.5 g/dL HEMATOCRIT 41.1 % MCV 102 fL MCH 35 pg MCHC 34 g/dL PLATELET COUNT 144 K/cu mm NEUTROPHIL % 61 % LYMPHOCYTE % 27.9 % MONOCYTE % 7.9 % EOS % 1.9 % BASO % 1.3 % RDW 14.6 GLUCOSE, PLASMA (LAB) 85 65 - 110 mg/dL BUN, PLASMA (LAB) 14 mg/dL CREATININE PLASMA (LAB) 0.9 mg/dL TOTAL PROTEIN, PLASMA (LAB) 7 g/dL ALBUMIN, PLASMA (LAB) 4.6 g/dL CALCIUM, PLASMA (LAB) 9.6 mg/dL BILIRUBIN TOTAL 0.3 Transcutaneous Bilirubinometer ALK PHOS 143 U/L AST(SGOT) 18 U/L SODIUM, PLASMA (LAB) 142 mmol/L POTASSIUM, PLASMA (LAB) 4 mmol/L CHLORIDE, PLASMA (LAB) 108 mmol/L TOTAL CO2, PLASMA (LAB) 20 mmol/L ALT (SGPT) 22 Imaging: UNENHANCED AND ENHANCED BRAIN MRI 01/20/2018 FINDINGS: Changes of high right frontoparietal craniotomy and tumor resection are again apparent. Lobulated, expanded gyriform appearing heterogeneously enhancing regions predominantly along the superior and posterior margins of the resection cavity are more conspicuous and larger compared with imaging of November 25. This measures up to maximal transverse dimension of approximately 1.5 cm, compared to 0.9 cm previously. Confluent T2/FLAIR hyperintensity at the resection site and extending anteriorly and posteriorly in the mesial right frontal and parietal lobes, and also through the body of the corpus callosum into the white matter along the superior margin of the body of the left lateral ventricle is stable along with mild, heterogeneous signal alteration anterior and posterior to the resection cavity on the diffusion-weighted images and ADC map, and scattered low signal foci on the susceptibility weighted images, likely reflecting blood products related to previous instrumentation in combination with tumoral microhemorrhage. Some ex vacuo dilation of the body of the right lateral ventricle is again apparent, with deviation of the adjacent septum pellucidum to the left. No other mass effect is apparent. The ventricles are otherwise unremarkable along with the brainstem and cerebellum. No extra-axial abnormality is apparent. The paranasal sinuses, orbits, sellar region, basilar cisterns and osseous structures are otherwise unremarkable. Major intracranial vessels and dural sinuses appear patent and grossly unremarkable. IMPRESSION - 1. PROGRESSIVE LOBULATED, EXPANDED GYRIFORM APPEARING REGIONS OF HETEROGENEOUS ENHANCEMENT IN THE MESIAL RIGHT FRONTAL AND PARIETAL LOBES EXTENDING FROM THE MARGINS OF THE RESECTION CAVITY COMPARED WITH IMAGING OF NOVEMBER 25, SUSPICIOUS FOR PROGRESSIVE MALIGNANCY. THERE IS SIMILAR CONFLUENT T2/FLAIR HYPERINTENSITY SURROUNDING THE RESECTION CAVITY, ENCOMPASSING THE REGIONS OF SUSPICIOUS ENHANCEMENT, AND EXTENDING THROUGH THE CORPUS CALLOSUM INTO THE LEFT PERIVENTRICULAR WHITE MATTER, LIKELY REFLECTING A COMPONENT OF GLIOSIS AND EDEMA. THERE IS NO SIGNIFICANT MASS EFFECT. Dictated and Signed by: Eber Chavarria MD Images reviewed personally and compare to priors in 08/2017 and 11/2017. Very similar enhanc ement pattern and edema (T2/FLAIR). Heterogeneous enhancement may be slightly more prominen t. Findings likely consistent with pseudo-progression, postradiation. Today's 03/22/18 MRI al so appears similar with potentially less enhancement, pending radiology report. Assessment: ICD-10-CM ICD-9-CM 1. 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 He has undergone bruno or subtotal resection/biopsy on 2 occasions (2008 and 2016). Prior (09/2009-12/2010) and rec ent (01/2017-08/2017) treatment with Temodar with recent progression on Temodar. Completed ra diation therapy alone with 50.4 Gy in 28 fractions on 11/29/17. Continues on adjuvant Lomust ine chemotherapy. Ortiz tolerated radiation treatment quite well. He continues to have mild fatigue, otherwi se does not indicate any lasting side effects from radiation treatment. He is tolerating ch emotherapy very well. Continues to be monitored by [facility]. No focal neurologic deficits, no symptoms of disease activity. Plan: -Follow-up on radiology interpretation from today's MRI. -He should continue to follow-up with [facility] with ongoing lomustine as directed. -Return to clinic in 3 months. -Anticipate MRI imaging approximately every 3 months, untill stability. [facility] currently man aging MRI ordering. Thank you for allowing me to participate in the care of Ortiz Chatman. If you should hav e any questions regarding this evaluation, please do not hesitate to contact me. Maddy Feldman M.D. Radiation Oncologist Department of Radiation Oncology [facility] Office: [phone] CC: Patient Care Team: Physician No as PCP - General Lavell Wallace MD ([facility]) Maddy Gonzalez MD as Physician (Radiation Oncology) Alicia Sweet (Neurosurgery) Neville Miranda MD (Neurology) MICHELE Herrera as Nurse Practitioner (Family Nurse Practitioner) in this encounter Plan of Treatment +--------+ + + + + | Date | Type | Specialty | Care Team | Description | +--------+ + + + + | 06/24/ | Appointment | Radiation Oncology | Maddy Gonzalez | | | 2018 | | | MD [address] | | | | | | [place] | | | | | | [address] | | | | | | | | +--------+ + + + + as of this encounter Visit Diagnoses + + | Diagnosis | + + | Glioma (HCC) - Primary | + +"
--- OUTSIDE RECORDS SUMMARY | ~2018-05-08 | XMS | Clinical Summary ---
Demographics + + + | Address | [address] | | | [place] [address] | + + + | Home Phone | | + + + | Preferred Language | Unknown | + + + | Marital Status | Single | + + + | Advent Affiliation | NON | + + + [...] Team Providers + +------+ + | Care Cloth Doffer Name | Role | Phone | + +------+ + | Tony Emmanuel MD | PP | | + +------+ + Source Comments JAYRO is fully live on both [facility] Ambulatory and [facility] InPatient.[facility] Allergies + + + + + + [...] | | | | | | | ([facility]) | nausea/vomiting. | | | | | [...] | | | | | | | ([facility]) | | | | | | | [...] resection. Last Assessment & Plan: -transfer to [facility], | | intermediate level of care, q4h [...] -Arose 02/2010 while he was living in [place] | | -Topomax was started at that [...] + + + + | Pulmonary embolism ([facility]) | 09/11/19 | | | | 14 | 7 | + + + + | Hypernatremia | 09/11/19 | | | | 14 | 7 | + + + + | JOSTIN (acute kidney injury) ([facility]) | 09/05/19 | | | | 14 [...] | | | 2017 | | | CREATIVE INTERN | | +--------+ + + + + | 03/17/ | Telephone | | Magy Samuels RN | Care Coordination | | 2017 | | | | | +--------+ + + + + | 03/17/ | Time Study Clerk | | Geno Veras, | Mixed | | 2017 | | | CREATIVE INTERN | oligoastrocytoma | | | | | [...] | | | 2017 | | | CREATIVE INTERN | | +--------+ + + + + [...] | | 2017 | Visit | | FRETTED INSTRUMENT REPAIRER | epilepsy (HCC) | | | | [...] | | 2017 | | | R, CREATIVE INTERN | | +--------+ + + + + [...] | | | 2017 | | | CREATIVE INTERN | | +--------+ + + + + [...] | 2017 | Visit | | [address] [facility] | | | | | | [address] | | | | | | [place], [place] | | | | | | [address] | | | | | | [phone] | | | | | | | [...] | | | | | | | [id number]: Qty: 10 | | | | | | | | on 10/14/2016 by Kee, | | | | | | | | MD Alicia | | | | | | | + +------+------+ +--------+--------+--------+ | Plate Bone .5mm | | | SYN[facility]ES [facility] | | | 421.52 | | Craniomaxillofacial Titanium | | | | | | 2 / / | | 6 Hole Strut Low Profile | | | | | | | | Nonsterile - | | | | | | | | [id number]: Qty: 3 on | | | | | | | | 10/14/2016 by Alicia Sweet, | | | | | | | | MD | | | | | | | + +------+------+ +--------+--------+--------+ | Graft Soft Tissue 3x3in | | | [employer] | | 05/15/ | [id number] | | Duragen Plus Cranial Dura | | | LIFESCIENCE | | 2018 | / | | Bovine Collagen Matrix Patch | | | S | | | /[id number] | | Resorbable Suturable - | | | | | | 61 | | [id number]: Qty: 1 on | | | | [...] | | | | | | | [id number]: Kee | | | | | | [...] | (NA,K,CL,CO2,BUN,CRE | | PDT | epilepsy ([facility]) | results section. | | AT,GLUC,CA,AST,ALT,B | [...] | | | | PDT | epilepsy ([facility]) | results section. | + +--------+ + [...] | | | | ERCIK | + +-------+ + + | HEMATOCRIT [...] [address] | [place], [place] | [phone] | | [place] | | | | [...] - | [address] | [place], [place] | [phone] | | [place] | | | | + + + + + CBC AND AUTO DIFF (03/04/2018 1:54 PM) + + + + + | Component | Value | Ref Range | Performed At | + + + + + | WHITE CELL COUNT | 4.91 | 3.50 - 10.80 K/cu mm | [facility] | | | | | SERVICES, | | | | | [facility] | [facility] + | | | | | HEAL[facility] | + + + + + | RED CELL COUNT | 4.17 (L) | 4.50 - 6.00 M/cu mm | [facility] | | | | | SERVICES, [...] | 0.00 - 0.10 K/cu mm | [facility] | | | | | SERVICES, [...] Lymphocyte % in effect January 27, | [facility] | | 2018. | LABORATORY | | | SERVICES, | | | [facility] | | | [facility]ALTH + | | | HEALING | + + + + + + + + | Performing | Address | City/State/Zipcode | Phone Number | | Organization | | | | + + + + + | [facility] | [address] | [place] [address] | | | [facility] | | | | | HEALTH + HEALING | | | | + + + + + LYMPHOCYTE QUANTITATION (T,B AND NK), BLOOD (03/04/2018 1:54 PM) + +-------+ + + | Component | Value | Ref Range | Performed At | + +-------+ + + | CD3% (TOTAL T CELLS) | 75.5 | 49.0 - 85.0 % | [facility] | | | | | SERVICES, | | | | | SPECIAL IMM + | | | | | COAG | + +-------+ + + | CD3 (TOTAL T CELLS) | 1,012 | 411-2,061 /cu mm | [facility] | | | | | SERVICES, | | | | | SPECIAL IMM + | | | | | COAG | + +-------+ + + | CD4 % (T HELPER | 44.9 | 26.0 - 61.0 % | [facility] | | CELLS) | | | [...] | and its performance characteristics determined by [facility] | | | laboratories. It has not [...] | + + + + + | [facility] | [address] | [place] [address] | | | SERVICES, SPECIAL | PARK [...] dizziness.Performed by | | | | | [facility] | | | | | [address], [facility] | | | | | [address] | | | | | [phone].[facility]. | | | | | [facility], Anuj Harden MD, | | | | | Lab. Director | | | + + + + + + + | Specimen | + + | Blood - Blood | + + + + + + + | Performing | Address | City/State/Zipcode | Phone Number | | Organization | | | | + + + + + | [facility] | [address] | [place], [place] | | | [facility] | | [address] | | + + + + + [...] [facility] | [address] | [place] [address] | | | SERVICES, CORE | NETTIE [...] | REFERENCE LAB | | performed by: [facility] [address], [place] | | | [address] | | | | | |Test performed by: | | |[employer] | | |[address] | | |[place], [place] [address] | | + + + + + [...] | re | [address] | [place] [address] | | | B | | | [...] | 1975 | [phone] | [place] [address] | | | raffaele | | | [address]16 | | + +--------+ +--------+ + +
--- OUTSIDE RECORDS SUMMARY | ~2018-05-08 | XMS | Encounter Summary ---
Demographics + + + | Address | [address] | | | [place] [address] | + + + | Home Phone | | + + + | Preferred Language | Unknown | + + + | Marital Status | Single | + + + | Zoroastrianism Affiliation | NON | + + + | Race | White | + + + | Ethnic Group | Not or | + + + Author + + + | Author | [facility] | + + + | Organization | [facility] | + + + | Address | Unknown | + + + | Phone | Unavailable | + + + Support + + +---------+ + | Name | Relationship | Address | Phone | + + +---------+ + | Vi Chatman | ECON | Unknown | | + + +---------+ + Care Team Providers + +------+ + | Care Manager Perioperative Name | Role | Phone | + +------+ + | Tony Emmanuel MD | PCP | | + +------+ + Reason for Visit + + + | Reason | Comments | + + + | Refill Request | | + + + Encounter Details +--------+--------+ + + + | Date | Type | Department | Care Team | Description | +--------+--------+ + + + | 02/26/ | Refill | Neurology at | Wanda Miranda, | Refill Request | | 2018 | | [facility] & | [address] | | | | | Healing [address] | | | | | [place] Mail Code: | [place], [place] | | | | | [facility] [place] [facility] | [address] | | | | | Health and Healing, | [phone] | | | | | 8th floor [place], | | | | | | [place] [address] | | | | | | [phone] | | | +--------+--------+ + + + Social History + + [...] [address] | | | | | | [place] | | | | | | [address] | | | | | | [phone] | | | | | | | | +--------+---------+ + + + as of this encounter Visit Diagnoses Not on filein this encounter"
--- OUTSIDE RECORDS SUMMARY | ~2018-05-08 | XMS | Encounter Summary ---
Demographics + + + | Address | [address] | | | [place] [address] | + + + | Home Phone [...] Author + + + | Author | [facility] | + + + | Organization | [facility] | + + + | Address | Unknown | + + + | Phone | Unavailable | + + + Support + + +---------+ + | Name | Relationship | Address | Phone | + + +---------+ + | Vi Chatman | ECON | Unknown | | + + +---------+ + Care Team Providers + +------+ + | Care Tool Setter Apprentice Name | Role | Phone | + [...] [address] | | | | | | [place], [place] | | | | | | [address] | | | | | | [phone] | | | +--------+ + + + [...] Rd | | | | | | [place], [place] | | | | | | [address] | | | | | | [phone] | | | | | | | | +--------+---------+ + + + as of this encounter Visit Diagnoses Not on filein this encounter"
--- OUTSIDE RECORDS SUMMARY | ~2018-05-08 | XMS | Encounter Summary ---
Demographics + + + | Address | [address] | | | [place] [address] | + + + | Home Phone | | + + + | Preferred Language | Unknown | + + + | Marital Status | Single | + + + | Adventist Affiliation | NON | + + + | Race | White | + + + | Ethnic Group | Not or | + + + Author + + + | Author | [facility] | + + + | Organization | [facility] | + + + | Address | Unknown | + + + | Phone | Unavailable | + + + Support + + +---------+ + | Name | Relationship | Address | Phone | + + +---------+ + | Vi Chatman | ECON | Unknown | | + + +---------+ + Care Team Providers + +------+ + | Care Escapement Maker Name | Role | Phone | + +------+ + | Tony Emmanuel MD | PCP | | + +------+ + Encounter Details +--------+ + + + + | Date | Type | Department | Care Team | Description | +--------+ + + + + | 03/17/ | Supply And Distribution Manager | Neurologic | Geno Veras, | Mixed | | 2018 | | Oncology at | TEAR DOWN MAN [address] | oligoastrocytoma | | | | [address] | [address] | (HCC) (Primary Dx); | | | | [address] | [place], [place] | Encounter for | | | | [address] | [address] | antineoplastic | | | | Mailcode: L[address] | [phone] | chemotherapy | | | | [address] | | | | | | [place], [place] | | | | | | [address] | | | | | | [phone] | | | +--------+ + + + [...] | | +--------+---------+ + + + | 11/21/ | Office | Neurology | Wanda Miranda, | | | 2017 | Visit | | [address] | | | | | | [address] | | | | | | [place], [place] | | | | | | [address] | | | | | | [phone] | | | | | | | | +--------+---------+ + + + as of this encounter Visit Diagnoses + + | Diagnosis | + + | Mixed oligoastrocytoma (HCC) - Primary | + + | Malignant neoplasm of brain, unspecified site | + + | Encounter for antineoplastic chemotherapy | + +"
--- OUTSIDE RECORDS SUMMARY | ~2018-05-08 | XMS | Encounter Summary ---
Demographics + + + | Address | [address] | | | [place] [address] | + + + | Home Phone | | + + + | Preferred Language | Unknown | + + + | Marital Status | Single | + + + | Caodaism Affiliation | NON | + + + | Race | White | + + + | Ethnic Group | Not or | + + + Author + + + | Author | [facility] | + + + | Organization | [facility] | + + + | Address | Unknown | + + + | Phone | Unavailable | + + + Support + + +---------+ + | Name | Relationship | Address | Phone | + + +---------+ + | Vi Chatman | ECON | Unknown | | + + +---------+ + Care Team Providers + +------+ + | Care Insole Coverer Name | Role | Phone | + [...] [address] | | | | | | [place], [place] | | | | | | [address] | | | | | | [phone] | | | +--------+ + + + [...] Rd | | | | | | [place], [place] | | | | | | [address] | | | | | | [phone] | | | | | | | | +--------+---------+ + + + as of this encounter Visit Diagnoses Not on filein this encounter"
--- OUTSIDE RECORDS SUMMARY | ~2018-05-08 | XMS | Encounter Summary ---
Demographics + + + | Address | [address] | | | [place] [address] | + + + | Home Phone | | + + + | Preferred Language | Unknown | + + + | Marital Status | Single | + + + | Denominational Affiliation | NON | + + + | Race | White | + + + | Ethnic Group | Not or | + + + Author + + + | Author | [facility] | + + + | Organization | [facility] | + + + | Address | Unknown | + + + | Phone | Unavailable | + + + Support + + +---------+ + | Name | Relationship | Address | Phone | + + +---------+ + | Vi Chatman | ECON | Unknown | | + + +---------+ + Care Team Providers + +------+ + | Care Pharmaceutical Sales Specialist Name | Role | Phone | + +------+ + | Tony Emmanuel MD | PCP | | + +------+ + Encounter Details +--------+ + + + + | Date | Type | Department | Care Team | Description | +--------+ + + + + | 03/30/ | Pharmacy | Outpatient Retail | | | | 2018 | Visit | [facility] | | | | | | [address] | | | | | | [facility] | | | | | | [place], [place] | | | | | | [address] | | | +--------+ + + + [...] | 2017 | Visit | | [address] [facility] | | | | | | [address] | | | | | | [place], [place] | | | | | | [address] | | | | | | [phone] | | | | | | | | +--------+---------+ + + + as of this encounter Visit Diagnoses Not on filein this encounter"
--- OUTSIDE RECORDS SUMMARY | ~2018-05-08 | XMS | Encounter Summary ---
Demographics + + + | Address | [address] | | | [place] [address] | + + + | Home Phone | | + + + | Preferred Language | Unknown | + + + | Marital Status | Single | + + + | Buddhism Affiliation | NON | + + + [...] Team Providers + +------+ + | Care Automatic Driller And Reamer Name | Role | Phone | + +------+ + | Tony Emmanuel MD | PCP | | + +------+ + Encounter Details +--------+ + + + + | Date | Type | Department | Care Team | Description | +--------+ + + + + | 03/14/ | Telephone | Neurologic | Geno Veras, | | | 2018 | | Oncology at | FLAT POLISHER [address] | | | | | [address] | [address] | | | | | [address] | [place], [place] | | | | | [facility] | [address] | | | | | Mailcode: [address] | [phone] | | | | | [address] | | | | | | [place], [place] | | | | | | [address] | | | | | | [phone] | | | +--------+ + + + [...] [address] | | | | | | [place], [place] | | | | | | [address] | | | | | | [phone] | | | | | | | | +--------+---------+ + + + as of this encounter Visit Diagnoses Not on filein this encounter"
--- OUTSIDE RECORDS SUMMARY | ~2018-05-08 | XMS | Encounter Summary ---
Demographics + + + | Address | [address] | | | [place] [address] | + + + | Home Phone | | + + + | Preferred Language | Unknown | + + + | Marital Status | Single | + + + | Yazidism Affiliation | NON | + + + [...] Team Providers + +------+ + | Care Dollyman Name | Role | Phone | + [...] | | | [address] | [place], [place] | | | | | [facility] | [address] | | | | | Mailcode: [address] | | | | | | [address] | | | | | | [place], [place] | | | | | | [address] | | | | | | [phone] | | | +--------+ + + + [...] [address] | | | | | | [place], [place] | | | | | | [address] | | | | | | [phone] | | | | | | | | +--------+---------+ + + + as of this encounter Visit Diagnoses Not on filein this encounter"
--- OUTSIDE RECORDS SUMMARY | ~2018-05-08 | XMS | Encounter Summary ---
Demographics + + + | Address | [address] | | | [place] [address] | + + + | Home Phone | | + + + | Preferred Language | Unknown | + + + | Marital Status | Single | + + + | Catholic Affiliation | NON | + + + | Race | White | + + + | Ethnic Group | Not or | + + + Author + + + | Author | [facility] | + + + | Organization | [facility] | + + + | Address | Unknown | + + + | Phone | Unavailable | + + + Support + + +---------+ + | Name | Relationship | Address | Phone | + + +---------+ + | Vi Chatman | ECON | Unknown | | + + +---------+ + Care Team Providers + +------+ + | Care Clock Assembler Name | Role | Phone | + [...] [address] | | | | | | [place], [place] | | | | | | [address] | | | | | | [phone] | | | +--------+ + + + [...] Rd | | | | | | [place], [place] | | | | | | [address] | | | | | | [phone] | | | | | | | | +--------+---------+ + + + as of this encounter Visit Diagnoses Not on filein this encounter"
--- OUTSIDE RECORDS SUMMARY | ~2018-05-08 | XMS | Encounter Summary ---
Demographics + + + | Address | [address] | | | [place] [address] | + + + | Home Phone | | + + + | Preferred Language | Unknown | + + + | Marital Status | Single | + + + | Baptism Affiliation | NON | + + + | Race | White | + + + | Ethnic Group | Not or | + + + Author + + + | Author | [facility] | + + + | Organization | [facility] | + + + | Address | Unknown | + + + | Phone | Unavailable | + + + Support + + +---------+ + | Name | Relationship | Address | Phone | + + +---------+ + | Vi Chatman | ECON | Unknown | | + + +---------+ + Care Team Providers + +------+ + | Care Manager Financial Planning Name | Role | Phone | + [address] | | | | | | [facility] | | | | | | [place], [place] | | | | | | [address] | | | +--------+ + + + [...] | 2017 | Visit | | [address] [facility] | | | | | | [address] | | | | | | [place], [place] | | | | | | [address] | | | | | | [phone] | | | | | | | | +--------+---------+ + + + as of this encounter Visit Diagnoses Not on filein this encounter"
--- OUTSIDE RECORDS SUMMARY | ~2018-05-08 | XMS | Encounter Summary ---
Demographics + + + | Address | [address] | | | [place] [address] | + + + | Home Phone [...] Author + + + | Author | [facility] | + + + | Organization | [facility] | + + + | Address | Unknown | + + + | Phone | Unavailable | + + + Support + + +---------+ + | Name | Relationship | Address | Phone | + + +---------+ + | Vi Chatman | ECON | Unknown | | + + +---------+ + Care Team Providers + +------+ + | Care Director Instructional Material Name | Role | Phone | + [...] | | | [address] | [place], [place] | | | | | [facility] | [address] | | | | | Mailcode: [address] | [phone] | | | | | [facility] | | | | | | [place], [place] | | | | | | [address] | | | | | | [phone] | | | +--------+ + + + [...] [address] | | | | | | [place], [place] | | | | | | [address] | | | | | | [phone] | | | | | | | [...] + + | [facility] - | [address] | [place] | [phone] | | [place] | | | | + + + + + in this encounter Visit Diagnoses Not on filein this encounter"
--- OUTSIDE RECORDS SUMMARY | ~2018-05-08 | XMS | Encounter Summary ---
Demographics + + + | Address | [address] | | | [place] [address] | + + + | Home Phone | | + + + | Preferred Language | Unknown | + + + | Marital Status | Single | + + + | Protestant Affiliation | NON | + + + | Race | White | + + + | Ethnic Group | Not or | + + + Author + + + | Author | [facility] | + + + | Organization | [facility] | + + + | Address | Unknown | + + + | Phone | Unavailable | + + + Support + + +---------+ + | Name | Relationship | Address | Phone | + + +---------+ + | Vi Chatman | ECON | Unknown | | + + +---------+ + Care Team Providers + +------+ + | Care Customer Service Technician Name | Role | Phone | + +------+ + | Tony Emmanuel MD | PCP | | + +------+ + Encounter Details +--------+ + + + + | Date | Type | Department | Care Team | Description | +--------+ + + + + | 03/21/ | Telephone | Neurologic | Geno Veras, | | | 2018 | | Oncology at | BENCH REPAIR TECHNICIAN [address] | | | | | [facility] | [address] | | | | | [address] | [place], [place] | | | | | [facility] | [address] | | | | | Mailcode: [address] | [phone] | | | | | [facility] | | | | | | [place], [place] | | | | | | [address] | | | | | | [phone] | | | +--------+ + + + [...] [address] | | | | | | [place], [place] | | | | | | [address] | | | | | | [phone] | | | | | | | | +--------+---------+ + + + as of this encounter Visit Diagnoses Not on filein this encounter"
--- OUTSIDE RECORDS SUMMARY | ~2018-05-08 | XMS | Encounter Summary ---
Demographics + + + | Address | [address] | | | [place] [address] | + + + | Home Phone [...] Author + + + | Author | [facility] | + + + | Organization | [facility] | + + + | Address | Unknown | + + + | Phone | Unavailable | + + + Support + + +---------+ + | Name | Relationship | Address | Phone | + + +---------+ + | Vi Chatman | ECON | Unknown | | + + +---------+ + Care Team Providers + +------+ + | Care Proofsheet Corrector Name | Role | Phone | + [...] | | | [address] | [place], [place] | | | | | [facility] | [address] | | | | | Mailcode: [address] | | | | | | [facility] | | | | | | [place], [place] | | | | | | [address] | | | | | | [phone] | | | +--------+ + + + [...] [address] | | | | | | [place] | | | | | | [address] | | | | | | [phone] | | | | | | | | +--------+---------+ + + + as of this encounter Visit Diagnoses Not on filein this encounter"
--- OUTSIDE RECORDS SUMMARY | ~2018-05-08 | XMS | Encounter Summary ---
Demographics + + + | Address | [address] | | | [place] [address] | + + + | Home Phone | | + + + | Preferred Language | Unknown | + + + | Marital Status | Single | + + + | Restoration Affiliation | NON | + + + | Race | White | + + + | Ethnic Group | Not or | + + + Author + + + | Author | [facility] | + + + | Organization | [facility] | + + + | Address | Unknown | + + + | Phone | Unavailable | + + + Support + + +---------+ + | Name | Relationship | Address | Phone | + + +---------+ + | Vi Chatman | ECON | Unknown | | + + +---------+ + Care Team Providers + +------+ + | Care Chief Compressor Station Engineer Name | Role | Phone | [...] | | antineoplastic | | | | [place], [place] | | chemotherapy | | | | [address] | | | | | | [phone] | | | +--------+---------+ + + + [...] with a new brain MRI Continue CCNU nut picker at pharmacy today Continue weekly labs in this encounter Progress Notes Geno Veras NP - 03/30/2018 1:00 PM PDTFormatting of this note may be different from the original. Neuro Oncology Clinic 03/30/2018 Reason for Visit: Tumor follow up. History of Present Illness: Mr. Chatman initially presented in 07/24 with several months of seizures. He was seen in [facility] ED in [place], [place]. CT showed a R frontal mass with midline shift. MRI at [facility] showed a 8.7b3b2au T2 bright mass centered in the superior [...] (181 lb) | SpO2 98% | B WI 26.73 kg/(m^2) General: Affect: normal HEENT: Pupils [...] Continue CCNU 90 mg/m2 call when you nut picker CCNU to discuss start date please Request lab results from 03/25/2018 I have verified with the patient the HPI, ROS, allergies and medication documented above by MICHELE Herrera. I have reviewed the scribed A & P and I agree. Hermelindo Ibanez MD Plant Sciences Professor Neuro Oncology/Blood Brain Barrier Program [phone] in this encounter Plan of Treatment +--------+---------+ [...] Rd | | | | | | [place], [place] | | | | | | [address] | | | | | | [phone] | | | | | | | [...]
--- OUTSIDE RECORDS SUMMARY | ~2018-05-08 | XMS | Encounter Summary ---
Demographics + + + | Address | [address] | | | [place] [address] | + + + | Home Phone | | + + + | Preferred Language | Unknown | + + + | Marital Status | Single | + + + | Bahai Affiliation | NON | + + + | Race | White | + + + | Ethnic Group | Not or | + + + Author + + + | Author | [facility] | + + + | Organization | [facility] | + + + | Address | Unknown | + + + | Phone | Unavailable | + + + Support + + +---------+ + | Name | Relationship | Address | Phone | + + +---------+ + | Vi Chatman | ECON | Unknown | | + + +---------+ + Care Team Providers + +------+ + | Care Call Center Rn Name | Role | Phone | + [...] | | [address] | [place], [place] | | | | | [facility] | [address] | | | | | Mailcode: [address] | | | | | | [facility] | | | | | | [place], [place] | | | | | | [address] | | | | | | [phone] | | | +--------+ + + + [...] [address] | | | | | | [place] | | | | | | [address] | | | | | | [phone] | | | | | | | | +--------+---------+ + + + as of this encounter Visit Diagnoses Not on filein this encounter"
--- OUTSIDE RECORDS SUMMARY | ~2018-05-08 | XMS | Encounter Summary ---
Demographics + + + | Address | [address] | | | [place] [address] | + + + | Home Phone [...] Team Providers + +------+ + | Care Dairy Clerk Name | Role | Phone | + +------+ + | Tony Emmanuel MD | PCP | | + +------+ + Encounter Details +--------+ + + + + | Date | Type | Department | Care Team | Description | +--------+ + + + + | 03/17/ | Cold Type Composing Machine Operator | Neurologic | Geno Veras, | Mixed | | 2018 | | Oncology at | VISCOSITY INSPECTOR [address] | oligoastrocytoma | | | | Homa Guerrero | [address] | (HCC) (Primary Dx); | | | | [address] | [place], [place] | Encounter for | | | | [address] | [address] | antineoplastic | | | | Mailcode: [id number] | [phone] | chemotherapy | | | | [facility] | | | | | | [place], [place] | | | | | | [address] | | | | | | [phone] | | | +--------+ + + + [...] Rd | | | | | | [place], [place] | | | | | | [address] | | | | | | [phone] | | | | | | | | +--------+---------+ + + + as of this encounter Visit Diagnoses + + | Diagnosis | + + | Mixed oligoastrocytoma (HCC) - Primary | + + | Malignant neoplasm of brain, unspecified site | + + | Encounter for antineoplastic chemotherapy | + +"
--- OUTSIDE RECORDS SUMMARY | ~2018-05-08 | XMS | Encounter Summary ---
Demographics + + + | Address | [address] | | | [place] [address] | + + + | Home Phone | | + + + | Preferred Language | Unknown | + + + | Marital Status | Single | + + + | Gnosticism Affiliation | NON | + + + [...] Team Providers + +------+ + | Care Battery Installer Name | Role | Phone | [...] Rd | | | | | | [place], [place] | | | | | | [address] | | | | | | [phone] | | | +--------+ + + + [...] Rd | | | | | | [place], [place] | | | | | | [address] | | | | | | [phone] | | | | | | | | +--------+---------+ + + + as of this encounter Visit Diagnoses Not on filein this encounter"
--- OUTSIDE RECORDS SUMMARY | ~2018-05-08 | XMS | Encounter Summary ---
Demographics + + + | Address | [address] | | | [place] [address] | + + + | Home Phone [...] Team Providers + +------+ + | Care Mop Maker Name | Role | Phone | [...] Refill Request | | 2018 | | [facility] & | [address] | | | | | Healing [address] | | | | | Odell Wills Mail Code: | [place], [place] | | | | | [facility] [place] for | [address] | | | | | Health and Healing, | [phone] | | | | | 8th floor [place], | | | | | | [place] [address] | | | | | | [phone] | | | +--------+--------+ + + + [...] [place] | | | | | | [address] | | | | | | [phone] | | | | | | | | +--------+---------+ + + + as of this encounter Visit Diagnoses Not on filein this encounter"
--- OUTSIDE RECORDS SUMMARY | ~2018-05-08 | XMS | Encounter Summary ---
Demographics + + + | Address | [address] | | | [place] [address] | + + + | Home Phone [...] Team Providers + +------+ + | Care Litigation Docket Manager Name | Role | Phone | [...] | | | [address] | [place], [place] | | | | | [facility] | [address] | | | | | Mailcode: [id number] | [phone] | | | | | Physicians [facility] | | | | | | [place], [place] | | | | | | [address] | | | | | | [phone] | | | +--------+ + + + [...] Rd | | | | | | [place], [place] | | | | | | [address] | | | | | | [phone] | | | | | | | [...] in this encounter Results NIXON, WITH DIFFERENTIAL (03/11/2018) + +-------+ + + | Component | Value | Ref Range | Performed At | + +-------+ + + | WHITE CELL COUNT | 5.5 | K/cu mm | [facility] | | | | | [place] | + +-------+ + + | RED CELL COUNT | 4.03 | M/cu mm | [facility] | | | | [place] | + +-------+ + + | HEMOGLOBIN | 14 | 13.5 - 17.5 g/dL | [facility] | | | | [place] | + +-------+ + + | HEMATOCRIT | 41.1 | % | [facility] | | | [place] | + +-------+ + + | MCV | 102 | fL | [facility] | | | [place] | + +-------+ + + | MCH | 35 | pg | [facility] | | | [place] | + +-------+ + + | MCHC | 34 | g/dL | [facility] | | | [place] | + +-------+ + + | PLATELET COUNT | 144 | K/cu mm | [facility] | | | [place] | + +-------+ + + | NEUTROPHIL % | 61 | % | [facility] | | | [place] | + +-------+ + + | LYMPHOCYTE % | 27.9 | % | [facility] | | | [place] | + +-------+ + + | MONOCYTE % | 7.9 | % | [facility] | | | [place] | + +-------+ + + | EOS % | 1.9 | % | [facility] | | | [place] | + +-------+ + + | BASO % | 1.3 | % | [facility] | | | [place] | + +-------+ + + | RDW | 14.6 | % | [facility] | [address] | [place] | [phone] | | [place] | | | | + + + + + in this encounter Visit Diagnoses Not on filein this encounter"
--- OUTSIDE RECORDS SUMMARY | ~2018-05-08 | XMS | Encounter Summary ---
Demographics + + + | Address | [address] | | | [place] [address] | + + + | Home Phone [...] Author + + + | Author | [facility] | + + + | Organization | [facility] | + + + | Address | Unknown | + + + | Phone | Unavailable | + + + Support + + +---------+ + | Name | Relationship | Address | Phone | + + +---------+ + | Vi Chatman | ECON | Unknown | | + + +---------+ + Care Team Providers + +------+ + | Care Cvor Nurse Name | Role | Phone | + [...] | | | | Phys[facility] | [facility] | | | | | [address] | [place], [place] | | | | | [facility] | [address] | | | | | Mailcode: [id number] | | | | | | Physicians [facility] | | | | | | [place], [place] | | | | | | [address] | | | | | | [phone] | | | +--------+ + + + [...] [address] | | | | | | [place] | | | | | | [address] | | | | | | [phone] | | | | | | | | +--------+---------+ + + + as of this encounter Visit Diagnoses Not on filein this encounter"
--- OUTSIDE RECORDS SUMMARY | ~2018-05-08 | XMS | Encounter Summary ---
Demographics + + + | Address | [address] | | | [place] [address] | + + + | Home Phone [...] Author + + + | Author | [facility] | + + + | Organization | [facility] | + + + | Address | Unknown | + + + | Phone | Unavailable | + + + Support + + +---------+ + | Name | Relationship | Address | Phone | + + +---------+ + | Vi Chatman | ECON | Unknown | | + + +---------+ + Care Team Providers + +------+ + | Care Armoring Machine Operator Name | Role | Phone [...] Rd | | | | | | [place], [place] | | | | | | [address] | | | | | | [phone] | | | +--------+ + + + [...] Rd | | | | | | [place], [place] | | | | | | [address] | | | | | | [phone] | | | | | | | | +--------+---------+ + + + as of this encounter Visit Diagnoses Not on filein this encounter"
--- OUTSIDE RECORDS SUMMARY | ~2018-05-08 | XMS | Encounter Summary ---
Demographics + + + | Address | [address] | | | [place] [address] | + + + | Home Phone [...] Team Providers + +------+ + | Care Change Manager Name | Role | Phone | [...] Rd | | | | | | [place], [place] | | | | | | [address] | | | | | | [phone] | | | +--------+ + + + [...] Rd | | | | | | [place], [place] | | | | | | [address] | | | | | | [phone] | | | | | | | | +--------+---------+ + + + as of this encounter Visit Diagnoses Not on filein this encounter"
--- OUTSIDE RECORDS SUMMARY | ~2018-05-08 | XMS | Encounter Summary ---
Demographics + + + | Address | [address] | | | [place] [address] | + + + | Home Phone | | + + + | Preferred Language | Unknown | + + + | Marital Status | Single | + + + | Buddhist Affiliation | NON | + + + | Race | White | + + + | Ethnic Group | Not or | + + + Author + + + | Author | [facility] | + + + | Organization | [facility] | + + + | Address | Unknown | + + + | Phone | Unavailable | + + + Support + + +---------+ + | Name | Relationship | Address | Phone | + + +---------+ + | Vi Chatman | ECON | Unknown | | + + +---------+ + Care Team Providers + +------+ + | Care Glacing Machine Tender Name | Role | Phone | [...] | | | [address] | [place], [place] | | | | | [facility] | [address] | | | | | Mailcode: [id number] | [phone] | | | | | Physicians [facility] | | | | | | [place], [place] | | | | | | [address] | | | | | | [phone] | | | +--------+ + + + [...] Rd | | | | | | [place], [place] | | | | | | [address] | | | | | | [phone] | | | | | | | [...] [address] | [place] | [phone] | | [place] | | | | + + + + + in this encounter Visit Diagnoses Not on filein this encounter"
--- OUTSIDE RECORDS SUMMARY | ~2018-05-08 | XMS | Encounter Summary ---
Demographics + + + | Address | [address] | | | [place] [address] | + + + | Home Phone | | + + + | Preferred Language | Unknown | + + + | Marital Status | Single | + + + | Adventist Affiliation | 1001 | + + + | Race | Unknown | + + + | Ethnic Group | Unknown | + + + Author + + + | Author | [facility] | | | and [place] | + + + | Organization | [facility] | | | [...] Team Providers + +------+ + | Care Marketing Liaison Name | Role | Phone | + [...] | | | | | | [place] [address] | | | | | | [phone] | | | +--------+ + + + [...] [address] | | | | | | [place] | | | | | | [address] | | | | | | | | +--------+ + + + + as of this encounter Visit Diagnoses Not on filein this encounter"
--- OUTSIDE RECORDS SUMMARY | ~2018-05-08 | XMS | Encounter Summary ---
Demographics + + + | Address | [address] | | | [place] [address] | + + + | Home Phone [...] Author + + + | Author | [facility] | + + + | Organization | [facility] | + + + | Address | Unknown | + + + | Phone | Unavailable | + + + Support + + +---------+ + | Name | Relationship | Address | Phone | + + +---------+ + | Vi Chatman | ECON | Unknown | | + + +---------+ + Care Team Providers + +------+ + | Care Patent Prosecution Attorney Name | Role | Phone | + [...] | | | | Phys[facility] | [facility] | | | | | [address] | [place], [place] | | | | | [facility] | [address] | | | | | Mailcode: [id number] | | | | | | Physicians [facility] | | | | | | [place], [place] | | | | | | [address] | | | | | | [phone] | | | +--------+ + + + [...] | | | | | | [address] | | | | | | [place] | | | | | | [address] | | | | | | [phone] | | | | | | | | +--------+---------+ + + + as of this encounter Visit Diagnoses Not on filein this encounter"
--- OUTSIDE RECORDS SUMMARY | ~2018-05-08 | XMS | Encounter Summary ---
Demographics + + + | Address | [address] | | | [place] [address] | + + + | Home Phone | | + + + | Preferred Language | Unknown | + + + | Marital Status | Single | + + + | Judaism Affiliation | 1001 | + + + | Race | Unknown | + + + | Ethnic Group | Unknown | + + + Author + + + | Author | [facility] | | | and [place] | + + + | Organization | [facility] | | | and [place] [...] Team Providers + +------+ + | Care Neon Glass Bender Name | Role | Phone | + [...] + + | 03/22/ | Hospital | [facility] | Maddy Gonzalez | Glioma (HCC) | | 2018 | Encounter | [facility] | MD Marcy [address] | (Primary Dx) | | | | [facility] | [place], [place] | | | | | [address] | [address] | | | | | [place] [address] | | | | | | [phone] | | | +--------+ + + + [...] November. Proceeded directly to additional chemotherapy at [facility], CCNU (Lomustine) 90mg /m2 every 6 we [...] topiramate 200 mg BID. Managed by the [facility] epilepsy clinic. No recent generalized seizures. MRI [...] normally with normal gait. 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 Psychiatric: Appropriate. Labs: 03/11/18 WHITE CELL [...] very well. Continues to be monitored by [facility]. No focal neurologic deficits, no symptoms of disease activity. Plan: -Follow-up on radiology interpretation from today's MRI. -He should continue to follow-up with [facility] with ongoing lomustine as directed. -Return to clinic in 3 months. -Anticipate MRI imaging approximately every 3 months, untill stability. [facility] currently man aging MRI ordering. Thank you for allowing me to participate in the care of Ortiz Chatman. If you should hav e any questions regarding this evaluation, please do not hesitate to contact me. Maddy Feldman M.D. Radiation Oncologist Department of Radiation Oncology [facility] Office: [phone] CC: Patient Care Team: Physician No as PCP - General Lavell Wallace MD ([facility]) Maddy Gonzalez MD as Physician (Radiation [...] [place] | | | | | | [address] | | | | | | | | +--------+ + + + + as of this encounter Visit Diagnoses + + | Diagnosis | + + | Glioma (HCC) - Primary | + +"
--- OUTSIDE RECORDS SUMMARY | ~2018-05-08 | XMS | Encounter Summary ---
Demographics + + + | Address | [address] | | | [place] [address] | + + + | Home Phone | | + + + | Preferred Language | Unknown | + + + | Marital Status | Single | + + + | Presybeterian Affiliation | NON | + + + [...] Team Providers + +------+ + | Care Graphics Specialist Name | Role | Phone | [...] | | | [address] | [place], [place] | | | | | [facility] | [address] | | | | | Mailcode: [id number] | [phone] | | | | | Physicians [facility] | | | | | | [place], [place] | | | | | | [address] | | | | | | [phone] | | | +--------+ + + + [...] Rd | | | | | | [place], [place] | | | | | | [address] | | | | | | [phone] | | | | | | | [...] + + | [facility] - | [address] | [place] | [phone] | | [place] | | | | + + + + + in this encounter Visit Diagnoses Not on filein this encounter"
--- OUTSIDE RECORDS SUMMARY | ~2018-05-08 | XMS | Encounter Summary ---
Demographics + + + | Address | [address] | | | [place] [address] | + + + | Home Phone | | + + + | Preferred Language | Unknown | + + + | Marital Status | Single | + + + | Moravian Affiliation | NON | + + + | Race | White | + + + | Ethnic Group | Not or | + + + Author + + + | Author | [facility] | + + + | Organization | [facility] | + + + | Address | Unknown | + + + | Phone | Unavailable | + + + Support + + +---------+ + | Name | Relationship | Address | Phone | + + +---------+ + | Vi Chatman | ECON | Unknown | | + + +---------+ + Care Team Providers + +------+ + | Care Bond Clerk Name | Role | Phone | [...] 2018 | | Oncology at | R, CULTURE MEDIA LABORATORY ASSISTANT [address] | | | | | Phys[facility] | [address] | | | | | [address] | [place], [place] | | | | | [facility] | [address] | | | | | Mailcode: [id number] | [phone] | | | | | [address] | | | | | | [place], [place] | | | | | | [address] | | | | | | [phone] | | | +--------+ + + + [...] Rd | | | | | | [place] | | | | | | [address] | | | | | | [phone] | | | | | | | | +--------+---------+ + + + as of this encounter Visit Diagnoses Not on filein this encounter"
--- OUTSIDE RECORDS SUMMARY | ~2018-05-08 | XMS | Encounter Summary ---
Demographics + + + | Address | [address] | | | [place] [address] | + + + | Home Phone [...] + + + | Author | [facility] | + + + | Organization | [facility] | + + + | Address | Unknown | + + + | Phone | Unavailable | + + + Support + + +---------+ + | Name | Relationship | Address | Phone | + + +---------+ + | Vi Chatman | ECON | Unknown | | + + +---------+ + Care Team Providers + +------+ + | Care Database Reporting Consultant Name | Role | Phone | [...] 2018 | | Oncology at | R, HEEL ATTACHER [address] | | | | | Physicians [facility] | [address] | | | | | [address] | [place], [place] | | | | | [facility] | [address] | | | | | Mailcode: [id number] | [phone] | | | | | Physicians [address] | | | | | | [place], [place] | | | | | | [address] | | | | | | [phone] | | | +--------+ + + + [...] Rd | | | | | | [place], [place] | | | | | | [address] | | | | | | [phone] | | | | | | | | +--------+---------+ + + + as of this encounter Visit Diagnoses Not on filein this encounter"
--- OUTSIDE RECORDS SUMMARY | ~2018-05-08 | XMS | Encounter Summary ---
Demographics + + + | Address | [address] | | | [place] [address] | + + + | Home Phone [...] Team Providers + +------+ + | Care Farmer [employer] Name | Role | Phone | + [...] Wend[address] | | | | | [address] | [place], [place] | | | | | [facility] | [address] | | | | | Mailcode: [id number] | | | | | | Physicians [facility]anda | | | | | | [place], [place] | | | | | | [address] | | | | | | [phone] | | | +--------+ + + + [...] Rd | | | | | | [place] | | | | | | [address] | | | | | | [phone] | | | | | | | | +--------+---------+ + + + as of this encounter Visit Diagnoses Not on filein this encounter"
--- OUTSIDE RECORDS SUMMARY | ~2018-05-08 | XMS | Encounter Summary ---
Demographics + + + | Address | [address] | | | [place] [address] | + + + | Home Phone | | + + + | Preferred Language | Unknown | + + + | Marital Status | Single | + + + | Tenriism Affiliation | NON | + + + [...] Team Providers + +------+ + | Care Colliery Clerk Name | Role | Phone | [...] Localization-related | | 2018 | Visit | [facility] & | ASH PIT WORKER [address] | epilepsy (HCC) | | | | Healing [address] | (Primary Dx); | | | | Odell Wills Mail Code: | [place], [place] | Vitamin D deficiency | | | | [facility] | [address] | | | | | [facility] and Healing, | [phone] | | | | | 8th floor [place], | | | | | | [place] [address] | | | | | | [phone] | | | +--------+---------+ + + + [...] input. 3. To cancel or reschedule appointments: [phone]. Please cancel or reschedule appointm ents at least 24 hours ahead of time. It's really helpful for other patients if you call, so we can get them in urgently. As a reminder from todays visit: For now, continue Dilantin as prescribed. I would advocate for a transition to Lacosamid e (Vimpat). I will review this with Dr. iMranda and let you know via [employer]. Continue Topamax 200mg twice per day. Labs today. Follow up with Dr. Miranda June 2018 Sincerely, Johanna Hyatt, Epilepsy DIRECTOR OF ACADEMIC SUPPORT If you have experienced a seizure or other type of spell that has affected your level of co nsciousness/alertness, you must refrain from driving, operating heavy machinery, climbing to heights, or swimming/taking baths unattended until you have been free of these seizures/spe lls for a period of 3 months if you live in the state of [place] and 6 months if you live in the state of [place]. You must be cleared by your physician and have a valid carrier driver's lic ense to be able to drive. Please bring a full list of current medications with you to your next appointment. The [facility] ([facility]) www.epilepsynw.org offers some local resources and [...] in this encounter Progress Notes Asha Hyatt, ASH PIT WORKER - 03/04/2018 1:10 PM PDTFormatting of this note may be different fr om the original. [facility] Follow Up Note: Reason for current clinic visit: The patient is here today with his parents for fci f ollow up care of his symptomatic [...] investigate. 3) I discussed some of the assistant terminal manager risks of phenytoin, including mild distal sensory [...] daily for maintenance therapy 6) Return to [facility] Ep[facility]psy Clinic to see Anushka Brooks DIRECTOR OF ACADEMIC SUPPORT in 3 months and to see me [...] time), gabapentin (used in combination with topiramate 3210-7444, discontinued in early 2015). . 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 Most recent MRI 01/2018 (see [facility] where) showed progression after 6 weeks of [...] living independently in his own apartment in [place] and has been functioning normally. Other than being more forgetful in recent years, he denies any apparent cognitive changes. 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 He was told not to drive until medically cleared by the ER physician treating him at that time. He parents report hernan t his driving skills seemed very adequate [...] together on that morning before returning to [facility] EEG that day. At the time [...] 911 martin l and transport to the [facility] ER, where a CT brain scan showed a mass in the right frontal lobe. He was loaded with IV fosphenytoin at that time and transported to [facility], where he was admitted to the [...] and loaded with 1g dilantin at the [facility] and transferred to [facility] for further care. He received an additional 500mg dila ntin on arrival to [facility]. No seizure activity during hospital stay. [...] increasingly severe insomnia, agitation, bizarre behavior, and lutheran delusion s. He was readmitted to neurosurgery [...] ty pe psychosis. He eventually moved to [place] for about a year in late 2009 and early 2010, du ring which time he remained seizure free, but developed recurrent sharp headaches. His neuro logist in [place] started him on topiramate co-therapy 100 mg [...] called 911 and he was transported to [facility] in [place] and then transferred to [facility]. He was found to have a [...] Q, ev entually switched to coumadin, but assistant terminal manager anticoagulation was not continued because of th [...] seizure free. 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 On [...] of his diabetes. At the time of ok s 03/19 clinic visit, Dr Lomas instructed him on getting back on his regimen of topiramate 100 mg BID and gabapentin 600 mg TID. On 04/14/16, a few weeks after he saw Dr Lomas in clinic, Ortiz had a cluster of complex partial seizures culminating in a witnessed tonic clonic seizure in the [facility] ER in [place]. He woke up that day not feeling right and called his dad when he found h imself having lost some time and feeling confused. He dad describes him as being quite confu sed on the phone and only able to repetitively state "I want to come home". His [facility] at the time and called to 911 [...] and had him transport ed to the [facility] ER. He was awake and coherent in [...] debulking of this t umor recurrence at [facility] on 10/14/16. The biopsy pathology showed [...] within a few weeks of his first [facility] Epi lepsy Clinic visit with me [...] lives independently in his own apartment in [place]. His parents live a few miles aware and remain supportive and involved in his life. He has a teenage son who does not live with him. His ex girlfriend and mother of this son still lives in [place]. He has an ODL, but has not [...] Neurodiagnostics: MRI brain w wo contrast (09/15/17, [facility]): IMPRESSION: There is no evidence of [...] MRI brain without and with contrast (05/13/17, [facility]) IMPRESSION: Compared to 02/10/17, stable residual mildly enhancing tumor along the right paramedian fron huong lobe without evidence of disease progression. MRI brain without and with contrast (07/01/16, [facility]): IMPRESSION: Findings highly suspicious for continued disease progression, with new enhancing foci in the right frontal lobe and right posterior parafalcine region. * numerous interim MRI studies (see reports in EPIC) MRI brain w / wo contrast (08/01/19, [facility]) IMPRESSION: T2 bright mass centered in [...] ) were seen. Edward Redman DO, MFA Cement Despatch Operator Department of Neurology Impression: 1) Treatment responsive [...] syndrome associated with diabetes mellitus secondary to fci m aintenance on dexamethasone from 2012 to 2015, now resolved with discontinuation of steroid therapy in mid 2015. A 1-2 month period of failure to thrive in January and February 2016 may have been related to coming off steroid therapy with transient iatrogenic Prairie's disease. 6) Anxiety/Depression. As part of routine [...] Electronically signed on 03/04/2018 by MICHELE Clarke. [facility] [place] this encounter Plan of Treatment +--------+---------+ + + + | Date | Type | Specialty | Care Team | Description | +--------+---------+ + + + | 06/30/ | Office | Neurology | | | | 2017 | Visit | | | | +--------+---------+ + + + | 07/06/ | Office | Neurology | Wanda Miranda, | | | 2017 | Visit | | [address] | | | | | | [address] | | | | | | [place], [place] | | | | | | [address] | | | | | | [phone] | | | | | | | [...] 15 | 6 - 20 mg/dL | [facility] | | | | | SERVICES, CORE | + +---------+ + + | CREATININE PLASMA | 0.85 | 0.70 - 1.30 mg/dL | [facility] | | (LAB) | | | SERVICES, CORE | + +---------+ + + | EGFR - | >60 | >60 mL/min | [facility] | | LUXEMBOURGER | | | SERVICES, CORE | + +---------+ + + | EGFR NON | >60 | >60 mL/min | [facility] | | -LUXEMBOURGER | | | SERVICES, CORE | + [...] 7.9 | 6.4 - 8.2 g/dL | [facility] | | PLASMA (LAB) | [...] | + + + + + | [facility] | [address] | [place] [address] | | | SERVICES, CORE | PARK [...] dizziness.Performed by | | | | | [employer],[address] | | | | | [address]onne Little, [facility] | | | | | [address] | | | | | [phone].[employer]. | | | | | Anuj driscoll [...] [facility] | [address] | [place], [place] | | | [facility] | | [address] | | + + + + + [...] | REFERENCE LAB | | performed by: [facility] [address], [place] | | | [address] | | | | | |Test performed by: | | |[facility] | | |[address] | | |[place] [address] | | + + + + + [...]
--- OUTSIDE RECORDS SUMMARY | ~2018-05-08 | XMS | Encounter Summary ---
Demographics + + + | Address | [address] | | | [place] [address] | + + + | Home Phone | | + + + | Preferred Language | Unknown | + + + | Marital Status | Single | + + + | Jehovah'S Witness Affiliation | NON | + + + | Race | White | + + + | Ethnic Group | Not or | + + + Author + + + | Author | [facility] | + + + | Organization | [facility] | + + + | Address | Unknown | + + + | Phone | Unavailable | + + + Support + + +---------+ + | Name | Relationship | Address | Phone | + + +---------+ + | iV Chatman | ECON | Unknown | | + + +---------+ + Care Team Providers + +------+ + | Care Glycerin Operator Name | Role | Phone | [...] | | | [address] | [place], [place] | | | | | [facility] | [address] | | | | | Mailcode: L603 | [phone] | | | | | Physicians Yolanda | | | | | | [place], [place] | | | | | | [address] | | | | | | [phone] | | | +--------+ + + + [...] [address] | | | | | | [place], [place] | | | | | | [address] | | | | | | [phone] | | | | | | | [...] [address] | [place] | [phone] | | [place] | | | | + + + + + in this encounter Visit Diagnoses Not on filein this encounter"
[~2018-05-08 14:23] MED LIST: AMOXICILLIN875 MG; DEMADEX10 MG PO; DEXAMETHASONE2 MG; DEXAMETHASONE2 MG PO; DILANTIN100 MG PO; FERROUS SULFAT325 MG PO; FLUDROCORTISON0.1 MG PO; GABAPENTIN600 MG PO; GLUCOPHAGE850 MG PO; HYDROCODON-ACE1 EAC3; IBUPROFEN800 MG; IRON18 MG PO; KETOCONAZOLE200 MG PO; LAMISIL250 MG PO; LEXAPRO10 MG; LORAZEPAM0.5 MG PO; LOSARTAN POTASS50 MG PO; METFORMIN HCL500 MG PO; NORCO 5-325 TA1 EACH PO; NORVASC5 MG PO; OMEPRAZOLE20 MG PO; OXYCODONE HCL5 MG PO; PERCOCET 5-3251 EACH PO; PHENYTOIN SODI100 MG PO; PHENYTOIN SODI300 MG PO; POTASSIUM CHLO10 MEQ PO; PRAVASTATIN SOD40 MG PO; PREDNISONE5 MG PO; TOPAMAX100 MG PO; TOPIRAMATE100 MG PO; TRAZODONE HCL50 MG PO; TYLENOL EXTRA500 MG PO; WARFARIN SODIU7.5 MG PO; WARFARIN SODIUM5 MG PO; XARELTO15 MG PO; ZOFRAN ODT4 MG PO
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
[2018-05-08] MEDS ORDERED: DEXAMETHASONE4 MG PO (14:35)
[2018-05-08] MEDS ORDERED: GLEOSTINE100 MG PO (14:35)
[2018-05-08] MEDS ORDERED: ONDANSETRON HCL8 MG PO (14:36)
== END 2018-05-08 15:30 | disposition home or self-care (01) ==
LOC: ED 14:23
DX: S16.1XXA Strain of muscle, fascia and tendon at neck level, initial encounter (principal); W22.8XXA Striking against or struck by other objects, initial encounter; Z88.1 Allergy status to other antibiotic agents; Z88.8 Allergy status to other drugs, medicaments and biological substances; Z79.899 Other long term (current) drug therapy
CPT/HCPCS: 72040; 99283

== ENCOUNTER 2019-06-07 17:34 | Observation (INO) | payer MEDICARE ==
[~2019-06-07] VITALS: Ht 175.3 cm; Wt 85.7 kg
[~2019-06-07 17:34] MED LIST changes: +DEXAMETHASONE4 MG PO; +GLEOSTINE100 MG PO; +ONDANSETRON HCL8 MG PO; +PROBIOTIC1 EAC1 PO
--- OUTSIDE RECORDS SUMMARY | 2019-06-07 17:36 | XMS ---
PreManage Notification: CHARLES MCALLISTER Security Multiple Wire Sawyer Events No recent Security Events currently on file CRITERIA MET - Group Notification CARE PROVIDERS Tony Emmanuel MD Primary Care Current PHONE: Unknown Sarah has no Care Guidelines for this patient. EMicha VISIT COUNT (12 MO.) 1 JULIA Meier TOTAL 1 NOTE: Visits indicate total known visits. ED/UCC VISIT TRACKING (12 MO.) 06/07/2019 17:[address] [facility] [place] TYPE: Emergency COMPLAINT: - NUMBNESS INPATIENT VISIT TRACKING (12 MO.) No inpatient visits to display in this time frame [id number]
--- NOTE | 2019-06-08 08:07 | EKG ---
[facility] [address] [place], [place] [address] Signed Normal sinus rhythm Normal ECG No previous ECGs available Confirmed by GARDENIA IGNACIO MD ([id number]) on 06/08/2019 8:07:33 AM Electronically Signed By: GARDENIA IGNACIO MD 06/08/19 0807 PATIENT NAME: CHARLES MCALLISTER Electrocardiogram DATE OF : 71 PHYSICIAN: GARDENIA IGNACIO MD REPORT #: [id number] REPORT IS CONFIDENTIAL AND NOT TO BE RELEASED WITHOUT AUTHORIZATION
[2019-06-08] MEDS ORDERED: PHENYTOIN SODI100 MG PO (09:51)
[2019-06-08] MEDS ORDERED: ALLEGRA ALLERG180 MG PO (10:02)
[2019-06-08] MEDS ORDERED: VITAMIN D5000 UNIT PO (10:03)
[2019-06-08] MEDS ORDERED: CLOPIDOGREL75 MG PO (15:51)
[2019-06-08] MEDS ORDERED: ASPIRIN EC81 MG PO (15:51)
== END 2019-06-08 16:35 | disposition home or self-care (01) ==
LOC: ED 17:34 → MS 17:35
PROVIDERS: ADMIT Internal Medicine
DX: I63.9 Cerebral infarction, unspecified (principal); G81.94 Hemiplegia, unspecified affecting left nondominant side; R20.0 Anesthesia of skin; R29.700 NIHSS score 0; Z85.841 Personal history of malignant neoplasm of brain; Z79.899 Other long term (current) drug therapy; Z88.8 Allergy status to other drugs, medicaments and biological substances; Z88.1 Allergy status to other antibiotic agents
CPT/HCPCS: 36415; 70450; 70553; 71045; 80053; 80185; 84484; 85025; 85610; 85730; 93005; 93010; 93880; 96360; 99285-25; A9579; G0378; J7030

== ENCOUNTER 2023-04-01 11:14 | Emergency (ER) | payer MEDICARE, OTHER ==
[~2023-04-01] VITALS: Ht 175.3 cm; Wt 85.0 kg
[~2023-04-01 11:14] MED LIST changes: +ALLEGRA ALLERG180 MG PO; +ASPIRIN EC81 MG PO; +CLOPIDOGREL75 MG PO; +COLACE100 MG PO; +FOLIC ACID1 MG PO; +IRON325 M1 PO; +VITAMIN B122500 MCG PO; +VITAMIN D5000 UNIT PO
--- OUTSIDE RECORDS SUMMARY | 2023-04-01 11:22 | XMS ---
PreManage Notification: CHARLES MCALLISTER Security Ice Hockey Coach Events No recent Security Events currently on file CRITERIA MET - Group Notification CARE PROVIDERS JOSESITO BECK [facility] Current PHONE: [phone] JOSESITO BECK Dentist: [employer] Pul[employer] 06/09/2019-Current PHONE: [phone] JOSESITO VELAZQUEZ 06/08/2019-Current PHONE: [phone] Sarah has no Care Guidelines for this patient. Care History Medical/Surgical 06/09/2019 [facility] - PATIENT HAS AN APT WITH DR BECK TO ESTABLISH CARE ON 07/07/19 @ 4:00PM AT [facility]. - PATIENT WAS PLACED ON THE CANCELLATION LIST - TO BE SEEN EARLIER IF POSSIBLE. - [facility] LEFT PATIENT A VM WITH THE INFORMATION AND PROVIDED MOM- PERSON TO NOTIFY OF THE APT WELL. E.D. VISIT COUNT (12 MO.) 1 JULIA Meier TOTAL 1 NOTE: Visits indicate total known visits. ED/UCC VISIT TRACKING (12 MO.) 04/01/2023 11:14 [facility] [place] TYPE: Emergency COMPLAINT: - POSS BLOODCLOT L LEG INPATIENT VISIT TRACKING (12 MO.) No inpatient visits to display in this time frame [id number]
[2023-04-01 12:23] LABS: BASOPHILS 0.7 % (0-2); EOSINOPHILS 3.3 % (0-6); HEMATOCRIT 40.6 % (35.0-50.0); HEMOGLOBIN 13.8 g/dL (12.0-18.0); LYMPHOCYTES 26.3 % (24-44); MCH 35.2 (27-36); MCV 103.5 fl (81-99); MONOCYTES 8.5 % (0-12); NEUTROPHILS 61.2 % (39-80); PLATELET COUNT 190 K/uL (140-440); RBC 3.93 M/ul (4.3-5.7); RDW 12.7 (10.5-15.0)
[2023-04-01 12:31] LABS: INR 1.16 (0.80-1.30); PROTIME 14.2 Sec (11.2-14.2)
[2023-04-01 12:36] LABS: ALBUMIN 3.6 g/dL (3.4-5.0); ALBUMIN/GLOBULIN RATIO 0.97 (1.1-2.4); ANION GAP 14.6 (7-21); BILIRUBIN, TOTAL 0.2 ng/dL (0.2-1.0); BUN/CREATININE RATIO 17.44 (6.0-28.6); CREATININE, SERUM 0.86 mg/dL (0.70-1.30); POTASSIUM 3.6 mmol/L (3.5-5.1); PROTEIN, TOTAL 7.3 g/dL (6.4-8.2)
[2023-04-01 13:44] VITALS: BP 120/82
== END 2023-04-01 13:43 | disposition home or self-care (01) ==
LOC: ED 11:14
PROVIDERS: Student in an Organized Health Care Education/Training Program
DX: M79.89 Other specified soft tissue disorders (principal); Z87.891 Personal history of nicotine dependence; Z79.82 Long term (current) use of aspirin; Z79.899 Other long term (current) drug therapy; Z88.1 Allergy status to other antibiotic agents; Z79.1 Long term (current) use of non-steroidal anti-inflammatories (NSAID)
CPT/HCPCS: 36415; 80053; 85025; 85610; 93971; 99284-25

== ENCOUNTER 2023-11-21 12:38 | Emergency (ER) | payer MEDICARE ==
[~2023-11-21] VITALS: Ht 177.8 cm; Wt 70.2 kg
[~2023-11-21 12:38] MED LIST changes: +ZINC50 M2 PO
[2023-11-21] MEDS ORDERED: SODIUM CHLORIDE 0.9% 1,000 ML IV PRN ×2 (13:00→17:30)
[2023-11-21 13:09] LABS: PH, VENOUS 7.256 (7.31-7.41)
[2023-11-21 13:12] LABS: BASOPHILS 0.7 % (0-2); EOSINOPHILS 0.5 % (0-6); HEMATOCRIT 57.8 % (35.0-50.0); HEMOGLOBIN 19.2 g/dL (12.0-18.0); LYMPHOCYTES 13.9 % (24-44); MCH 34.7 (27-36); MCHC 33.2 g/dl (30-36); MCV 104.6 fl (81-99); MONOCYTES 6.3 % (0-12); NEUTROPHILS 78.6 % (39-80); PLATELET COUNT 239 K/uL (140-440); RBC 5.53 M/ul (4.3-5.7); RDW 13.1 (10.5-15.0)
[2023-11-21 13:29] LABS: INR 3.8 (0.80-1.30); PROTIME 36.4 Sec (11.2-14.2)
[2023-11-21 13:37] LABS: LACTIC ACID, BLOOD 3.1 mmol/L (0.4-2.0)
[2023-11-21 13:45] LABS: ALBUMIN 4.1 g/dL (3.4-5.0); ALBUMIN/GLOBULIN RATIO 0.71 (1.1-2.4); ANION GAP 26.3 (7-21); BILIRUBIN, TOTAL 2.5 ng/dL (0.2-1.0); BUN/CREATININE RATIO 48.23 (6.0-28.6); CALCIUM 10.7 mg/dL (8.5-10.1); CREATININE, SERUM 2.26 mg/dL (0.70-1.30); POTASSIUM 4.3 mmol/L (3.5-5.1); PROTEIN, TOTAL 9.9 g/dL (6.4-8.2)
[2023-11-21 16:07] LABS: BILIRUBIN, URINE POSITIVE (negative); BLOOD/HGB, URINE LARGE (Negative); KETONE, URINE SMALL (Negative); LEUK ESTERASE, URINE NEGATIVE (negative); NITRITE, URINE NEGATIVE (negative); PH, URINE 5.5 (5-7)
[2023-11-21] MEDS ORDERED: FOSPHENYTOIN SODIUM 500 MG/10 ML VIAL IV ONE (16:15)
[2023-11-21 16:27] LABS: EPITHELIAL CELLS, URINE SQUAMOUS 1+ /lpf (0-1+)
[2023-11-21 16:28] LABS: CRYSTALS, URINE NONE SEEN (0-1+)
[2023-11-21 16:30] LABS: BACTERIA, URINE 2+ /hpf (negative)
[2023-11-21] MEDS ORDERED: METOPROLOL TARTRATE 5 MG/5 ML VIAL IV ONE (16:30)
[2023-11-21 16:36] LABS: COLLECTION TYPE, URINE CLEAN CATCH; REFLEX CULTURE, URINE Yes (No)
[2023-11-21] MEDS ORDERED: SODIUM CHLORIDE 0.9% 50 ML IV PRN (16:45)
[2023-11-21] MEDS ORDERED: diphenhydrAMINE HCL 50 MG/ML VIAL IV PRN (16:45)
[2023-11-21] MEDS ORDERED: PHYTONADIONE 10 MG in SODIUM CHLORIDE 0.9% 50 ML IV ONE (16:45)
[2023-11-21] MEDS ORDERED: HUMAN PROTHROMBIN COMPLX(PCC) 500 UNIT/20 ML VIAL IV ONE (16:45)
[2023-11-21 18:00] LABS: INR 1.41 (0.80-1.30); PROTIME 16.4 Sec (11.2-14.2)
[2023-11-21] MEDS ORDERED: SODIUM CHLORIDE 0.9% 1,000 ML IV SCH (18:00)
[2023-11-21 18:05] LABS: ALBUMIN 2.9 g/dL (3.4-5.0); ALBUMIN/GLOBULIN RATIO 0.62 (1.1-2.4); ANION GAP 19.3 (7-21); BILIRUBIN, TOTAL 2.1 ng/dL (0.2-1.0); BUN/CREATININE RATIO 54.16 (6.0-28.6); CREATININE, SERUM 1.68 mg/dL (0.70-1.30); POTASSIUM 4.3 mmol/L (3.5-5.1); PROTEIN, TOTAL 7.6 g/dL (6.4-8.2)
[2023-11-21 18:20] VITALS: BP 129/92
== END 2023-11-21 18:20 | disposition short-term general hospital (02) ==
LOC: ED 12:38
PROVIDERS: Emergency Medicine
DX: I61.9 Nontraumatic intracerebral hemorrhage, unspecified (principal); C71.9 Malignant neoplasm of brain, unspecified; D68.9 Coagulation defect, unspecified; E87.0 Hyperosmolality and hypernatremia; Z87.891 Personal history of nicotine dependence; Z88.1 Allergy status to other antibiotic agents; Z88.8 Allergy status to other drugs, medicaments and biological substances; Z79.899 Other long term (current) drug therapy
CPT/HCPCS: 36415; 51701; 70450; 71045; 80053; 81001; 82803; 83605; 85025; 85610; 87040; 87077; 87088; 87186; 99285-25; J3430; J7030; J7168; Q2009